=== PATIENT | female | born 1940 | race Caucasian/White ===

== ENCOUNTER 2016-10-24 15:14 | Inpatient (IN) ==
[2016-10-24] MEDS ORDERED: SODIUM CHLORIDE 0.9% 500 ML IV STA (15:30)
--- NOTE | 2016-10-24 16:02 | CT Report ---
History is head injury and pain There is mild diffuse atrophy with moderate patchy white matter low densities present No acute intracranial hemorrhage, mass effect, or evidence of acute cortical stroke is seen Extensive soft tissue swelling gas and facial bone fractures described on a facial CT of the same day. Impression: 1. Moderate patchy nonspecific white matter low densities most frequently associated with sequelae of microvascular disease 2. Facial bone fractures described on a facial bone CT of the same day The CT exam was performed using one or more of the following dose reduction techniques: Automated exposure control, adjustment of the mA and/or kV according to patient size, or use of iterative reconstruction technique. PROCEDURE INTERPRETED AT [facility] DEPARTMENT OF RADIOLOGY Final Report Signed by: Dr. Rosi Bowling
[2016-10-24 16:10] LABS: Hematocrit 30.4 VOL% (35.7-47.0); Hemoglobin 9.5 GM/DL (12.0-16.0); Mean Corpuscular HGB Conc 31.3 GM/DL (32-36); Mean Corpuscular Hemoglobin 32 PG (27-34); Mean Corpuscular Volume 101.7 FL (87-102); Mean Platelet Volume 9.9 FL (9.6-12.0); Platelet Count 121 T/CUMM (130-400); Red Blood Count 2.99 MC/CUMM (3.8-5.5); Red Cell Distribution Width 14.1 % (9.3-17.3); White Blood Count 5.3 T/CUMM (4-12)
[2016-10-24 16:11] LABS: Basophils % 0.2 % (0.0-0.8); Eosinophils # 0.2 10*3/uL (0.0-0.87); Eosinophils % 3.2 % (0.00-10.9); Immature Granulocytes % 0.4 %; Immature Granulocytes Absolute 0.02 #; Lymphocytes # 1.7 10*3/uL (1.4-4.0); Lymphocytes % 32.7 % (21.3-54.2); Monocytes # 0.5 10*3/uL (0.11-0.8); Monocytes % 9.5 % (1.7-12.7); Neutrophils # 2.8 10*3/uL (1.4-7.4)
--- NOTE | 2016-10-24 16:13 | CT Report ---
History is facial injury and pain with swelling Axial images obtained with 2-D multiplanar reconstruction images also stored and interpreted Findings: There is diffuse soft tissue swelling and soft tissue gas throughout the right face There is a near-complete hyperdense opacification of the right maxillary sinus There is a mildly comminuted nasal bone fracture with mild fractures the nasal septum as well which is minimally to the right of midline anteriorly. There are minimally displaced fracture lines through the anterior and posterior sams right maxillary sinus. There is a suspected nondisplaced fracture along the floor of the right orbit with tiny amounts of the intraorbital gas present. There is question of some very minimal buckling at the lateral wall of the right orbit more pronounced than on the left raising question of fracture on the right. The zygomatic arch is intact. The pterygoid wings are intact. Impression: Multiple facial bone fractures detailed above The CT exam was performed using one or more of the following dose reduction techniques: Automated exposure control, adjustment of the mA and/or kV according to patient size, or use of iterative reconstruction technique. PROCEDURE INTERPRETED AT [facility] DEPARTMENT OF RADIOLOGY Final Report Signed by: Dr. Rosi Bowling
[2016-10-24 16:27] LABS: Calcium 8.6 MG/DL (8.5-10.1); Potassium 3.9 MMOL/L (3.5-5.1)
--- NOTE | 2016-10-24 16:28 | CT Report ---
History is neck injury and pain Axial images obtained with two-dimensional plantar reconstruction images also stored and interpreted Findings: There is 5 mm subluxation at C4-5 with chronic facet changes at this level. There are degenerative changes throughout the cervical spine There is a tiny nondisplaced fracture of the left skull base at the articulation with the left lateral mass of C1 No additional cervical spine fractures are seen. There is a disc bulging and osteophytes with facet arthropathy present throughout cervical spine Impression: 1. Tiny nondisplaced fracture of the skull base at the articulation with the left lateral mass of C1 2. Degenerative changes without acute cervical spine fracture seen 3. 5 mm subluxation at C4-5 likely related to chronic facet disease The CT exam was performed using one or more of the following dose reduction techniques: Automated exposure control, adjustment of the mA and/or kV according to patient size, or use of iterative reconstruction technique. PROCEDURE INTERPRETED AT [facility] DEPARTMENT OF RADIOLOGY Final Report Signed by: Dr. Rosi Bowling
--- NOTE | 2016-10-24 16:30 | XRay Report ---
History is short of breath Comparison 02/18/2015 The sternal and hilar contours unchanged No congestive failure or confluent infiltrates seen. When the vessel shadows and rib calcifications overlie the right lung base Impression: No acute pathology seen PROCEDURE INTERPRETED AT [facility] DEPARTMENT OF RADIOLOGY Final Report Signed by: Dr. Rosi Bowling
[2016-10-24] MEDS ORDERED: ONDANSETRON 4 MG/2 ML VIAL ONE ×3 (16:39→19:55)
[2016-10-24] MEDS ORDERED: MORPHINE 2 MG/1 ML SYRINGE ONE (16:40)
[2016-10-24] MEDS ORDERED: MORPHINE 2 MG/1 ML SYRINGE IV STA (16:46)
[2016-10-24] MEDS ORDERED: ONDANSETRON 4 MG/2 ML VIAL IV STA (16:46)
--- NOTE | 2016-10-24 16:58 | EKG Report ---
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
--- NOTE | 2016-10-24 17:24 | Emergency Department Note ---
Cristian Marti Gwan, am scribing for, and in the presence of, Tao Duncan MD 15:35. Dakota Marti Phillip K, MD, personally performed the services described in this documentation, ascribed by Kirk Foster in my presence, and it is both accurate and complete [id number] . Arrival - Arrival Chief Complaint: Fall ED Nursing Triage Note: pt has about 6 inch laceration to forehead. pt fell from standing s/p hand slipping out door facing. pt has swelling to face and rt eye Mode of Arrival: Stretcher Limitations: No Limitations Source: Patient, Old Records Reviewed, RN Notes Reviewed - History of Present Illness HPI Narrative: Pt is a 76 y/o female, brought into ED by EMS with spinal package in place, who presents to the ED s/p fall today. Patient said that she fell down in a "dip" in the floor from her living room into her bedroom. Patient continued to stated that as she was falling she reached to grab hold of a 2x4 adjacent to the door facing and missed it causing injury to her head. Patient confirmed that she has pain in her right eye and jaw. She denies any pain in her hip, neck or head. During exam, backboard was removed but C-Collar remained in place. No other problems/complaints reported in ED. Onset (ago): minute(s) Consistency: constant Severity: severe Allergies/Adverse Reactions: Allergies Allergy/AdvReac Type Severity Reaction Status Date / Time No Known Allergies Allergy Verified 04/08/16 16:23 Home Medications: Home Medications Medication Instructions Recorded Confirmed Type Aspirin Chew Tab 81 mg PO DAILY 02/18/15 03/19/15 History Cetirizine HCl [ZyrTEC Cap] 10 mg PO DAILY 02/18/15 03/19/15 History Denosumab [Prolia] 1 ml IM DIRECTED 02/18/15 03/19/15 History Gabapentin Cap/Tab [Neurontin 300 mg PO TID 02/18/15 03/19/15 History Cap/Tab] Lovastatin 10 mg PO DAILY 02/18/15 03/19/15 History Methocarbamol Tab [Robaxin Tab] 500 mg PO QID 02/18/15 03/19/15 History Omeprazole [Prilosec] 20 mg PO DAILY 02/18/15 03/19/15 History Quinapril [Accupril] 20 mg PO DAILY 02/18/15 03/19/15 History Solifenacin [Vesicare] 5 mg PO DAILY 02/18/15 03/19/15 History clonazePAM TAB [KlonoPIN] 0.5 mg PO BEDTIME 02/18/15 03/19/15 History Albuterol Inhaler [Proventil 2 puff INH BID 02/19/15 03/19/15 History Inhaler] HYDROcodone/ACETAMIN 10-325 [[place] 1 tablet PO TID PRN 02/19/15 03/19/15 History 10-325] Acetaminophen Tab [Tylenol Tab] 650 mg PO Q6H PRN #0 tablet 02/25/15 03/19/15 Rx Docusate Sodium Cap [Colace Cap] 100 mg PO BID capsule 02/25/15 03/19/15 Rx Ferrous Sulfate Tab [Feosol 325 mg PO DAILY tablet 02/25/15 03/19/15 Rx Original Tab] Magnesium Oxide 800 mg PO BID #60 tablet 02/25/15 03/19/15 Rx NIFEdipine XL TAB [Procardia Xl] 30 mg PO BEDTIME #30 tablet 02/25/15 03/19/15 Rx Potassium Chloride Cap/Tab [K Dur] 20 meq PO BID #60 tablet 02/25/15 03/19/15 Rx Clindamycin Cap [Cleocin Cap] 300 mg PO Q6HR #40 capsule 03/24/16 Rx Valacyclovir HCl [Valacyclovir] 1,000 mg PO TID #21 tablet 03/24/16 Rx Menthol/Zinc Oxide Oint 1 applic TOP BID #71 gm 04/08/16 Rx [Calmoseptine Oint] Review of System - Review of System 12 point system: reviewed and no additional remarkable complaints except as stated - Review of System Eyes: Present: as per HPI, pain (right eye) Head/Ears/Nose/Throat: Present: see HPI, other (cut to head) Medical,Surgical,& Family Hx - Medical History Cardio: History of: Hypertension No history of: [place], Pacemaker, Cardiovascular Problems Neurology: No history of: Cerebrovascular Accident, Seizures HEENT: History of: Eye Problem (hx of macular degeneration of right eye, cataracts) Endocrine: No history of: Diabetes Mellitus (IDDM), Diabetes Mellitus (NIDDM) Respiratory: History of: Asthma, COPD, Respiratory Problems (emphysema) Renal: No history of: Renal Failure, Renal Problems Genitourinary: History of: Bladder Problem (hx of bladder surgery) No history of: Kidney Stones Gastrointestinal: History of: GERD No history of: Gastrointestinal Bleed, Liver Problems, GI Problems Musculoskeletal: History of: Back/Neck Problems, Degenerative Disk Disease ( lumbar) Hematology: History of: Anemia - Surgical History Cardiac Surgeries: Patient Denies: Femoral-Popliteal Bypass Graft, Cardiac Catheterization, Cardiac Surgery, Carotid Endarterectomy, Internal Defibrillator, Vascular Access Devices Thoracic Surgeries: Patient denies;: Lobectomy Neurologic Surgeries: Patient denies: Neurologic Surgery HEENT Surgeries: Surgical HX of: Eye Surgery (bilateral cataract surgery) Patient denies: Carotid Endarterectomy Abdominal Surgeries: Surgical HX of: Colonoscopy, EGD Patient denies: Splenectomy Reproductive Surgeries: Surgical HX of;: Genitourinary Surgery (pt states previous bladder surgery), Hysterectomy (1984) Orthopedic Surgeries: Surgical HX of;: Orthopedic Surgery, Total Hip Replacement (right) - Family History Family History: Reports;: Family Hypertension (mother, sister) - Social History Smoking Status: Never smoker Frequency of Alcohol Use: None Type of Drug Use: None Exam Vital Signs: Vital Signs Temperature 97 F L 10/24/16 15:15 Pulse Rate 88 10/24/16 15:15 Respiratory Rate 18 10/24/16 15:15 Blood Pressure 153/97 10/24/16 15:15 O2 Sat by Pulse Oximetry 98 10/24/16 15:15 - General General appearance: alert, in no apparent distress - Head Head exam: Present: other (14 similar laceration to the frontal scalp. Is also a large amount of swelling and ecchymosis noted of the right maxilla and right periorbital area.) - Eye Eye exam: Present: other (left pupil reacts normally. Unable to evaluate the right eye secondary to swelling.) - ENT ENT exam: Present: normal oropharynx, mucous membranes moist, normal external ear exam, other (un able to visualize the right TM.) - Neck Neck exam: Present: normal inspection, other (C-Collar in place). Absent: tenderness - Chest Chest inspection: Present: symmetric chest wall rise. Absent: tenderness - Respiratory Respiratory exam: Present: normal lung sounds bilaterally. Absent: respiratory distress - Cardiovascular Cardiovascular exam: Present: regular rate, normal rhythm, normal heart sounds. Absent: murmur, rubs - Abdominal Exam Abdominal exam: Present: soft, normal bowel sounds. Absent: distention, tenderness - Extremities Exam Extremities exam: Present: full ROM. Absent: tenderness - Back Exam Back exam: Present: normal inspection - Neurological Exam Neurological exam: Present: alert, oriented X3, CN II-XII intact. Absent: motor sensory deficit - Psychiatric Psychiatric exam: Present: normal affect, normal mood - Skin Skin exam: Present: other (14cm frontal laceration to scalp down to the bone) Course Course Narrative: Patient discussed with Dr. Quezada at 430. He will take to surgery to repair her scalp laceration. Results - Labs CBC & BMP: 10/24/16 15:58 10/24/16 15:58 Lab Results: I have reviewed the patients labs Labs: Laboratory Tests 10/24/16 15:58 WBC 5.3 RBC 2.99 L Hgb 9.5 L Hct 30.4 L MCHC 31.3 L Plt Count 121 L Laboratory Tests 10/24/16 10/24/16 15:58 15:58 Sodium 150 H Potassium 3.9 Chloride 108 H Carbon Dioxide 31 BUN 19 H Creatinine 0.90 BUN/Creatinine Ratio 21.00 H Glucose 122 H Blood Type AB POSITIVE Antibody Screen Negative - Diagnostic Findings Procedure: Chest x-ray: report reviewed by me (No acute pathololgy seen.), CT: report reviewed by me (Face CT: Mulitple facial bone fractures detailed above. Head CT: 1. Moderate patchy nonspecific white matter low dnsities most frequently associated with sequelae of microvascular disease. 2. Facial bone fracture described on a facial bone CT of the same day. Cervical Spine CT: 1. Tiny nondisplaced fracture of the skull base at the articulation with the left lateral mass of C1. 2. Degenerative changes without acute cervical spine fracture seen. 3. 5mm subluxation at C4-5 likely related to chronic facet disease. ) Disposition Clinical Impression: large frontal scalp laceration, fracture of the right maxillary sinus, prior to the right orbital floor, nondisplaced fracture base of the skull, Nasal bone fracture Case discussed with: patient, patient's family Disposition: Still a Patient Condition: Guarded
[2016-10-24] MEDS ORDERED: DEXAMETHASONE 4 MG/1 ML VIAL ONE (17:42)
[2016-10-24] MEDS ORDERED: PROPOFOL 200 MG/20 ML VIAL IV ONE (17:42)
[2016-10-24] MEDS ORDERED: LIDOCAINE 2% 5 ML VIAL ONE (17:42)
[2016-10-24] MEDS ORDERED: SUCCINYLCHOLINE 200 MG/10 ML VIAL ONE (17:42)
[2016-10-24] MEDS ORDERED: cefTRIAXone 1,000 MG VIAL ONE (18:07)
[2016-10-24] MEDS ORDERED: MUPIROCIN 2% OINT 22 GM TUBE TOP ONE (18:49)
[2016-10-24] MEDS ORDERED: BUPIVACAINE MPF 0.25% /EPI 30 ML VIAL ONE (19:04)
[2016-10-24] MEDS ORDERED: IBUPROFEN 600 MG TABLET PO PRN (19:37)
[2016-10-24] MEDS ORDERED: KETOROLAC 15 MG/1 ML VIAL IV PRN (19:37)
[2016-10-24] MEDS ORDERED: ONDANSETRON 4 MG/2 ML VIAL IV PRN ×2 (19:37→19:50)
[2016-10-24] MEDS ORDERED: ACETAMINOPHEN 500 MG TABLET PO PRN (19:37)
--- NOTE | 2016-10-24 19:45 | Anesthesia ---
Anesthesia Post OP - Post Ansesthetic Evaluation Patient seen in post op: Yes Resp: within normal limits CV: within normal limits Mental: within normal limits Temp: within normal limits [id number]: within normal limits Nausea and Vomiting: within normal limits Pain: within normal limits
--- NOTE | 2016-10-24 19:46 | History & Physical Report ---
Assessment and Plan - Time spent with patient Time spent with patient: Greater than 30 minutes (1) Laceration of forehead, complicated Status: Acute Assessment and plan: Repaired in the OR please see surgical note for more information we will observe at least overnight or a day I will consult medicine for medical management Current Visit: Yes Qualifiers: Encounter type: initial encounter Qualified Code(s): S01.81XA - Laceration without foreign body of other part of head, initial encounter (2) Fall (on) (from) other stairs and steps, initial encounter Status: Acute Current Visit: Yes (3) Nasal bone fracture Status: Acute Current Visit: Yes History of Present Illness Chief complaint: Fall with complex head laceration History of present illness: Ms. Neri is a 76 year old female with a fall and complex head laceration brought to the emergency room ENT consulted patient taken back to the OR for repair of complex head laceration. Will be observed overnight with medical management CT of neck reveals stable chronic degenerative changes and she is cleared to have c-collar taken off after surgery and awake and following commands Home Medications Medication Instructions Recorded Confirmed Type Aspirin Chew Tab 81 mg PO DAILY 02/18/15 03/19/15 History Cetirizine HCl [ZyrTEC Cap] 10 mg PO DAILY 02/18/15 03/19/15 History Denosumab [Prolia] 1 ml IM DIRECTED 02/18/15 03/19/15 History Gabapentin Cap/Tab [Neurontin 300 mg PO TID 02/18/15 03/19/15 History Cap/Tab] Lovastatin 10 mg PO DAILY 02/18/15 03/19/15 History Methocarbamol Tab [Robaxin Tab] 500 mg PO QID 02/18/15 03/19/15 History Omeprazole [Prilosec] 20 mg PO DAILY 02/18/15 03/19/15 History Quinapril [Accupril] 20 mg PO DAILY 02/18/15 03/19/15 History Solifenacin [Vesicare] 5 mg PO DAILY 02/18/15 03/19/15 History clonazePAM TAB [KlonoPIN] 0.5 mg PO BEDTIME 02/18/15 03/19/15 History Albuterol Inhaler [Proventil 2 puff INH BID 02/19/15 03/19/15 History Inhaler] HYDROcodone/ACETAMIN 10-325 [[place] 1 tablet PO TID PRN 02/19/15 03/19/15 History 10-325] Acetaminophen Tab [Tylenol Tab] 650 mg PO Q6H PRN #0 tablet 02/25/15 03/19/15 Rx Docusate Sodium Cap [Colace Cap] 100 mg PO BID capsule 02/25/15 03/19/15 Rx Ferrous Sulfate Tab [Feosol 325 mg PO DAILY tablet 02/25/15 03/19/15 Rx Original Tab] Magnesium Oxide 800 mg PO BID #60 tablet 02/25/15 03/19/15 Rx NIFEdipine XL TAB [Procardia Xl] 30 mg PO BEDTIME #30 tablet 02/25/15 03/19/15 Rx Potassium Chloride Cap/Tab [K Dur] 20 meq PO BID #60 tablet 02/25/15 03/19/15 Rx Clindamycin Cap [Cleocin Cap] 300 mg PO Q6HR #40 capsule 03/24/16 Rx Valacyclovir HCl [Valacyclovir] 1,000 mg PO TID #21 tablet 03/24/16 Rx Menthol/Zinc Oxide Oint 1 applic TOP BID #71 gm 04/08/16 Rx [Calmoseptine Oint] Allergies Allergy/AdvReac Type Severity Reaction Status Date / Time No Known Allergies Allergy Verified 04/08/16 16:23 12 point system: reviewed and no additional remarkable complaints except as stated Medical,Surgical,& Family Hx - Medical History Cardio: History of: Hypertension No history of: [place], Pacemaker, Cardiovascular Problems Neurology: No history of: Cerebrovascular Accident, Seizures HEENT: History of: Eye Problem (hx of macular degeneration of right eye, cataracts) Endocrine: No history of: Diabetes Mellitus (IDDM), Diabetes Mellitus (NIDDM) Respiratory: History of: Asthma, COPD, Respiratory Problems (emphysema) Renal: No history of: Renal Failure, Renal Problems Genitourinary: History of: Bladder Problem (hx of bladder surgery) No history of: Kidney Stones Gastrointestinal: History of: GERD No history of: Gastrointestinal Bleed, Liver Problems, GI Problems Musculoskeletal: History of: Back/Neck Problems, Degenerative Disk Disease ( lumbar) Hematology: History of: Anemia - Surgical History Cardiac Surgeries: Patient Denies: Femoral-Popliteal Bypass Graft, Cardiac Catheterization, Cardiac Surgery, Carotid Endarterectomy, Internal Defibrillator, Vascular Access Devices Thoracic Surgeries: Patient denies;: Lobectomy Neurologic Surgeries: Patient denies: Neurologic Surgery HEENT Surgeries: Surgical HX of: Eye Surgery (bilateral cataract surgery) Patient denies: Carotid Endarterectomy Abdominal Surgeries: Surgical HX of: Colonoscopy, EGD Patient denies: Splenectomy Reproductive Surgeries: Surgical HX of;: Genitourinary Surgery (pt states previous bladder surgery), Hysterectomy (1984) Orthopedic Surgeries: Surgical HX of;: Orthopedic Surgery, Total Hip Replacement (right) - Family History Family History: Reports;: Family Hypertension (mother, sister) - Social History Smoking Status: Never smoker Frequency of Alcohol Use: None Type of Drug Use: None Exam - Constitutional Vitals: Period Temp Pulse Resp BP Sys/Arzola Pulse Ox Last 24 Hr 97 F-99.9 F 88-99 18-20 153-172/96-97 97-98 General appearance: normal weight, mild distress - Head Head exam: Present: abrasion, contusion, hematoma, laceration (14 cm complex laceration involving the forehead extending through the frontalis muscle with complex repair in the OR) - Eye Eye exam: Present: EOMI, periorbital swelling - ENT ENT exam: Present: normal exam, normal external ear exam, normal oropharynx, other (CT reveals nondisplaced nasal bone fracture and possible orbital fracture with no gross herniation at this point. No obvious extraocular muscles entrapped) - Neck Neck exam: Present: other (Chronic 5 mm subluxation from degenerative changes nondisplaced base of skull possible fracture overall C-spine is cleared for removal of c-collar) - Respiratory Respiratory exam: Present: clear to auscultation bilaterally - Cardiovascular Cardiovascular exam: Present: regular rate and rhythm - GI/Abdominal GI/Abdominal exam: Present: normal bowel sounds - Extremities Exam Extremities exam: Present: normal inspection, normal capillary refill - Neurological Exam Neurological exam: Present: alert (Somewhat distressed over the situation but is aware and alert and oriented), oriented X3, CN II-XII intact - Psychiatric Psychiatric exam: Present: normal affect, normal mood - Skin Skin exam: Present: normal color, warm Results - Labs CBC & BMP: 10/24/16 15:58 10/24/16 15:58 Quality Measures - VTE Contraindication to Pharmacological VTE Prophylaxis: High Risk of Bleeding
[2016-10-24] MEDS ORDERED: HYDROmorphone 2 MG/1 ML VIAL IV PRN (19:50)
[2016-10-24] MEDS ORDERED: SEVOFLURANE 1 UNIT/15 MINUTE INH ONE (19:52)
[2016-10-24] MEDS ORDERED: MIDAZOLAM 2 MG/2 ML VIAL ONE (19:53)
[2016-10-24] MEDS ORDERED: fentaNYL 100 MCG/2 ML VIAL ONE (19:53)
[2016-10-24] MEDS ORDERED: HYDROmorphone 2 MG/1 ML VIAL ONE ×2 (19:53→19:55)
[2016-10-24] MEDS ORDERED: LACTATED RINGERS 1,000 ML IV SCH ×2 (20:00)
[2016-10-24] MEDS: cefTRIAXone 1,000 MG in SODIUM CHLORIDE 0.9% 100 ML IV SCH (20:36)
[2016-10-24] MEDS: DEXAMETHASONE 4 MG/1 ML VIAL IV SCH (20:37)
[2016-10-24] MEDS: MUPIROCIN 2% OINT 22 GM TUBE TOP SCH (21:10)
--- NOTE | 2016-10-24 21:30 | Hospitalist Consult Note ---
Assessment and Plan (1) Hypernatremia Status: Acute Current Visit: Yes (2) History of COPD Status: Acute Current Visit: Yes (3) Hypertension Status: Acute Current Visit: Yes (4) History of rheumatoid arthritis Status: Acute Current Visit: Yes (5) Laceration of forehead, complicated Status: Acute Current Visit: Yes Qualifiers: Encounter type: initial encounter Qualified Code(s): S01.81XA - Laceration without foreign body of other part of head, initial encounter (6) Fall (on) (from) other stairs and steps, initial encounter Status: Acute Assessment and plan: Our plan for this patient will be to provide gentle hydration with half-normal saline through the night recheck a BMP in 7 AM. Continue home meds as appropriate we will continue to follow along with you Current Visit: Yes History of Present Illness - Consult Narrative Reason for consult: Medical problems History of present illness: Ms. Neri is a 76 year old female with past medical history significant for rheumatoid arthritis hypertension asthma COPD degenerative disc disease who is in her normal state of health until today. Patient suffered a fall at her house and received a 14 cm complex laceration. This required closure in the operating room by Dr. Quezada. Patient's workup included a CT scan of her cervical spine and face and head. Patient c-collar was cleared and removed after surgery. Patient received multiple fractures in the face. Patient was taken to the OR and had a repair done of the complex laceration. I was consulted for her medical problems. CC: Kuldip Quezada, DO - Home Medications and Allergies Home Medications: Home Medications Medication Instructions Recorded Confirmed Type Aspirin Chew Tab 81 mg PO DAILY 02/18/15 10/24/16 History Cetirizine HCl [ZyrTEC Cap] 10 mg PO DAILY 02/18/15 10/24/16 History Denosumab [Prolia] 1 ml IM DIRECTED 02/18/15 10/24/16 History Gabapentin Cap/Tab [Neurontin 300 mg PO TID 02/18/15 10/24/16 History Cap/Tab] Lovastatin 10 mg PO DAILY 02/18/15 10/24/16 History Methocarbamol Tab [Robaxin Tab] 500 mg PO QID 02/18/15 10/24/16 History Omeprazole [Prilosec] 20 mg PO DAILY 02/18/15 10/24/16 History Quinapril [Accupril] 20 mg PO DAILY 02/18/15 10/24/16 History Solifenacin [Vesicare] 5 mg PO DAILY 02/18/15 10/24/16 History clonazePAM TAB [KlonoPIN] 0.5 mg PO BEDTIME 02/18/15 10/24/16 History Albuterol Inhaler [Proventil 2 puff INH BID 02/19/15 10/24/16 History Inhaler] HYDROcodone/ACETAMIN 10-325 [[place] 1 tablet PO TID PRN 02/19/15 10/24/16 History 10-325] Acetaminophen Tab [Tylenol Tab] 650 mg PO Q6H PRN #0 tablet 02/25/15 10/24/16 Rx Docusate Sodium Cap [Colace Cap] 100 mg PO BID capsule 02/25/15 10/24/16 Rx Ferrous Sulfate Tab [Feosol 325 mg PO DAILY tablet 02/25/15 10/24/16 Rx Original Tab] Magnesium Oxide 800 mg PO BID #60 tablet 02/25/15 10/24/16 Rx NIFEdipine XL TAB [Procardia Xl] 30 mg PO BEDTIME #30 tablet 02/25/15 10/24/16 Rx Potassium Chloride Cap/Tab [K Dur] 20 meq PO BID #60 tablet 02/25/15 10/24/16 Rx Clindamycin Cap [Cleocin Cap] 300 mg PO Q6HR #40 capsule 03/24/16 10/24/16 Rx Valacyclovir HCl [Valacyclovir] 1,000 mg PO TID #21 tablet 03/24/16 10/24/16 Rx Menthol/Zinc Oxide Oint 1 applic TOP BID #71 gm 04/08/16 10/24/16 Rx [Calmoseptine Oint] Allergies/Adverse Reactions: Allergies Allergy/AdvReac Type Severity Reaction Status Date / Time No Known Allergies Allergy Verified 10/24/16 21:09 Medical,Surgical,& Family Hx - Medical History Cardio: History of: Hypertension No history of: CT, Pacemaker, Cardiovascular Problems Neurology: No history of: Cerebrovascular Accident, Seizures HEENT: History of: Eye Problem (hx of macular degeneration of right eye, cataracts) Endocrine: No history of: Diabetes Mellitus (IDDM), Diabetes Mellitus (NIDDM) Respiratory: History of: Asthma, COPD, Respiratory Problems (emphysema) Renal: No history of: Renal Failure, Renal Problems Genitourinary: History of: Bladder Problem (hx of bladder surgery) No history of: Kidney Stones Gastrointestinal: History of: GERD No history of: Gastrointestinal Bleed, Liver Problems, GI Problems Musculoskeletal: History of: Back/Neck Problems, Degenerative Disk Disease ( lumbar) Hematology: History of: Anemia - Surgical History Cardiac Surgeries: Patient Denies: Femoral-Popliteal Bypass Graft, Cardiac Catheterization, Cardiac Surgery, Carotid Endarterectomy, Internal Defibrillator, Vascular Access Devices Thoracic Surgeries: Patient denies;: Lobectomy Neurologic Surgeries: Patient denies: Neurologic Surgery HEENT Surgeries: Surgical HX of: Eye Surgery (bilateral cataract surgery) Patient denies: Carotid Endarterectomy Abdominal Surgeries: Surgical HX of: Colonoscopy, EGD Patient denies: Splenectomy Reproductive Surgeries: Surgical HX of;: Genitourinary Surgery (pt states previous bladder surgery), Hysterectomy (1984) Orthopedic Surgeries: Surgical HX of;: Orthopedic Surgery, Total Hip Replacement (right) - Family History Family History: Reports;: Family Hypertension (mother, sister) - Social History Smoking Status: Never smoker Frequency of Alcohol Use: None Type of Drug Use: None 12 point system: reviewed and no additional remarkable complaints except as stated Exam - Constitutional Vitals: Period Temp Pulse Resp BP Sys/Arzola Pulse Ox Last 24 Hr 98.1 F-99.6 F 93-97 16-18 124-161/73-93 96-100 General appearance: normal weight - Head Head exam: Present: other (Patient has a bandage on her forehead and ice packs on her eyes) - Eye Eye exam: Present: other (Unable to examine secondary to icepack) - ENT ENT exam: Present: normal exam - Neck Neck exam: Present: normal inspection - Respiratory Respiratory exam: Present: clear to auscultation bilaterally - Cardiovascular Cardiovascular exam: Present: regular rate and rhythm - GI/Abdominal GI/Abdominal exam: Present: normal bowel sounds - Extremities Exam Extremities exam: Present: normal inspection - Back Exam Back exam: Present: normal inspection - Neurological Exam Neurological exam: Present: alert - Psychiatric Psychiatric exam: Present: normal affect - Skin Skin exam: Present: normal color Results - Labs CBC & BMP: 10/24/16 15:58 10/24/16 15:58 Quality Measures - VTE Contraindication to Pharmacological VTE Prophylaxis: High Risk of Bleeding
[2016-10-24] MEDS ORDERED: ACETAMINOPHEN 325 MG TABLET PO PRN (21:37)
[2016-10-24] MEDS: SODIUM CHLORIDE 0.45% 1,000 ML IV SCH (22:52)
[2016-10-25] MEDS: DEXAMETHASONE 4 MG/1 ML VIAL IV SCH ×3 (03:42→21:25)
[2016-10-25] MEDS: ALBUTEROL 2.5 MG/3 ML NEB RESP TX SCH ×2 (07:04→18:30)
[2016-10-25 07:18] LABS: Basophils % 0.1 % (0.0-0.8); Hematocrit 24.3 VOL% (35.7-47.0); Hemoglobin 7.8 GM/DL (12.0-16.0); Immature Granulocytes % 0.8 %; Immature Granulocytes Absolute 0.06 #; Lymphocytes # 0.7 10*3/uL (1.4-4.0); Lymphocytes % 9.6 % (21.3-54.2); Mean Corpuscular HGB Conc 32.1 GM/DL (32-36); Mean Corpuscular Hemoglobin 32 PG (27-34); Mean Platelet Volume 10.1 FL (9.6-12.0); Monocytes # 0.1 10*3/uL (0.11-0.8); Monocytes % 1.5 % (1.7-12.7); Neutrophils # 6.4 10*3/uL (1.4-7.4); Platelet Count 106 T/CUMM (130-400); Red Blood Count 2.43 MC/CUMM (3.8-5.5); Red Cell Distribution Width 14.1 % (9.3-17.3); White Blood Count 7.3 T/CUMM (4-12)
[2016-10-25 07:27] LABS: Hypochromasia Slight; Polychromasia Slight
[2016-10-25 07:40] LABS: Calcium 8.3 MG/DL (8.5-10.1); Magnesium 2.1 MG/DL (1.8-2.4); Osmolality,Calculated 296.4 MOS/KG (273-304); Potassium 4.5 MMOL/L (3.5-5.1)
[2016-10-25] MEDS ORDERED: SODIUM CHLORIDE 0.9% 250 ML IV PRN (07:47)
--- NOTE | 2016-10-25 07:50 | Hospitalist Progress Note ---
Assessment and Plan (1) Acute blood loss anemia Status: Acute Assessment and plan: we will transfuse with one unit of packed cells, cbc in am Current Visit: Yes (2) Hypernatremia Status: Acute Assessment and plan: Continue 1/2Na, follow bmp in am Current Visit: Yes (3) History of rheumatoid arthritis Status: Acute Assessment and plan: stable Current Visit: Yes (4) Hypertension Status: Acute Assessment and plan: stable on current regime. Current Visit: Yes (5) Dyslipidemia Status: Acute Assessment and plan: able on statins Current Visit: Yes (6) Laceration of forehead, complicated Status: Acute Assessment and plan: surgery is following Current Visit: Yes Qualifiers: Encounter type: initial encounter Qualified Code(s): S01.81XA - Laceration without foreign body of other part of head, initial encounter Hospitalist: Subjective Interval history: Patient seen, she was reluctant to be transfused with blood. She wanted her family to give the consent. .H/H dropped to 7.8/24.3 Exam - Constitutional Vitals: Period Temp Pulse Resp BP Sys/Arzola Pulse Ox Last 24 Hr 97.6 F-99.8 F 81-97 16-20 106-167/65-93 92-100 General appearance: no acute distress, other (forehead bandaged with multiple bruises on the face) - Head Head exam: Present: normal inspection - Neck Neck exam: Present: normal inspection - Respiratory Respiratory exam: Present: clear to auscultation bilaterally - Cardiovascular Cardiovascular exam: Present: regular rate and rhythm - GI/Abdominal GI/Abdominal exam: Present: normal bowel sounds - Extremities Exam Extremities exam: Present: normal inspection Results - Labs CBC & BMP: 10/25/16 06:55 10/25/16 06:55 Lab Results: I have reviewed the past 24 hour labs Quality Measures - VTE Contraindication to Pharmacological VTE Prophylaxis: High Risk of Bleeding Specialty Discharge - Follow Up or Referrals Follow up with: Kuldip Quezada DO [Physician] -
--- NOTE | 2016-10-25 08:04 | Progress Note ---
Assessment and Plan - Time spent with patient Time spent with patient: Less than 30 minutes (1) Laceration of forehead, complicated Status: Acute Assessment and plan: Repaired in the OR please see surgical note for more information we will observe at least overnight or a day I will consult medicine for medical management 10/25/2016 postop day #1 Plan for discharge as soon as possibly tomorrow if medically cleared, rn case management consult, physical therapy consult to help ambulate, addition of Ambien as needed nightly, message to caregiver patient may blow her nose as needed, I have reviewed and agree with the hospitalists transfusion plans and treatment and I thank them for their help with this case. Current Visit: Yes Qualifiers: Encounter type: initial encounter Qualified Code(s): S01.81XA - Laceration without foreign body of other part of head, initial encounter (2) Fall (on) (from) other stairs and steps, initial encounter Status: Acute Current Visit: Yes (3) Nasal bone fracture Status: Acute Current Visit: Yes Family Medicine PN Sub Interval history: Postop day #1. Patient had some difficulty sleeping last night I will add Ambien as needed to her chart. Additionally we will get rn case management to evaluate the patient and work on hopefully discharging her tomorrow if she is medically cleared and well if not we can continue to watch her. She states that she has some nasal drainage and epistaxis that is most likely from her previous fall and does not appear to be acute at this time I mentioned to the nurses it is okay for her to blow her nose. We will continue to watch for any changing signs or mentation make sure we do not have any late onset cerebral hemorrhage. Exam (Progress Note) - Constitutional Vitals: Period Temp Pulse Resp BP Sys/Arzola Pulse Ox Last 24 Hr 97.6 F-99.8 F 81-97 16-20 106-167/65-93 92-100 General appearance: normal weight, no acute distress - Head Head exam: Present: abrasion, contusion, hematoma, laceration (Healing well the nurses have done well keeping it moist with mupirocin as instructed) - Eye Eye exam: Present: EOMI, periorbital swelling - ENT ENT exam: Present: normal exam, normal external ear exam, normal oropharynx, other (Mild old epistaxis no acute hemorrhage) - Neck Neck exam: Present: normal inspection, lymphadenopathy - Respiratory Respiratory exam: Present: other (No shortness of breath or difficulty breathing ) - GI/Abdominal GI/Abdominal exam: Present: soft (No gross organomegaly) - Extremities Exam Extremities exam: Present: normal inspection, normal capillary refill - Neurological Exam Neurological exam: Present: alert, oriented X3, CN II-XII intact - Psychiatric Psychiatric exam: Present: normal affect, normal mood - Skin Skin exam: Present: normal color, warm, other (Ecchymosis of the left shoulder and face from the fall) Results - Labs CBC & BMP: 10/25/16 06:55 10/25/16 06:55 Lab Results: I have reviewed the past 24 hour labs (I agree with hospitalist transfusing order that will be performed this morning) - Diagnostic Findings Procedure: CT: pending, image reviewed by me, report reviewed by me Quality Measures - VTE Contraindication to Pharmacological VTE Prophylaxis: High Risk of Bleeding
[2016-10-25 08:14] LABS: Free T4 (Free Thyroxine) 1.45 NG/DL (0.76-1.46); Risk Ratio 4.56; Thyroid Stimulating Hormone 1.7 uIU/ml (0.358-3.74); VLDL CHOLESTEROL 24.2 MG/DL
[2016-10-25] MEDS: cefTRIAXone 1,000 MG in SODIUM CHLORIDE 0.9% 100 ML IV SCH ×2 (08:57→21:26)
[2016-10-25] MEDS: METHOCARBAMOL 500 MG TABLET PO SCH ×4 (08:58→21:31)
[2016-10-25] MEDS: FERROUS SULFATE 325 MG TABLET PO SCH (08:58)
[2016-10-25] MEDS: DOCUSATE SODIUM 100 MG CAPSULE PO SCH ×3 (08:59→21:31)
[2016-10-25] MEDS: CETIRIZINE 10 MG TABLET PO SCH (08:59)
[2016-10-25] MEDS: QUINAPRIL 20 MG TABLET PO SCH (08:59)
[2016-10-25] MEDS: GABAPENTIN 300 MG CAPSULE PO SCH ×3 (08:59→21:31)
[2016-10-25] MEDS: PANTOPRAZOLE 40 MG TABLET PO SCH (08:59)
[2016-10-25] MEDS: ASPIRIN CHEW 81 MG TABLET PO SCH (08:59)
[2016-10-25] MEDS: valACYclovir 500 MG TABLET PO SCH ×4 (08:59→21:31)
[2016-10-25] MEDS: MAGNESIUM OXIDE 400 MG TABLET PO SCH ×2 (08:59→21:31)
[2016-10-25] MEDS: LOVASTATIN 20 MG TABLET PO SCH (08:59)
[2016-10-25] MEDS: SOLIFENACIN 5 MG TABLET PO SCH (08:59)
[2016-10-25] MEDS: POTASSIUM CHLORIDE 20 MEQ TABLET PO SCH ×2 (08:59→21:31)
[2016-10-25] MEDS: MUPIROCIN 2% OINT 22 GM TUBE TOP SCH ×3 (09:04→21:32)
[2016-10-25] MEDS: MENTHOL/ZINC OXIDE OINT 71 GM JAR TOP SCH ×3 (09:05→21:32)
[2016-10-25 14:48] LABS: Apearance,Urine CLEAR (Clear); Bacteria,Urine Occasional /HPF (Few); Bilirubin,Urine Negative (Negative); Blood, Urine Negative (Negative); Glucose,Urine (UA) 50 mg/dL (Negative); Ketones,Urine Negative (Negative); Mucus,Urine Occasional /LPF (Occasional); Nitrite,Urine Negative (Negative); Protein,Urine Negative; RBC,Urine 2 /HPF (0-4); Urine Color Yellow (Yellow); Urine Specific Gravity 1.014 (1.001-1.035); Urine Urobilinogen < 2.0 EU/DL (0.2-1.0); WBC,Urine 4 /HPF (0-6)
[2016-10-25] MEDS: clonazePAM 0.5 MG TABLET PO SCH (21:31)
[2016-10-25] MEDS: SODIUM CHLORIDE 0.45% 1,000 ML IV SCH (21:31)
[2016-10-25] MEDS: ZALEPLON 5 MG CAPSULE PO PRN (21:40)
[2016-10-26] MEDS: DEXAMETHASONE 4 MG/1 ML VIAL IV SCH ×3 (04:36→21:14)
[2016-10-26 06:05] LABS: Basophils % 0.1 % (0.0-0.8); Hematocrit 20.9 VOL% (35.7-47.0); Hemoglobin 6.8 GM/DL (12.0-16.0); Immature Granulocytes % 0.7 %; Immature Granulocytes Absolute 0.05 #; Lymphocytes # 0.6 10*3/uL (1.4-4.0); Lymphocytes % 7.6 % (21.3-54.2); Mean Corpuscular HGB Conc 32.5 GM/DL (32-36); Mean Corpuscular Hemoglobin 32 PG (27-34); Mean Corpuscular Volume 98.6 FL (87-102); Mean Platelet Volume 10.9 FL (9.6-12.0); Monocytes # 0.3 10*3/uL (0.11-0.8); Monocytes % 4.1 % (1.7-12.7); Neutrophils # 6.3 10*3/uL (1.4-7.4); Neutrophils % 87.5 % (38.7-73.9); Platelet Count 101 T/CUMM (130-400); Red Blood Count 2.12 MC/CUMM (3.8-5.5); Red Cell Distribution Width 14.8 % (9.3-17.3); White Blood Count 7.2 T/CUMM (4-12)
[2016-10-26] MEDS: SODIUM CHLORIDE 0.45% 1,000 ML IV SCH ×3 (06:05→19:43)
[2016-10-26 06:28] LABS: Calcium 8.3 MG/DL (8.5-10.1); Osmolality,Calculated 301.1 MOS/KG (273-304); Potassium 4.4 MMOL/L (3.5-5.1)
[2016-10-26 06:46] LABS: Hypochromasia 1+; Lymphocytes 8 % (20-55); Ovalocytes Slight; Platelet Estimate Normal; Segmented Neutrophils 87 % (50-85); Total Cells Counted 100
[2016-10-26] MEDS: ALBUTEROL 2.5 MG/3 ML NEB RESP TX SCH ×2 (07:24→19:23)
--- NOTE | 2016-10-26 08:44 | Progress Note ---
Assessment and Plan - Time spent with patient Time spent with patient: Greater than 30 minutes (1) Laceration of forehead, complicated Status: Acute Assessment and plan: Repaired in the OR please see surgical note for more information we will observe at least overnight or a day I will consult medicine for medical management 10/25/2016 postop day #1 Plan for discharge as soon as possibly tomorrow if medically cleared, mental health case manager consult, physical therapy consult to help ambulate, addition of Ambien as needed nightly, message to caregiver patient may blow her nose as needed, I have reviewed and agree with the hospitalists transfusion plans and treatment and I thank them for their help with this case. 10/26/2016 Unfortunately unless patient changes her mind we may need to watch the patient for another day additionally her symptoms may linger because of her refusal of blood products. Additionally with her history of a fall and bruising of the lower extremities and her same she is having difficulty ambulating I think it would be prudent while were waiting to obtain x-rays of her hips make sure that her left hip is not broken and there is no displacement of her right hip or the hardware. If the patient changes her mind and desires to go home today I would not be against this. Current Visit: Yes Qualifiers: Encounter type: initial encounter Qualified Code(s): S01.81XA - Laceration without foreign body of other part of head, initial encounter (2) Fall (on) (from) other stairs and steps, initial encounter Status: Acute Current Visit: Yes (3) Nasal bone fracture Status: Acute Current Visit: Yes Family Medicine PN Sub Interval history: From a surgical and postop perspective the patient would be cleared to go home as I had planned unfortunately the patient's refusal/reluctance to receive any medical therapy may cause an extra day or 2 in the hospital. The patient did sleep better last night though she states she was little confused when she woke up which is not uncommon. Per notes it appears that home health has been set up which is and will be needed. Exam (Progress Note) - Constitutional Vitals: Period Temp Pulse Resp BP Sys/Arzola Pulse Ox Last 24 Hr 97.2 F-99.3 F 73-110 17-22 109-155/57-73 90-98 General appearance: normal weight, mild distress, other (She does report some weakness which is consistent with a hemoglobin of 6 even though she is reluctant for blood transfusion) - Head Head exam: Present: abrasion, contusion, hematoma, laceration (Laceration repaired and dressed well healing well. Continued ecchymosis improving) - Eye Eye exam: Present: EOMI, periorbital swelling (Markedly decreased from yesterday still very severe but the patient is able to open her eyes and has no difficulty with her vision.) Pupils: Present: KAREEM - ENT ENT exam: Present: normal exam, normal external ear exam, normal oropharynx, other (The patient is complaining of coughing and spitting up some dried blood which is understandable secondary to the trauma and there will be breakdown of the blood clots in her sinuses from the fall she showed me what she was spitting up and this is very much normal and not of clinical concern) - Neck Neck exam: Present: normal inspection (Some dependent ecchymosis from her face within normal limits) - Respiratory Respiratory exam: Present: other (No shortness of breath or difficulty breathing ) - GI/Abdominal GI/Abdominal exam: Present: soft - Extremities Exam Extremities exam: Present: other (She does have lower extremity ecchymosis with physical therapy working with her making sure that she is improving.) - Back Exam Back exam: Present: normal inspection - Neurological Exam Neurological exam: Present: alert, oriented X3, CN II-XII intact - Psychiatric Psychiatric exam: Present: normal affect, normal mood, agitated (She is somewhat agitated but per discussion with family and nursing this is considered baseline patient also admits that she does struggle with anxiety and is easily agitated) - Skin Skin exam: Present: normal color (Ecchymosis throughout consistent with her injuries), warm Results - Labs CBC & BMP: 10/26/16 04:34 10/26/16 04:34 Lab Results: I have reviewed the past 24 hour labs (Continued drop in hemoglobin this could be delusional as we have rehydrated the patient she does note being somewhat weak which is possibly secondary to this acute decrease in her chronic anemia.) - Diagnostic Findings Procedure: CT: pending, image reviewed by me, report reviewed by me Quality Measures - VTE Contraindication to Pharmacological VTE Prophylaxis: High Risk of Bleeding Specialty Discharge - Follow Up or Referrals Follow up with: Kuldip Quezada DO [Physician] -
[2016-10-26] MEDS: METHOCARBAMOL 500 MG TABLET PO SCH ×4 (09:37→21:14)
[2016-10-26] MEDS: GABAPENTIN 300 MG CAPSULE PO SCH ×3 (09:37→21:13)
[2016-10-26] MEDS: SOLIFENACIN 5 MG TABLET PO SCH (09:38)
[2016-10-26] MEDS: ASPIRIN CHEW 81 MG TABLET PO SCH (09:38)
[2016-10-26] MEDS: DOCUSATE SODIUM 100 MG CAPSULE PO SCH ×2 (09:39→21:13)
[2016-10-26] MEDS: FERROUS SULFATE 325 MG TABLET PO SCH (09:39)
[2016-10-26] MEDS: PANTOPRAZOLE 40 MG TABLET PO SCH (09:39)
[2016-10-26] MEDS: MAGNESIUM OXIDE 400 MG TABLET PO SCH ×2 (09:41→21:13)
[2016-10-26] MEDS: valACYclovir 500 MG TABLET PO SCH ×3 (09:42→21:13)
[2016-10-26] MEDS: LOVASTATIN 20 MG TABLET PO SCH (09:43)
[2016-10-26] MEDS: CETIRIZINE 10 MG TABLET PO SCH (09:45)
[2016-10-26] MEDS: QUINAPRIL 20 MG TABLET PO SCH (09:45)
[2016-10-26] MEDS: POTASSIUM CHLORIDE 20 MEQ TABLET PO SCH ×2 (09:45→21:14)
[2016-10-26] MEDS: cefTRIAXone 1,000 MG in SODIUM CHLORIDE 0.9% 100 ML IV SCH ×2 (09:46→21:14)
[2016-10-26] MEDS: MUPIROCIN 2% OINT 22 GM TUBE TOP SCH ×3 (09:50→21:14)
[2016-10-26] MEDS: MENTHOL/ZINC OXIDE OINT 71 GM JAR TOP SCH ×2 (09:51→21:14)
--- NOTE | 2016-10-26 13:47 | XRay Report ---
XR hip 5V BI w pelvis Indication: Fall. Pain. Pelvis one view, and bilateral hips 2 views each, 5 views total: Patient is osteopenic and at least mildly obese. Image quality degraded as a result. No sacral fracture identified. Pelvic ring is intact with no fracture or diastases seen. Right BALDEMAR noted. Alignment is anatomic. No periprosthetic fracture on the right. Severe advanced degenerative changes of the left hip are present with collapse of the joint space and remodeling of the articular surfaces. I see no acute fracture in the left. No dislocation. Impression: No acute bony injury identified. Right BALDEMAR. Severe end-stage arthritis left hip. PROCEDURE INTERPRETED AT [facility] DEPARTMENT OF RADIOLOGY Final Report Signed by: Aamir Thrasher M.D.
--- NOTE | 2016-10-26 16:38 | Hospitalist Progress Note ---
Assessment and Plan (1) Acute blood loss anemia Status: Acute Assessment and plan: Patient doesnt want transfusion right now. She said she will wait till tomorrow and see what are levels will be before deciding. Repeat CBC in am.Continue iron tablets.Hold ASA Current Visit: Yes (2) Hypernatremia Status: Acute Assessment and plan: Continue 1/2Na, follow bmp in am Current Visit: Yes (3) History of rheumatoid arthritis Status: Acute Assessment and plan: stable Current Visit: Yes (4) Hypertension Status: Acute Assessment and plan: Borderline.Hold accupril for now Current Visit: Yes (5) Dyslipidemia Status: Acute Assessment and plan: stable on statins Current Visit: Yes (6) Laceration of forehead, complicated Status: Acute Assessment and plan: surgery is following Current Visit: Yes Qualifiers: Encounter type: initial encounter Qualified Code(s): S01.81XA - Laceration without foreign body of other part of head, initial encounter (7) Hyperglycemia Status: Acute Assessment and plan: ? steroid induced. Sliding scale insulin, accuchecks, HbA1C level, Current Visit: Yes Hospitalist: Subjective Interval history: Patient seen. She was requesting for a russ, stating she could easily fall whenever she is trying to get to the bathroom. Exam - Constitutional Vitals: Period Temp Pulse Resp BP Sys/Arzola Pulse Ox Last 24 Hr 97.6 F-99.3 F 88-110 17-22 109-123/57-64 90-98 General appearance: other (forehead bandaged, multiple bruises on the face) - Respiratory Respiratory exam: Present: clear to auscultation bilaterally - Cardiovascular Cardiovascular exam: Present: regular rate and rhythm - GI/Abdominal GI/Abdominal exam: Present: normal bowel sounds - Extremities Exam Extremities exam: Present: normal inspection - Neurological Exam Neurological exam: Present: alert, oriented X3 Results - Labs CBC & BMP: 10/26/16 04:34 10/26/16 04:34 Lab Results: I have reviewed the past 24 hour labs Quality Measures - VTE Contraindication to Pharmacological VTE Prophylaxis: High Risk of Bleeding Specialty Discharge - Follow Up or Referrals Follow up with: Kuldip Quezada DO [Physician] -
[2016-10-26] MEDS ORDERED: DEXTROSE 50% 25 GM/50 ML VIAL IV PRN (16:44)
[2016-10-26] MEDS ORDERED: GLUCAGON 1 MG VIAL IM PRN (16:44)
[2016-10-26] MEDS: INSULIN REGULAR 100 UNIT/ML SUBCUT SCH (21:12)
[2016-10-26] MEDS: clonazePAM 0.5 MG TABLET PO SCH (21:13)
[2016-10-27] MEDS: DEXAMETHASONE 4 MG/1 ML VIAL IV SCH (03:00)
[2016-10-27 05:30] LABS: Hematocrit 22.1 VOL% (35.7-47.0); Immature Granulocytes % 1.4 %; Immature Granulocytes Absolute 0.09 #; Lymphocytes # 0.6 10*3/uL (1.4-4.0); Lymphocytes % 8.6 % (21.3-54.2); Mean Corpuscular HGB Conc 31.7 GM/DL (32-36); Mean Corpuscular Hemoglobin 32 PG (27-34); Mean Corpuscular Volume 101.8 FL (87-102); Mean Platelet Volume 10.5 FL (9.6-12.0); Monocytes # 0.2 10*3/uL (0.11-0.8); Monocytes % 3.7 % (1.7-12.7); Neutrophils # 5.6 10*3/uL (1.4-7.4); Neutrophils % 86.3 % (38.7-73.9); Platelet Count 114 T/CUMM (130-400); Red Blood Count 2.17 MC/CUMM (3.8-5.5); Red Cell Distribution Width 14.8 % (9.3-17.3); White Blood Count 6.5 T/CUMM (4-12)
[2016-10-27 06:07] LABS: Calcium 8.6 MG/DL (8.5-10.1); Osmolality,Calculated 303.1 MOS/KG (273-304); Potassium 4.5 MMOL/L (3.5-5.1)
[2016-10-27] MEDS: ALBUTEROL 2.5 MG/3 ML NEB RESP TX SCH ×2 (07:20→20:06)
[2016-10-27] MEDS: INSULIN REGULAR 100 UNIT/ML SUBCUT SCH ×4 (09:43→21:39)
[2016-10-27] MEDS: cefTRIAXone 1,000 MG in SODIUM CHLORIDE 0.9% 100 ML IV SCH ×2 (09:46→21:35)
[2016-10-27] MEDS: SOLIFENACIN 5 MG TABLET PO SCH (09:50)
[2016-10-27] MEDS: POTASSIUM CHLORIDE 20 MEQ TABLET PO SCH ×2 (09:51→21:39)
[2016-10-27] MEDS: GABAPENTIN 300 MG CAPSULE PO SCH ×3 (09:51→21:38)
[2016-10-27] MEDS: CETIRIZINE 10 MG TABLET PO SCH (09:51)
[2016-10-27] MEDS: PANTOPRAZOLE 40 MG TABLET PO SCH (09:51)
[2016-10-27] MEDS: valACYclovir 500 MG TABLET PO SCH ×3 (09:52→21:38)
[2016-10-27] MEDS: MAGNESIUM OXIDE 400 MG TABLET PO SCH ×2 (09:52→21:38)
[2016-10-27] MEDS: DOCUSATE SODIUM 100 MG CAPSULE PO SCH ×2 (09:52→21:39)
[2016-10-27] MEDS: METHOCARBAMOL 500 MG TABLET PO SCH ×4 (09:52→21:47)
[2016-10-27] MEDS: FERROUS SULFATE 325 MG TABLET PO SCH (09:53)
[2016-10-27] MEDS: LOVASTATIN 20 MG TABLET PO SCH (09:53)
--- NOTE | 2016-10-27 14:06 | Hospitalist Progress Note ---
Assessment and Plan (1) Acute blood loss anemia Status: Acute Assessment and plan: 10/26/2016 Patient doesnt want transfusion right now. She said she will wait till tomorrow and see what are levels will be before deciding. Repeat CBC in am.Continue iron tablets.Hold ASA 10/27/2016-H/H are 7.0/22.1. Continue with iron tablets Current Visit: Yes (2) Hypernatremia Status: Acute Assessment and plan: Encourage patient to drink water. follow bmp in am Current Visit: Yes (3) History of rheumatoid arthritis Status: Acute Assessment and plan: stable Current Visit: Yes (4) Hypertension Status: Acute Assessment and plan: 10/26/2016 Borderline.Hold accupril for now 10/27/2016 Bp is creeping back up -restart accupril at a lower dose of 2.5mg daily, follow response. -DC IVF Current Visit: Yes (5) Dyslipidemia Status: Acute Assessment and plan: stable on statins Current Visit: Yes (6) Laceration of forehead, complicated Status: Acute Assessment and plan: surgery is following Current Visit: Yes Qualifiers: Encounter type: initial encounter Qualified Code(s): S01.81XA - Laceration without foreign body of other part of head, initial encounter (7) Hyperglycemia Status: Acute Assessment and plan: ? steroid induced. start Lantus 10units qhs, continue Sliding scale insulin, accuchecks, HbA1C level-5.5, Current Visit: Yes Hospitalist: Subjective Interval history: Patient seen today. She is too weak to be dcd home, she will require a swing bed. Case manger notified, she is working on it.Her H/H were 7.0/22.1 respectively. She doesnt want to be transfused. Exam - Constitutional Vitals: Period Temp Pulse Resp BP Sys/Arzola Pulse Ox Last 24 Hr 97.4 F-98.9 F 89-97 12-22 115-153/64-78 90-99 General appearance: other (forehead bandaged and multiple facial bruises) - Respiratory Respiratory exam: Present: clear to auscultation bilaterally - Cardiovascular Cardiovascular exam: Present: regular rate and rhythm - GI/Abdominal GI/Abdominal exam: Present: normal bowel sounds - Extremities Exam Extremities exam: Present: normal inspection Results - Labs CBC & BMP: 10/27/16 04:08 10/27/16 04:08 Lab Results: I have reviewed the past 24 hour labs Quality Measures - VTE Contraindication to Pharmacological VTE Prophylaxis: High Risk of Bleeding Specialty Discharge - Follow Up or Referrals Follow up with: Kuldip Quezada DO [Physician] -
[2016-10-27] MEDS: MUPIROCIN 2% OINT 22 GM TUBE TOP SCH ×3 (14:37→21:47)
[2016-10-27] MEDS: MENTHOL/ZINC OXIDE OINT 71 GM JAR TOP SCH ×2 (14:37→21:47)
[2016-10-27] MEDS: QUINAPRIL 5 MG TABLET PO SCH (19:29)
[2016-10-27] MEDS ORDERED: INSULIN GLARGINE 100 UNIT/ML SUBCUT SCH (21:00)
[2016-10-27] MEDS: clonazePAM 0.5 MG TABLET PO SCH (21:39)
[2016-10-27] MEDS: ZALEPLON 5 MG CAPSULE PO PRN (21:43)
[2016-10-28] MEDS: SODIUM CHLORIDE 0.45% 1,000 ML IV SCH (00:07)
[2016-10-28 05:18] LABS: Basophils % 0.1 % (0.0-0.8); Eosinophils % 0.1 % (0.00-10.9); Hematocrit 24.4 VOL% (35.7-47.0); Hemoglobin 7.6 GM/DL (12.0-16.0); Immature Granulocytes % 1.9 %; Immature Granulocytes Absolute 0.13 #; Lymphocytes # 1.4 10*3/uL (1.4-4.0); Lymphocytes % 20.3 % (21.3-54.2); Mean Corpuscular HGB Conc 31.1 GM/DL (32-36); Mean Corpuscular Hemoglobin 31 PG (27-34); Mean Corpuscular Volume 100.8 FL (87-102); Mean Platelet Volume 10.4 FL (9.6-12.0); Monocytes # 0.7 10*3/uL (0.11-0.8); Monocytes % 10.5 % (1.7-12.7); Neutrophils # 4.7 10*3/uL (1.4-7.4); Neutrophils % 67.1 % (38.7-73.9); Platelet Count 126 T/CUMM (130-400); Red Blood Count 2.42 MC/CUMM (3.8-5.5); Red Cell Distribution Width 14.8 % (9.3-17.3)
[2016-10-28 05:57] LABS: Calcium 8.6 MG/DL (8.5-10.1); Osmolality,Calculated 293.8 MOS/KG (273-304); Potassium 4.1 MMOL/L (3.5-5.1)
[2016-10-28] MEDS: ALBUTEROL 2.5 MG/3 ML NEB RESP TX SCH (07:04)
--- NOTE | 2016-10-28 08:38 | Progress Note ---
Assessment and Plan (1) Laceration of forehead, complicated Status: Acute Assessment and plan: Repaired in the OR please see surgical note for more information we will observe at least overnight or a day I will consult medicine for medical management 10/25/2016 postop day #1 Plan for discharge as soon as possibly tomorrow if medically cleared, behavioral health case manager consult, physical therapy consult to help ambulate, addition of Ambien as needed nightly, message to caregiver patient may blow her nose as needed, I have reviewed and agree with the hospitalists transfusion plans and treatment and I thank them for their help with this case. 10/26/2016 Unfortunately unless patient changes her mind we may need to watch the patient for another day additionally her symptoms may linger because of her refusal of blood products. Additionally with her history of a fall and bruising of the lower extremities and her same she is having difficulty ambulating I think it would be prudent while were waiting to obtain x-rays of her hips make sure that her left hip is not broken and there is no displacement of her right hip or the hardware. If the patient changes her mind and desires to go home today I would not be against this. 10/27/2016 I spoke with the behavioral health case manager and they will get her set up for swing bed and we will plan on her being discharged to swing bed tomorrow. Current Visit: Yes Qualifiers: Encounter type: initial encounter Qualified Code(s): S01.81XA - Laceration without foreign body of other part of head, initial encounter (2) Fall (on) (from) other stairs and steps, initial encounter Status: Acute Current Visit: Yes (3) Nasal bone fracture Status: Acute Current Visit: Yes Family Medicine PN Sub Interval history: The patient continues to not want to go home even with home health and she desires continued care we will look into trying to get her swing bed unit I called and spoke in depth with her daughter in regards to her case and her daughter is in understanding and desires swing bed care as well. Exam (Progress Note) - Constitutional Vitals: Period Temp Pulse Resp BP Sys/Arzola Pulse Ox Last 24 Hr 95.2 F-98.0 F 92-120 12-24 136-160/71-88 93-100 General appearance: normal weight, no acute distress - Head Head exam: Present: abrasion, contusion, hematoma, laceration (Healing well with decreasing ecchymosis) - Eye Eye exam: Present: EOMI Pupils: Present: KAREEM - ENT ENT exam: Present: normal exam, normal external ear exam, normal oropharynx - Neck Neck exam: Present: normal inspection - Respiratory Respiratory exam: Present: other (Occasional shortness of breath improved with breathing treatment) - Extremities Exam Extremities exam: Present: normal inspection (Ecchymosis throughout) - Neurological Exam Neurological exam: Present: alert, oriented X3, CN II-XII intact - Psychiatric Psychiatric exam: Present: normal affect (Her normal mood and affect for her daughter and her is anxiety), normal mood, agitated - Skin Skin exam: Present: normal color (Areas of ecchymosis secondary to the fall) Results - Labs CBC & BMP: 10/28/16 04:43 10/28/16 04:43 Lab Results: I have reviewed the past 24 hour labs (Slowly improving hemoglobin) - Diagnostic Findings Procedure: X-ray: pending, image reviewed by me, report reviewed by me (No hip pathology that is acute) Quality Measures - VTE Contraindication to Pharmacological VTE Prophylaxis: High Risk of Bleeding Specialty Discharge - Follow Up or Referrals Follow up with: Kuldip Quezada DO [Physician] -
--- NOTE | 2016-10-28 08:42 | Discharge Summary ---
Hospital Course - Hospital Course Hospital Course: Status post fall with complex forehead laceration and subsequent ecchymosis and bruising. The patient has been resistant to discharge because of her underlying fear of falling and her not feeling as though she is ready to go home yet. Her prolonged post operative. Has also been lengthened as some of her symptoms are probably due to her marked anemia but she refuses transfusion. She will be transferred to swing bed for continued care so that she may be able to return to home in the near future. - Time spent with patient Time with patient DS: Greater than 30 minutes Diagnosis - Discharge Diagnosis (1) Laceration of forehead, complicated Status: Acute (2) Fall (on) (from) other stairs and steps, initial encounter Status: Acute (3) Nasal bone fracture Status: Acute Specialty Discharge - Follow Up or Referrals Follow up with: Kuldip Quezada DO [Physician] - 2 Weeks Discharge Plan - Discharge Data Disposition: Swing Bed, [facility] Based, [facility] Condition at Discharge: Stable Discharge Diet: advance to your usual diet Activity: resume usual activities as tolerated Hygiene: may shower (place antiobiotic ointment on incision before and after shower) - Discharge Medications New Ibuprofen Tab [Motrin Tab] 600 mg PO Q4H PRN #0 tablet PRN Reason: Pain Ketorolac Inj [Toradol Inj] 15 mg IV Q6H PRN #0 vial PRN Reason: Pain Moderate (4-7) Mupirocin 2% Oint [Bactroban 2% Oint] 1 applic TOP TID applic Zaleplon [Sonata] 5 mg PO BEDTIME PRN #0 capsule PRN Reason: Sleep Continue Cetirizine HCl [ZyrTEC Cap] 10 mg PO DAILY Aspirin Chew Tab 81 mg PO DAILY Omeprazole [Prilosec] 20 mg PO DAILY Gabapentin Cap/Tab [Neurontin Cap/Tab] 300 mg PO TID clonazePAM TAB [KlonoPIN] 0.5 mg PO BEDTIME Lovastatin 10 mg PO DAILY Methocarbamol Tab [Robaxin Tab] 500 mg PO QID Solifenacin [Vesicare] 5 mg PO DAILY Quinapril [Accupril] 20 mg PO DAILY Denosumab [Prolia] 1 ml IM DIRECTED HYDROcodone/ACETAMIN 10-325 [[place] 10-325] 1 tablet PO TID PRN PRN Reason: Pain Albuterol Inhaler [Proventil Inhaler] 2 puff INH BID Docusate Sodium Cap [Colace Cap] 100 mg PO BID capsule Ferrous Sulfate Tab [Feosol Original Tab] 325 mg PO DAILY tablet Potassium Chloride Cap/Tab [K Dur] 20 meq PO BID #60 tablet Magnesium Oxide 800 mg PO BID #60 tablet NIFEdipine XL TAB [Procardia Xl] 30 mg PO BEDTIME #30 tablet Acetaminophen Tab [Tylenol Tab] 650 mg PO Q6H PRN #0 tablet PRN Reason: Fever > 100.4 Or Headache Valacyclovir HCl [Valacyclovir] 1,000 mg PO TID #21 tablet Menthol/Zinc Oxide Oint [Calmoseptine Oint] 1 applic TOP BID #71 gm Discontinued Clindamycin Cap [Cleocin Cap] 300 mg PO Q6HR #40 capsule - Follow Up or Referral Follow Up: Kuldip Quezada DO [Physician] - - Forms/Instructions Instructions: Nasal Fracture (DC), Laceration (DC) Exam - Constitutional Vitals: Period Temp Pulse Resp BP Sys/Arzola Pulse Ox Last 24 Hr 95.2 F-98.0 F 92-120 12-24 136-160/71-88 93-100 General appearance: normal weight, no acute distress - Head Head exam: Present: abrasion, contusion, hematoma, laceration (Healing well continue to keep moist with mupirocin for the next 2 weeks she has absorbable sutures in place and patent) - Eye Eye exam: Present: EOMI, periorbital swelling Pupils: Present: KAREEM - ENT ENT exam: Present: normal exam, normal external ear exam, normal oropharynx - Neck Neck exam: Present: normal inspection - Respiratory Respiratory exam: Present: other (Intermittent shortness of breath improved with breathing treatments) - Cardiovascular Cardiovascular exam: Present: regular rate and rhythm - GI/Abdominal GI/Abdominal exam: Present: soft (No gross organomegaly) - Extremities Exam Extremities exam: Present: normal inspection, other (Bilateral bruising secondary to fall pelvic x-ray reveals no hip fractures or acute pathology) - Back Exam Back exam: Present: normal inspection - Neurological Exam Neurological exam: Present: alert, oriented X3, CN II-XII intact - Psychiatric Psychiatric exam: Present: normal affect (Her daughter and her baseline mood has a high level of anxiety), normal mood, agitated - Skin Skin exam: Present: normal color, warm, other (Intermittent ecchymosis throughout consistent with history and fall.) Discharge Results Procedures and tests throughout hospitalization: Pending Orders 10/25/16 06:55 Red Blood Cells Leuko Red Routine Labs on day of discharge: Labs from last 24 hours 10/28/16 10/28/16 10/28/16 06:52 04:43 04:43 WBC 7.0 RBC 2.42 L Hgb 7.6 L Hct 24.4 L MCV 100.8 MCH 31 MCHC 31.1 L RDW 14.8 Plt Count 126 L MPV 10.4 Neut % (Auto) 67.1 Lymph % (Auto) 20.3 L Haines % (Auto) 10.5 Eos % (Auto) 0.1 Baso % (Auto) 0.1 Neut # (Auto) 4.7 Lymph # (Auto) 1.4 Haines # (Auto) 0.7 Eos # (Auto) 0.0 Baso # (Auto) 0.0 Immature Gran % 1.9 Nucleated RBC % 1.4 Immature Gran # 0.13 Nucleated RBCs # 0.10 Sodium 144 Potassium 4.1 Chloride 106 Carbon Dioxide 29 Anion Gap 13.1 BUN 23 H Creatinine 1.00 GFR Calculation 54 BUN/Creatinine Ratio 23.00 H Glucose 167 H POC Glucose 169 H Calculated Osmolality 293.8 Calcium 8.6 10/27/16 10/27/16 10/27/16 20:11 16:03 11:17 WBC RBC Hgb Hct MCV MCH MCHC RDW Plt Count MPV Neut % (Auto) Lymph % (Auto) Haines % (Auto) Eos % (Auto) Baso % (Auto) Neut # (Auto) Lymph # (Auto) Haines # (Auto) Eos # (Auto) Baso # (Auto) Immature Gran % Nucleated RBC % Immature Gran # Nucleated RBCs # Sodium Potassium Chloride Carbon Dioxide Anion Gap BUN Creatinine GFR Calculation BUN/Creatinine Ratio Glucose POC Glucose 168 H 150 H 235 H Calculated Osmolality Calcium - Imaging and Cardiology Procedure: CT: image reviewed by me, report reviewed by me, X-ray: report reviewed by me, image reviewed by me DS: Provider Date of admission: 10/24/16 19:37 Primary care physician: Padmini Bond M.D. Attending physician on admission: Kuldip Quezada DO Consults: 10/25/16 08:08 Consult to Case Mgmt/Social Srvs [CONS] Routine Reason for Case Mgmt/Social Srvs: Discharge Planning Home Health 10/25/16 08:09 Consult to Physical Therapy [CONS] Routine Reason for Physical Therapy: Ambulation Evaluate and Treat Discharging clinician: Kuldip Quezada DO Expected date of discharge: 10/28/16
[2016-10-28] MEDS: cefTRIAXone 1,000 MG in SODIUM CHLORIDE 0.9% 100 ML IV SCH (09:50)
[2016-10-28] MEDS: METHOCARBAMOL 500 MG TABLET PO SCH (10:37)
[2016-10-28] MEDS: LOVASTATIN 20 MG TABLET PO SCH (10:37)
[2016-10-28] MEDS: MAGNESIUM OXIDE 400 MG TABLET PO SCH (10:38)
[2016-10-28] MEDS: CETIRIZINE 10 MG TABLET PO SCH (10:38)
[2016-10-28] MEDS: POTASSIUM CHLORIDE 20 MEQ TABLET PO SCH (10:38)
[2016-10-28] MEDS: DOCUSATE SODIUM 100 MG CAPSULE PO SCH (10:38)
[2016-10-28] MEDS: GABAPENTIN 300 MG CAPSULE PO SCH (10:38)
[2016-10-28] MEDS: PANTOPRAZOLE 40 MG TABLET PO SCH (10:39)
[2016-10-28] MEDS: FERROUS SULFATE 325 MG TABLET PO SCH (10:39)
[2016-10-28] MEDS: SOLIFENACIN 5 MG TABLET PO SCH (10:39)
[2016-10-28] MEDS: valACYclovir 500 MG TABLET PO SCH (10:39)
[2016-10-28] MEDS: INSULIN REGULAR 100 UNIT/ML SUBCUT SCH ×2 (10:47→13:05)
[2016-10-28] MEDS: MUPIROCIN 2% OINT 22 GM TUBE TOP SCH (10:48)
[2016-10-28] MEDS: MENTHOL/ZINC OXIDE OINT 71 GM JAR TOP SCH (10:49)
[2016-10-28] MEDS: QUINAPRIL 5 MG TABLET PO SCH (10:49)
[2016-10-28 13:04] VITALS: BP 127/91
== END 2016-10-28 13:50 | disposition swing bed (61) | DRG 580 ==
LOC: EDUNIT# → EDBD → N.ED 15:14 → N.3E 17:38 → N.EDINP 19:37 → N.3E 20:12
PROVIDERS: ADMIT Otolaryngology; ATTEND Otolaryngology

== ENCOUNTER 2017-02-06 08:39 | Inpatient (IN) ==
[~2017-02-06 08:39] MED LIST: ALBUTEROL 2.5 MG/3 ML NEB RESP TX ONE; FAMOTIDINE 20 MG TABLET PO ONE; LACTATED RINGERS 1,000 ML IV SCH; LORazepam 1 MG TABLET PO ONE; SODIUM CHLORIDE 0.9% 100 ML IV ONE; VANCOMYCIN 1,000 MG VIAL ONE; VANCOMYCIN INJ 1,000 MG in SODIUM CHLORIDE 0.9% 250 ML IV ONE; ceFAZolin 1,000 MG VIAL ONE
[2017-02-06] MEDS ORDERED: FAMOTIDINE 20 MG TABLET ONE (08:56)
[2017-02-06] MEDS ORDERED: LORazepam 1 MG TABLET ONE (08:57)
[2017-02-06] MEDS ORDERED: TRANEXAMIC ACID 1,000 MG/10 ML VIAL IV ONE (09:03)
[2017-02-06] MEDS ORDERED: DIAZEPAM 5 MG TABLET PO ONE (09:17)
[2017-02-06] MEDS ORDERED: FAMOTIDINE 20 MG TABLET PO ONE (09:17)
[2017-02-06] MEDS ORDERED: BACITRACIN OINT 0.9 GM PACK TOP ONE (09:17)
[2017-02-06] MEDS ORDERED: LACTATED RINGERS 1,000 ML IV SCH (09:30)
[2017-02-06] MEDS ORDERED: LIDOCAINE 2% 5 ML VIAL ONE (10:04)
[2017-02-06] MEDS ORDERED: PHENYLEPHRINE 1 MG/10 ML SYRINGE IV ONE (10:04)
[2017-02-06] MEDS ORDERED: PROPOFOL 200 MG/20 ML VIAL IV ONE (10:04)
--- NOTE | 2017-02-06 10:07 | History and Physical Update ---
History and Physical Update - History and Physical H&P was reviewed, the patient examined and there: are no changes in the patients condition since last H&P was completed.
[2017-02-06] MEDS ORDERED: ALBUTEROL/IPRATROPIUM 3 ML NEB RESP TX PRN (10:13)
[2017-02-06] MEDS ORDERED: MORPHINE 2 MG/1 ML SYRINGE IV PRN (10:16)
[2017-02-06] MEDS ORDERED: MAGNESIUM HYDROXIDE SUSP 30 ML UDCUP PO PRN (10:16)
[2017-02-06] MEDS ORDERED: diphenhydrAMINE CAP 25 MG CAPSULE PO PRN (10:16)
[2017-02-06] MEDS ORDERED: ONDANSETRON 4 MG/2 ML VIAL IV PRN (10:16)
--- NOTE | 2017-02-06 10:24 | Operative Note ---
Procedure: DIAGNOSIS: Left hip primary osteoarthritis PROCEDURE: Left total hip arthroplasty (CPT#43963) SURGEON: Yovany ANESTHESIA: Spinal PROCEDURE and FINDINGS: After adequate anesthesia was induced, the patient was placed in lateral decubitus position. Left lower extremities prepped and draped in usual sterile fashion. Posteriolateral approach to the hip was made. Skin, subcutaneous tissue and deep fascia was incised longitudinally. Gluteus leroy muscle belly was split in line with its fibers. Piriformis, external rotators and capsule were taken down as a single layer as an inverted L shaped capsulotomy. Hip was dislocated. Templated femoral neck cut was made. Acetabulum was prepared by sequentially reaming to 51 mm. A 52 mm Continuum acetabular shell was press-fit with excellent stability. 2 6.5 millimeter screw was placed with an excellent bite. 32 mm neutral longevity liner was placed with a dome hole plug. Femur was prepared sequentially with the box osteotome, canal finder and sequential broaches to 17. Components were trialed. A size 17 Versys Advocate stem was cemented in place using Palacos cement and modern cementing techniques. A distal centralizer and cement restrictor were used. A 32-3.5 mm head was placed. The component was stable posteriorly and anteriorly. Capsule was repaired with #5 Tycron suture. During preparation of the proximal femur, the greater trochanter fracture. A # 5 Tycron [id number] suture through the tendon of the gluteus medius and origin of the vastus lateralis was used to support the fracture. Deep fascia was closed with 0 Vicryl vifthz-ur-wjdaw suture. Subcutaneous tissue was closed deep with a 2-0 Vicryl runner and superficially with 3-0 interrupted buried sutures. Skin was closed with leoncio. Bacitracin and a sterile occlusive dressing was applied. Surgeon / Physician: Eugenio Pedroza Jr. Discharge Plan - Discharge Medications No Action Cetirizine HCl [ZyrTEC Cap] 10 mg PO DAILY Aspirin Chew Tab 81 mg PO DAILY Omeprazole [Prilosec] 40 mg PO DAILY Gabapentin Cap/Tab [Neurontin Cap/Tab] 300 mg PO TID clonazePAM TAB [KlonoPIN] 0.5 mg PO BEDTIME Lovastatin 10 mg PO BEDTIME Denosumab [Prolia] 1 ml IM DIRECTED HYDROcodone/ACETAMIN 10-325 [[place] 10-325] 1 tablet PO QID Tolterodine LA [Detrol LA] 4 mg PO DAILY Garlic 1,000 mg PO DAILY Cyanocobalamin (Vitamin B-12) [Vitamin B-12] 1,000 mcg PO DAILY Cholecalciferol (Vitamin D3) [Vitamin D3] 1,000 unit PO BEDTIME Budesonide/Formoterol 160-4.5 [Symbicort 160-4.5] 2 puff INH BID Albuterol/Ipratropium Neb [Duoneb] 3 ml RESP TX RT BID PRN PRN Reason: Shortness Of Breath Magnesium Oxide 500 mg PO BID Albuterol Inhaler [Proventil Inhaler] 2 puff INH Q6H PRN PRN Reason: Shortness Of Breath/Wheezing amLODIPine [Norvasc] 5 mg PO DAILY - Follow Up or Referral - Forms/Instructions
[2017-02-06] MEDS ORDERED: ROPIVACAINE 0.5% 30 ML VIAL ONE (11:32)
[2017-02-06 12:02] LABS: Apearance,Urine CLEAR (Clear); Bilirubin,Urine Negative (Negative); Blood, Urine Negative (Negative); Glucose,Urine (UA) Negative (Negative); Ketones,Urine 5 mg/dL (Negative); Nitrite,Urine Negative (Negative); Protein,Urine Negative; Squamous Epithelial Cell,Urine Occasional /HPF (0-10); Urine Color Colorless (Yellow); Urine Specific Gravity 1.005 (1.001-1.035); Urine Urobilinogen < 2.0 EU/DL (0.2-1.0); WBC,Urine <1 /HPF (0-6)
[2017-02-06] MEDS ORDERED: SODIUM CHLORIDE 0.9% 250 ML IV ONE (12:56)
[2017-02-06] MEDS ORDERED: SODIUM CHLORIDE 0.9% 100 ML IV ONE (12:56)
[2017-02-06] MEDS ORDERED: LACTATED RINGERS 1,000 ML IV ONE (12:56)
[2017-02-06] MEDS ORDERED: ACETAMINOPHEN 1,000 MG/100 ML VIAL IV ONE (12:56)
[2017-02-06] MEDS ORDERED: MIDAZOLAM 2 MG/2 ML VIAL ONE (12:56)
--- NOTE | 2017-02-06 12:56 | Anesthesia Post-Op ---
Anesthesia Post OP - Post Ansesthetic Evaluation Patient seen in post op: Yes Resp: within normal limits CV: within normal limits Mental: within normal limits Temp: within normal limits Xuwz-[id number]-Gwinhyrxj: within normal limits Nausea and Vomiting: within normal limits Pain: within normal limits
[2017-02-06] MEDS: ALBUTEROL 2.5 MG/3 ML NEB RESP TX SCH ×2 (13:00→20:43)
--- NOTE | 2017-02-06 14:11 | Orthopedic Progress Note ---
Orthopedics - Subjective Interval history: comfortable. feels cold post op. nv ok. warm blankets, o/w continue per orders. Exam - Constitutional Vitals: Period Temp Pulse Resp BP Sys/Arzola Pulse Ox Last 24 Hr 97.2 F-98.3 F 66-82 16-20 106-163/56-88 94-100
--- NOTE | 2017-02-06 14:25 | XRay Report ---
XR hip OR RT Indication: Intraoperative BALDEMAR. Right hip one view: Comparison 01/07/2008 shows revision of the BALDEMAR with new acetabular and femoral components. Normal anatomic alignment. No periprosthetic fracture. Sponges, hemostat and a towel clamp are in the field of view. Impression: Uncomplicated revision of right BALDEMAR. Surgical instruments as described. PROCEDURE INTERPRETED AT [facility] DEPARTMENT OF RADIOLOGY Final Report Signed by: Aamir Thrasher M.D.
[2017-02-06] MEDS: KETOROLAC 15 MG/1 ML VIAL IV SCH ×3 (14:41→22:38)
--- NOTE | 2017-02-06 14:45 | EKG Report ---
Stationary ECG Study [facility] Test Date: 02/06/2017 2:45:12 PM Pat Name: RADHA BLEDSOE Department: Room: 321 Gender: F Steerer: : 1940 Requested by: Lalo Schmidt Order Number: [id number] Reading MD: THAD SAINI Intervals [place] Rate: 77 P: 81 PA: 156 QRS: 64 QRSD: 82 T: 78 QT: 368 QTc: 400 Interpretive Statements SINUS RHYTHM at 77 bpm PA WP Electronically Signed On 02-06-17 16:29:12 CDT by THAD SAINI [email or web address]
[2017-02-06] MEDS: oxyCODONE IR 5 MG TABLET PO PRN (14:54)
[2017-02-06] MEDS: GABAPENTIN 300 MG CAPSULE PO SCH ×2 (14:54→21:57)
[2017-02-06] MEDS: ACETAMINOPHEN 500 MG TABLET PO SCH ×2 (14:54→21:18)
--- NOTE | 2017-02-06 14:59 | XRay Report ---
XR hip 1V LT Clinical Information: Joint replacement (left hip) Comparison: Prior radiograph 10/26/2016 Findings: Postsurgical changes of left total hip arthroplasty are noted. Hardware appears intact. Overlying soft tissue gas and leoncio are noted. Impression: Postsurgical changes with no evidence of acute complication. PROCEDURE INTERPRETED AT [facility] DEPARTMENT OF RADIOLOGY Final Report Signed by: [place]
[2017-02-06 15:06] LABS: Basophils % 0.2 % (0.0-0.8); Eosinophils # 0.1 10*3/uL (0.0-0.87); Eosinophils % 1.6 % (0.00-10.9); Hemoglobin 9.7 GM/DL (12.0-16.0); Immature Granulocytes % 0.7 %; Immature Granulocytes Absolute 0.04 #; Lymphocytes # 1.3 10*3/uL (1.4-4.0); Lymphocytes % 20.9 % (21.3-54.2); Mean Corpuscular HGB Conc 33.4 GM/DL (32-36); Mean Corpuscular Hemoglobin 33 PG (27-34); Mean Platelet Volume 9.8 FL (9.6-12.0); Monocytes # 0.4 10*3/uL (0.11-0.8); Monocytes % 6.7 % (1.7-12.7); Neutrophils # 4.3 10*3/uL (1.4-7.4); Neutrophils % 69.9 % (38.7-73.9); Platelet Count 107 T/CUMM (130-400); Red Blood Count 2.96 MC/CUMM (3.8-5.5); Red Cell Distribution Width 15.6 % (9.3-17.3); White Blood Count 6.1 T/CUMM (4-12)
[2017-02-06 15:38] LABS: Calcium 7.8 MG/DL (8.5-10.1); Osmolality,Calculated 287.8 MOS/KG (273-304); Potassium 3.8 MMOL/L (3.5-5.1)
[2017-02-06] MEDS: MORPHINE 2 MG/1 ML SYRINGE IV PRN ×2 (16:07→17:22)
[2017-02-06] MEDS ORDERED: VANCOMYCIN INJ 1,000 MG in SODIUM CHLORIDE 0.9% 250 ML IV ONE (18:16)
--- NOTE | 2017-02-06 20:59 | Pulmonology Progress Note ---
Pulmonary - PN: Subj Interval history: This is a 76-year-old white female who had a left total hip surgery earlier today. Her main problems have been high blood pressure, hyper lipidemia, chronic pain, gastroesophageal reflux, asthma, Tonight the patient was talking on the phone when I went into her room. She appeared comfortable in no distress but was complaining about her pain. When I talked to her she complained about pain. I looked back at her recent pain medicine record and she has a lot of medicines. She seems to be in a little bit of autonomic pill taken mode. I am going to give her her Klonopin which she usually takes later on and I will repeated 1 if needed. I think if she can go to sleep she will probably do okay. Physical exam. Vital signs. See below Psychiatric. Alert and oriented. See above. Face. Symmetrical. No swelling of lips and tongue. Neck. No meningismus. Neuro. Cranial nerves are intact patient moves all 4 extremities. Chest. Clear Heart. No gallop Abdomen nondistended. Nontender. Hypoactive bowel sounds. Extremities. No edema and no evidence of deep venous thrombophlebitis. The remainder the physical exam is negative. Plan. 1. Watch for tendency to take too much pain medicine. 2. Begin Klonopin as above Exam (Progress Note) - Constitutional Vitals: Period Temp Pulse Resp BP Sys/Arzola Pulse Ox Last 24 Hr 97.2 F-98.9 F 66-83 16-20 106-163/56-88 94-100 Results - Labs CBC & BMP: 02/06/17 14:56 02/06/17 14:55
[2017-02-06] MEDS: LACTATED RINGERS 1,000 ML IV SCH (21:16)
[2017-02-06] MEDS: DOCUSATE SODIUM 100 MG CAPSULE PO SCH (21:17)
[2017-02-06] MEDS: MAGNESIUM OXIDE 400 MG TABLET PO SCH (21:17)
[2017-02-06] MEDS: LOVASTATIN 20 MG TABLET PO SCH (21:18)
[2017-02-06] MEDS: clonazePAM 0.5 MG TABLET PO SCH (21:18)
[2017-02-06] MEDS: CHOLECALCIFEROL 1,000 UNIT TABLET PO SCH (21:18)
[2017-02-06] MEDS: BUDESONIDE/FORMOTEROL 160-4.5 INHALER 6 GM INH SCH (21:57)
[2017-02-07] MEDS ORDERED: clonazePAM 0.5 MG TABLET PO PRN
[2017-02-07] MEDS: ACETAMINOPHEN 500 MG TABLET PO SCH ×2 (02:48→09:32)
[2017-02-07] MEDS: LACTATED RINGERS 1,000 ML IV SCH ×2 (02:48→14:57)
[2017-02-07] MEDS: ALBUTEROL 2.5 MG/3 ML NEB RESP TX SCH ×4 (02:59→20:00)
[2017-02-07] MEDS: KETOROLAC 15 MG/1 ML VIAL IV SCH (04:42)
[2017-02-07] MEDS: FONDAPARINUX 2.5 MG/0.5 ML SYRINGE SUBCUT SCH (04:42)
[2017-02-07 06:07] LABS: Basophils % 0.3 % (0.0-0.8); Eosinophils # 0.1 10*3/uL (0.0-0.87); Eosinophils % 3.1 % (0.00-10.9); Hematocrit 26.2 VOL% (35.7-47.0); Hemoglobin 8.5 GM/DL (12.0-16.0); Immature Granulocytes % 0.3 %; Immature Granulocytes Absolute 0.01 #; Lymphocytes % 25.7 % (21.3-54.2); Mean Corpuscular HGB Conc 32.4 GM/DL (32-36); Mean Corpuscular Hemoglobin 32 PG (27-34); Mean Corpuscular Volume 97.8 FL (87-102); Mean Platelet Volume 10.5 FL (9.6-12.0); Monocytes # 0.4 10*3/uL (0.11-0.8); Monocytes % 10.7 % (1.7-12.7); Neutrophils # 2.4 10*3/uL (1.4-7.4); Neutrophils % 59.9 % (38.7-73.9); Platelet Count 95 T/CUMM (130-400); Red Blood Count 2.68 MC/CUMM (3.8-5.5); Red Cell Distribution Width 15.7 % (9.3-17.3); White Blood Count 3.9 T/CUMM (4-12)
[2017-02-07 06:28] LABS: Calcium 7.3 MG/DL (8.5-10.1); Osmolality,Calculated 289.6 MOS/KG (273-304); Potassium 3.6 MMOL/L (3.5-5.1)
--- NOTE | 2017-02-07 07:31 | Orthopedic Progress Note ---
Orthopedics - Subjective Interval history: comfortable. nv ok. dressing dry. mobilize with therapy. Not sure whether she wants to go home or go to swing bed. Exam - Constitutional Vitals: Period Temp Pulse Resp BP Sys/Arzola Pulse Ox Last 24 Hr 97.2 F-98.9 F 66-85 16-20 106-163/55-88 92-100 Results - Labs CBC & BMP: 02/07/17 05:32 02/07/17 05:32
[2017-02-07 07:47] LABS: Band Neutrophils 1 % (0-10); Eosinophils 2 % (0-10); Hypochromasia 2+; Lymphocytes 25 % (20-55); Microcytosis 2+; Platelet Estimate Decreased; Segmented Neutrophils 67 % (50-85); Total Cells Counted 100
[2017-02-07] MEDS: amLODIPine 5 MG TABLET PO SCH (09:31)
[2017-02-07] MEDS: GABAPENTIN 300 MG CAPSULE PO SCH ×3 (09:32→21:07)
[2017-02-07] MEDS: oxyCODONE IR 5 MG TABLET PO PRN (09:33)
[2017-02-07] MEDS: DOCUSATE SODIUM 100 MG CAPSULE PO SCH ×2 (09:33→21:08)
[2017-02-07] MEDS: CYANOCOBALAMIN 500 MCG TABLET PO SCH (09:33)
[2017-02-07] MEDS: PANTOPRAZOLE 40 MG TABLET PO SCH (09:34)
[2017-02-07] MEDS: TOLTERODINE LA 4 MG CAPSULE PO SCH (09:34)
[2017-02-07] MEDS: CETIRIZINE 10 MG TABLET PO SCH (09:34)
[2017-02-07] MEDS: MAGNESIUM OXIDE 400 MG TABLET PO SCH ×2 (09:34→21:07)
[2017-02-07] MEDS: BUDESONIDE/FORMOTEROL 160-4.5 INHALER 6 GM INH SCH ×2 (09:52→21:59)
--- NOTE | 2017-02-07 10:17 | Pulmonology Progress Note ---
Pulmonary - PN: Subj Interval history: This is a 76-year-old white female who had a left total hip surgery earlier today. Her main problems have been high blood pressure, hyper lipidemia, chronic pain, gastroesophageal reflux, asthma, Tonight the patient was talking on the phone when I went into her room. She appeared comfortable in no distress but was complaining about her pain. When I talked to her she complained about pain. I looked back at her recent pain medicine record and she has a lot of medicines. She seems to be in a little bit of autonomic pill taken mode. I am going to give her her Klonopin which she usually takes later on and I will repeated 1 if needed. I think if she can go to sleep she will probably do okay. 02/07/2017. Hematocrit has dropped to 26.2. Patient complaints of pain says she cannot move. She complains of being cold. There is no recorded fever. White count is 3900 with 59.9 segs 25.1 lymphs and 10.1 monocytes. Electrolytes are normal. Creatinine is 0.6. BUN is 9. Glucoses are normal. Urinalysis done 02/06/2017 showed no evidence of infection. Patient is back on her home medicines. Physical exam. Vital signs. See below Psychiatric. Alert and oriented. See above. Face. Symmetrical. No swelling of lips and tongue. Neck. No meningismus. Neuro. Cranial nerves are intact patient moves all 4 extremities. Chest. Clear Heart. No gallop Abdomen nondistended. Nontender. Hypoactive bowel sounds. Extremities. No edema and no evidence of deep venous thrombophlebitis. The remainder the physical exam is negative. Plan. 02/06/2017 1. Watch for tendency to take too much pain medicine. 2. Begin Klonopin as above 02/07/2017. 1. See my note from today above. 2. CBC in the morning Exam (Progress Note) - Constitutional Vitals: Period Temp Pulse Resp BP Sys/Arzola Pulse Ox Last 24 Hr 97.2 F-98.9 F 66-85 16-20 106-156/55-87 92-100 Results - Labs CBC & BMP: 02/07/17 05:32 02/07/17 05:32
[2017-02-07] MEDS: MORPHINE 2 MG/1 ML SYRINGE IV PRN ×3 (11:10→16:06)
[2017-02-07] MEDS: CELECOXIB 200 MG CAPSULE PO SCH (16:05)
[2017-02-07] MEDS: LOVASTATIN 20 MG TABLET PO SCH (21:07)
[2017-02-07] MEDS: CHOLECALCIFEROL 1,000 UNIT TABLET PO SCH (21:08)
[2017-02-07] MEDS: clonazePAM 0.5 MG TABLET PO SCH (21:08)
[2017-02-08] MEDS: ALBUTEROL 2.5 MG/3 ML NEB RESP TX SCH ×4 (00:17→19:01)
[2017-02-08] MEDS: FONDAPARINUX 2.5 MG/0.5 ML SYRINGE SUBCUT SCH (04:04)
[2017-02-08 06:11] LABS: Basophils % 0.2 % (0.0-0.8); Eosinophils # 0.1 10*3/uL (0.0-0.87); Eosinophils % 2.4 % (0.00-10.9); Hemoglobin 9.2 GM/DL (12.0-16.0); Immature Granulocytes % 0.6 %; Immature Granulocytes Absolute 0.03 #; Lymphocytes % 19.4 % (21.3-54.2); Mean Corpuscular HGB Conc 32.9 GM/DL (32-36); Mean Corpuscular Hemoglobin 32 PG (27-34); Mean Corpuscular Volume 96.2 FL (87-102); Mean Platelet Volume 10.5 FL (9.6-12.0); Monocytes # 0.6 10*3/uL (0.11-0.8); Monocytes % 11.9 % (1.7-12.7); Neutrophils # 3.3 10*3/uL (1.4-7.4); Neutrophils % 65.5 % (38.7-73.9); Platelet Count 99 T/CUMM (130-400); Red Blood Count 2.91 MC/CUMM (3.8-5.5); Red Cell Distribution Width 15.6 % (9.3-17.3); White Blood Count 5.1 T/CUMM (4-12)
[2017-02-08] MEDS: oxyCODONE IR 5 MG TABLET PO PRN ×2 (06:33→22:27)
[2017-02-08 06:41] LABS: Band Neutrophils 1 % (0-10); Eosinophils 1 % (0-10); Hypochromasia 1+; Lymphocytes 23 % (20-55); Segmented Neutrophils 68 % (50-85); Total Cells Counted 100
[2017-02-08 06:42] LABS: Microcytosis 1+; Platelet Estimate Decreased
--- NOTE | 2017-02-08 07:39 | Orthopedic Progress Note ---
Orthopedics - Subjective Interval history: Lynda Neri is progressing slowly with physical therapy. She did not get up to a chair yesterday. Her dressing shows slight serosanguineous drainage. Her left lower extremities neurovascularly intact. Plan: Anticipate swing bed placement. Encouraged mobilization. Exam - Constitutional Vitals: Period Temp Pulse Resp BP Sys/Arzola Pulse Ox Last 24 Hr 97.5 F-99.9 F 77-99 16-20 120-144/57-95 91-99 Results - Labs CBC & BMP: 02/08/17 05:45 02/07/17 05:32
[2017-02-08] MEDS: TOLTERODINE LA 4 MG CAPSULE PO SCH (08:56)
[2017-02-08] MEDS: CELECOXIB 200 MG CAPSULE PO SCH (08:56)
[2017-02-08] MEDS: DOCUSATE SODIUM 100 MG CAPSULE PO SCH ×2 (08:56→20:15)
[2017-02-08] MEDS: MAGNESIUM OXIDE 400 MG TABLET PO SCH ×2 (08:56→20:16)
[2017-02-08] MEDS: GABAPENTIN 300 MG CAPSULE PO SCH ×3 (08:57→20:16)
[2017-02-08] MEDS: CYANOCOBALAMIN 500 MCG TABLET PO SCH (08:57)
[2017-02-08] MEDS: PANTOPRAZOLE 40 MG TABLET PO SCH (08:57)
[2017-02-08] MEDS: CETIRIZINE 10 MG TABLET PO SCH (08:58)
[2017-02-08] MEDS: BUDESONIDE/FORMOTEROL 160-4.5 INHALER 6 GM INH SCH ×2 (08:58→20:21)
[2017-02-08] MEDS: amLODIPine 5 MG TABLET PO SCH (08:58)
--- NOTE | 2017-02-08 10:58 | Pulmonology Progress Note ---
Pulmonary - PN: Subj Interval history: This is a 76-year-old white female who had a left total hip surgery earlier today. Her main problems have been high blood pressure, hyper lipidemia, chronic pain, gastroesophageal reflux, asthma, Tonight the patient was talking on the phone when I went into her room. She appeared comfortable in no distress but was complaining about her pain. When I talked to her she complained about pain. I looked back at her recent pain medicine record and she has a lot of medicines. She seems to be in a little bit of autonomic pill taken mode. I am going to give her her Klonopin which she usually takes later on and I will repeated 1 if needed. I think if she can go to sleep she will probably do okay. 02/07/2017. Hematocrit has dropped to 26.2. Patient complaints of pain says she cannot move. She complains of being cold. There is no recorded fever. White count is 3900 with 59.9 segs 25.1 lymphs and 10.1 monocytes. Electrolytes are normal. Creatinine is 0.6. BUN is 9. Glucoses are normal. Urinalysis done 02/06/2017 showed no evidence of infection. Patient is back on her home medicines. 02/08/2017. H&H is stable at 9.2/28.0. This patient is remarkably better today. She is sitting up in a chair participating with therapy. She no longer complains that she is in severe pain and she no longer complains that her legs will not move. She has no positive cultures. White blood cell count is 5165.5 segs 19.4 lymphs and 12 monos. Platelets are 99,000. Previous electrolytes have been normal. Today it appeared to be no new problems and there are no complaints. Physical exam. Vital signs. See below Psychiatric. Alert and oriented. See above. Face. Symmetrical. No swelling of lips and tongue. Neck. No meningismus. Neuro. Cranial nerves are intact patient moves all 4 extremities. Chest. Clear Heart. No gallop Abdomen nondistended. Nontender. Hypoactive bowel sounds. Extremities. No edema and no evidence of deep venous thrombophlebitis. The remainder the physical exam is negative. Plan. 02/06/2017 1. Watch for tendency to take too much pain medicine. 2. Begin Klonopin as above 02/07/2017. 1. See my note from today above. 2. CBC in the morning 02/08/2017. 1. See today's note above 2. Blood count normal Exam (Progress Note) - Constitutional Vitals: Period Temp Pulse Resp BP Sys/Arzola Pulse Ox Last 24 Hr 97.5 F-99.9 F 48-99 16-20 120-144/57-95 91-99 Results - Labs CBC & BMP: 02/08/17 05:45 02/07/17 05:32
--- NOTE | 2017-02-08 13:16 | Pathology Report from [facility] ---
[facility] [place] ACCESSION # : [id number] PATIENT NAME : Lynda Neri ORDERING DR : JANET VIRAMONTES MD CLINICAL HX: Left hip osteoarthritis POST-OP DX: Same SPECIMEN INFO: Left femoral head GROSS DESCRIPTION: The specimen is received in formalin labeled with the patients name and consists of a markedly degenerative femoral head measuring 4.5 x 4.8 x 2.8 cm with large areas of subchondral eburnation seen. Cut surfaces are smooth with some softening appreciated. Received separately in the container is a portion of femoral neck measuring 3.2 x 2.0 cm. [place] sections submitted in one cassette following decalcification. DIAGNOSIS FOR LYNDA NERI: LEFT FEMORAL HEAD: Gross and microscopic findings consistent with osteoarthritis. COLLECTED DATE: 02/06/2017 [facility] [place] REPORT DATE: 02/07/2017 ELECTRONICALLY SIGNED BY: Caitlin Mayo III, M.D. 02/07/2017 - 9:32:44 MTDD
[2017-02-08] MEDS: CHOLECALCIFEROL 1,000 UNIT TABLET PO SCH (20:15)
[2017-02-08] MEDS: LOVASTATIN 20 MG TABLET PO SCH (20:17)
[2017-02-08] MEDS: clonazePAM 0.5 MG TABLET PO SCH (20:17)
[2017-02-09] MEDS: ALBUTEROL 2.5 MG/3 ML NEB RESP TX SCH ×2 (00:43→07:45)
[2017-02-09] MEDS: FONDAPARINUX 2.5 MG/0.5 ML SYRINGE SUBCUT SCH (03:54)
[2017-02-09 05:00] LABS: Basophils % 0.4 % (0.0-0.8); Eosinophils # 0.4 10*3/uL (0.0-0.87); Eosinophils % 7.2 % (0.00-10.9); Hematocrit 27.3 VOL% (35.7-47.0); Hemoglobin 8.8 GM/DL (12.0-16.0); Immature Granulocytes % 0.7 %; Immature Granulocytes Absolute 0.04 #; Lymphocytes # 1.2 10*3/uL (1.4-4.0); Lymphocytes % 21.9 % (21.3-54.2); Mean Corpuscular HGB Conc 32.2 GM/DL (32-36); Mean Corpuscular Hemoglobin 32 PG (27-34); Mean Corpuscular Volume 100.4 FL (87-102); Mean Platelet Volume 10.6 FL (9.6-12.0); Monocytes # 0.5 10*3/uL (0.11-0.8); Monocytes % 8.8 % (1.7-12.7); Neutrophils # 3.5 10*3/uL (1.4-7.4); Platelet Count 112 T/CUMM (130-400); Red Blood Count 2.72 MC/CUMM (3.8-5.5); Red Cell Distribution Width 15.9 % (9.3-17.3); White Blood Count 5.7 T/CUMM (4-12)
--- NOTE | 2017-02-09 06:34 | Discharge Summary ---
Hospital Course - Hospital Course Hospital Course: Lynda Neri was admitted after undergoing a left total hip arthroplasty. She received perioperative DVT and antimicrobial prophylaxis. She received physical therapy. She was very slow to progress and was deemed that she would benefit from swing bed placement. Discharge Plan - Discharge Data Disposition: Disch/Xfer to Snf Condition at Discharge: Stable Discharge Diet: advance to your usual diet Hygiene: may shower Weight Bearing at Discharge: weight bear as tolerated - Discharge Medications New Fondaparinux [Arixtra] 2.5 mg SUBCUT Q24H syringe Docusate Sodium Cap [Colace Cap] 100 mg PO BID capsule Continue Cetirizine HCl [ZyrTEC Cap] 10 mg PO DAILY Omeprazole [Prilosec] 40 mg PO DAILY Gabapentin Cap/Tab [Neurontin Cap/Tab] 300 mg PO TID clonazePAM TAB [KlonoPIN] 0.5 mg PO BEDTIME Lovastatin 10 mg PO BEDTIME Denosumab [Prolia] 1 ml IM Q6M HYDROcodone/ACETAMIN 10-325 [[place] 10-325] 1 tablet PO QID Tolterodine LA [Detrol LA] 4 mg PO DAILY Garlic 1,000 mg PO DAILY Cyanocobalamin (Vitamin B-12) [Vitamin B-12] 1,000 mcg PO DAILY Cholecalciferol (Vitamin D3) [Vitamin D3] 1,000 unit PO BEDTIME Budesonide/Formoterol 160-4.5 [Symbicort 160-4.5] 2 puff INH BID Albuterol/Ipratropium Neb [Duoneb] 3 ml RESP TX RT BID PRN PRN Reason: Shortness Of Breath Magnesium Oxide 500 mg PO BID Albuterol Inhaler [Proventil Inhaler] 2 puff INH Q6H PRN PRN Reason: Shortness Of Breath/Wheezing amLODIPine [Norvasc] 5 mg PO DAILY Discontinued Aspirin Chew Tab 81 mg PO DAILY - Follow Up or Referral - Forms/Instructions Additional Discharge Instructions: Posterior hip precautions for 3 months. Daily dry dressing changes. Arrange for walker and bedside commode for home use. Wear JESSICA hose for 1 month. Follow-up appointment in 4 weeks. Discontinue leoncio and Steri-Strip wound on February 18, 2017. Prescription for [place] 10 with 30 tablets was written. Stop Arixtra and Celebrex when discharged from swing bed. Restart baby aspirin then. Exam - Constitutional Vitals: Period Temp Pulse Resp BP Sys/Arzola Pulse Ox Last 24 Hr 97.5 F-99.2 F 48-98 16-20 95-138/50-95 20-98 Discharge Results Labs on day of discharge: Labs from last 24 hours 02/09/17 02/08/17 04:13 05:45 WBC 5.7 RBC 2.72 L Hgb 8.8 L Hct 27.3 L MCV 100.4 MCH 32 MCHC 32.2 RDW 15.9 Plt Count 112 L MPV 10.6 Neut % (Auto) 61.0 Lymph % (Auto) 21.9 [place] % (Auto) 8.8 Eos % (Auto) 7.2 Baso % (Auto) 0.4 Neut # (Auto) 3.5 Lymph # (Auto) 1.2 L [place] # (Auto) 0.5 Eos # (Auto) 0.4 Baso # (Auto) 0.0 Total Counted 100 Immature Gran % 0.7 Nucleated RBC % 0.0 Immature Gran # 0.04 Segmented Neutrophils 68 Band Neutrophils 1 Lymphocytes 23 Monocytes 7 Eosinophils 1 Nucleated RBCs # 0.00 Platelet Estimate Decreased Hypochromasia 1+ Microcytosis 1+ DS: Provider Date of admission: 02/06/17 08:39 Primary care physician: Padmini Bond M.D. Attending physician on admission: Eugenio Pedroza Jr., Consults: 02/06/17 10:16 Consult to Case Mgmt/Social Srvs [CONS] Routine Reason for Case Mgmt/Social Srvs: Rehab Home Health Equipment Consult Comment: Bedside Commode, CPM, Walker Consult to Occupational Therapy [CONS] Routine Reason for Occupational Therapy: Evaluate and Treat Consult Comment: ADL's Consult to Physical Therapy [CONS] Routine Reason for Physical Therapy: Evaluate and Treat Gait Training Start Therapy: Today Consult Comment: wbat, hip precautions 02/06/17 14:08 Consult to Pastoral Services [CONS] Routine Comment: Pastoral Screen: Request Nut Sheller Visit Pastoral Screen Source of Request: Family Consult to Physician [CONS] Routine Comment: Consulting Provider: Brice Mckeon Consulting Provider Notified: Yes When should Consulting Provider be notified: Now Person Notified: kenroy hurley Date Notified: 02/06/17 Time Notified: 14:09 Discharging clinician: Eugenio Pedroza Jr., Expected date of discharge: 02/09/17
[2017-02-09 07:41] VITALS: BP 129/78
[2017-02-09] MEDS: CYANOCOBALAMIN 500 MCG TABLET PO SCH (09:51)
[2017-02-09] MEDS: MAGNESIUM OXIDE 400 MG TABLET PO SCH (09:51)
[2017-02-09] MEDS: GABAPENTIN 300 MG CAPSULE PO SCH (09:51)
[2017-02-09] MEDS: CETIRIZINE 10 MG TABLET PO SCH (09:51)
[2017-02-09] MEDS: DOCUSATE SODIUM 100 MG CAPSULE PO SCH (09:51)
[2017-02-09] MEDS: CELECOXIB 200 MG CAPSULE PO SCH (09:52)
[2017-02-09] MEDS: amLODIPine 5 MG TABLET PO SCH (09:52)
[2017-02-09] MEDS: BUDESONIDE/FORMOTEROL 160-4.5 INHALER 6 GM INH SCH (09:52)
[2017-02-09] MEDS: TOLTERODINE LA 4 MG CAPSULE PO SCH (09:52)
[2017-02-09] MEDS: PANTOPRAZOLE 40 MG TABLET PO SCH (09:52)
--- NOTE | 2017-02-09 11:18 | Pulmonology Progress Note ---
Pulmonary - PN: Subj Interval history: Clementelucie Santiago, AGPCNP-, acting as scribe for Dr. Brice Mckeon This is a 76-year-old white female who had a left total hip surgery on 02/06/17. Her main problems have been high blood pressure, hyper lipidemia, chronic pain, gastroesophageal reflux, asthma, The evening of 02/06/17 the patient was talking on the phone when we went into her room. She appeared comfortable in no distress but was complaining about her pain. When we talked to her she complained about pain. We looked back at her recent pain medicine record and she has a lot of medicines. She seemed to be in a little bit of autonomic pill taken mode. I am going to give her her Klonopin which she usually takes later on and I will repeated 1 if needed. I think if she can go to sleep she will probably do okay. 02/07/2017. Hematocrit has dropped to 26.2. Patient complaints of pain says she cannot move. She complains of being cold. There is no recorded fever. White count is 3900 with 59.9 segs 25.1 lymphs and 10.1 monocytes. Electrolytes are normal. Creatinine is 0.6. BUN is 9. Glucoses are normal. Urinalysis done 02/06/2017 showed no evidence of infection. Patient is back on her home medicines. 02/08/2017. H&H is stable at 9.2/28.0. This patient is remarkably better today. She is sitting up in a chair participating with therapy. She no longer complains that she is in severe pain and she no longer complains that her legs will not move. She has no positive cultures. White blood cell count is 5165.5 segs 19.4 lymphs and 12 monos. Platelets are 99,000. Previous electrolytes have been normal. Today it appeared to be no new problems and there are no complaints. 02/09/2017. The patient's labs have remained stable. She is for transfer to swing bed later on today. She will continue with physical therapy and other therapies as indicated. There are no new problems and no complaints. Medications have been reviewed. We made no changes. Labs been reviewed. White count is 5700 with a normal differential; H&H 8.8/ 27.3; platelet count 112,000 Exam (Progress Note) - Constitutional Vitals: Period Temp Pulse Resp BP Sys/Arzola Pulse Ox Last 24 Hr 97.4 F-99.2 F 68-97 16-20 95-138/50-78 20-98 Exam: Chest is clear Heart no gallop Abdomen is nontender nondistended; bowel sounds positive [address] Pedroza; nothing to suggest acute deep venous thrombophlebitis Psychiatric oriented 3 Neurologic long-term motor function is intact Plan: Your plans for discharge are noted. We will sign off. Please reconsult as needed. Results - Labs CBC & BMP: 02/09/17 04:13 02/07/17 05:32 Specialty Discharge - Follow Up or Referrals Follow up with: Eugenio Pedroza Jr., MD [Physician] - 03/09/17 9:00 am
== END 2017-02-09 11:21 | disposition swing bed (61) | DRG 470 ==
LOC: N.SDSINP 08:39 → N.3E 13:42
PROVIDERS: ADMIT Orthopaedic Surgery; ATTEND Orthopaedic Surgery

== ENCOUNTER 2018-03-29 15:32 | Inpatient (IN) ==
[2018-03-29 16:22] LABS: Basophils % 0.3 % (0.0-0.8); Eosinophils # 0.3 10*3/uL (0.0-0.87); Eosinophils % 3.4 % (0.00-10.9); Hematocrit 35.8 VOL% (35.7-47.0); Hemoglobin 11.8 GM/DL (12.0-16.0); Immature Granulocytes % 0.4 %; Immature Granulocytes Absolute 0.03 #; Lymphocytes # 1.8 10*3/uL (1.4-4.0); Lymphocytes % 24.7 % (21.3-54.2); Mean Corpuscular Hemoglobin 33 PG (27-34); Mean Corpuscular Volume 100.6 FL (87-102); Mean Platelet Volume 10.2 FL (9.6-12.0); Monocytes # 0.8 10*3/uL (0.11-0.8); Monocytes % 10.7 % (1.7-12.7); Neutrophils # 4.5 10*3/uL (1.4-7.4); Neutrophils % 60.5 % (38.7-73.9); Platelet Count 154 T/CUMM (130-400); Red Blood Count 3.56 MC/CUMM (3.8-5.5); Red Cell Distribution Width 14.4 % (9.3-17.3); White Blood Count 7.5 T/CUMM (4-12)
[2018-03-29 16:26] LABS: Apearance,Urine CLEAR (Clear); Bacteria,Urine Occasional /HPF (Few); Bilirubin,Urine Negative (Negative); Blood, Urine Negative (Negative); Glucose,Urine (UA) Negative (Negative); Hyaline Casts,Urine 1 /LPF (0-3); Ketones,Urine Negative (Negative); Nitrite,Urine Negative (Negative); Protein,Urine Negative; RBC,Urine <1 /HPF (0-4); Squamous Epithelial Cell,Urine Occasional /HPF (0-10); Urine Color Yellow (Yellow); Urine Specific Gravity 1.008 (1.001-1.035); Urine Urobilinogen < 2.0 EU/DL (0.2-1.0); WBC,Urine 1 /HPF (0-6)
[2018-03-29 17:00] LABS: Albumin 3.8 G/DL (3.4-5.0); Bilirubin,Total 0.8 MG/DL (0.2-1.0); Calcium 9.7 MG/DL (8.5-10.1); Osmolality,Calculated 293.1 MOS/KG (273-304); Potassium 2.7 MMOL/L (3.5-5.1); Total Protein 7.6 G/DL (6.4-8.3)
[2018-03-29] MEDS ORDERED: ASPIRIN 325 MG TABLET PO STA (18:29)
[2018-03-29] MEDS ORDERED: NITROGLYCERIN 2% OINT 1 INCH/GM PACK TOP STA (18:29)
[2018-03-29] MEDS ORDERED: ONDANSETRON 4 MG/2 ML VIAL IV STA (18:34)
[2018-03-29] MEDS ORDERED: NITROGLYCERIN 2% OINT 1 INCH/GM PACK TOP ONE (18:42)
[2018-03-29] MEDS ORDERED: ASPIRIN 325 MG TABLET ONE (18:42)
[2018-03-29] MEDS ORDERED: ONDANSETRON 4 MG/2 ML VIAL ONE (18:42)
[2018-03-29] MEDS ORDERED: hydrOXYzine HCL 25 MG TABLET PO PRN (19:07)
[2018-03-29] MEDS ORDERED: ALBUTEROL/IPRATROPIUM 3 ML NEB RESP TX PRN (19:08)
[2018-03-29] MEDS ORDERED: ENOXAPARIN 80 MG/0.8 ML SYRINGE SUBCUT ONE ×2 (19:57)
[2018-03-29] MEDS: ENOXAPARIN 80 MG/0.8 ML SYRINGE SUBCUT SCH (20:19)
[2018-03-29] MEDS: POTASSIUM CHLORIDE 20 MEQ TABLET PO SCH ×2 (20:20→22:45)
[2018-03-29] MEDS: busPIRone 5 MG TABLET PO SCH (22:24)
[2018-03-29] MEDS: MAGNESIUM OXIDE 400 MG TABLET PO SCH (22:25)
[2018-03-29] MEDS: ROSUVASTATIN 20 MG TABLET PO SCH (22:25)
[2018-03-29] MEDS: PANTOPRAZOLE 40 MG TABLET PO SCH (22:25)
[2018-03-29] MEDS: rOPINIRole 1 MG TABLET PO SCH (22:25)
[2018-03-29] MEDS: GABAPENTIN 300 MG CAPSULE PO SCH (22:26)
[2018-03-29] MEDS: CARVEDILOL 3.125 MG TABLET PO SCH (22:26)
[2018-03-29] MEDS: SODIUM CHLORIDE 0.45% 1,000 ML IV SCH (22:30)
[2018-03-30] MEDS: ALBUTEROL/IPRATROPIUM 3 ML NEB RESP TX SCH ×4 (00:01→19:55)
[2018-03-30] MEDS: NITROGLYCERIN 2% OINT 1 INCH/GM PACK TOP SCH ×4 (01:41→17:29)
[2018-03-30] MEDS: SODIUM CHLORIDE 0.45% 1,000 ML IV SCH ×2 (05:04→11:40)
[2018-03-30] MEDS: POTASSIUM CHLORIDE 20 MEQ TABLET PO SCH ×2 (05:04→09:47)
[2018-03-30 06:18] LABS: Basophils % 0.3 % (0.0-0.8); Eosinophils # 0.3 10*3/uL (0.0-0.87); Eosinophils % 5.4 % (0.00-10.9); Hematocrit 32.7 VOL% (35.7-47.0); Hemoglobin 10.9 GM/DL (12.0-16.0); Immature Granulocytes % 0.3 %; Immature Granulocytes Absolute 0.02 #; Lymphocytes % 32.3 % (21.3-54.2); Mean Corpuscular HGB Conc 33.3 GM/DL (32-36); Mean Corpuscular Hemoglobin 34 PG (27-34); Mean Corpuscular Volume 100.9 FL (87-102); Mean Platelet Volume 9.7 FL (9.6-12.0); Monocytes # 0.6 10*3/uL (0.11-0.8); Monocytes % 10.2 % (1.7-12.7); Neutrophils # 3.1 10*3/uL (1.4-7.4); Neutrophils % 51.5 % (38.7-73.9); Platelet Count 133 T/CUMM (130-400); Red Blood Count 3.24 MC/CUMM (3.8-5.5); Red Cell Distribution Width 14.5 % (9.3-17.3); White Blood Count 6.1 T/CUMM (4-12)
[2018-03-30 06:58] LABS: Blood Urea Nitrogen 65 MG/DL (7-18); Calcium 9.6 MG/DL (8.5-10.1); Cholesterol 196 MG/DL (50-200); Glucose 124 MG/DL (74-106); HDL Cholesterol 57 MG/DL (40-60); Osmolality,Calculated 289.1 MOS/KG (273-304); Potassium 3.6 MMOL/L (3.5-5.1); Risk Ratio 3.44; Sodium 135 MMOL/L (136-145); Triglycerides 164 MG/DL (2-150); VLDL CHOLESTEROL 32.8 MG/DL
[2018-03-30] MEDS: BUDESONIDE 0.5 MG/2 ML NEB RESP TX SCH (07:32)
[2018-03-30] MEDS ORDERED: GARLIC PO SCH (09:00)
[2018-03-30] MEDS ORDERED: Umeclidinium Brm/Vilanterol Tr [Anoro Ellipta] INH SCH (09:00)
[2018-03-30] MEDS: TOLTERODINE LA 4 MG CAPSULE PO SCH (09:46)
[2018-03-30] MEDS: busPIRone 5 MG TABLET PO SCH ×2 (09:46→20:31)
[2018-03-30] MEDS: PANTOPRAZOLE 40 MG TABLET PO SCH ×2 (09:46→20:31)
[2018-03-30] MEDS: ENOXAPARIN 80 MG/0.8 ML SYRINGE SUBCUT SCH ×2 (09:47→20:31)
[2018-03-30] MEDS: GABAPENTIN 300 MG CAPSULE PO SCH ×3 (09:47→20:31)
[2018-03-30] MEDS: ASPIRIN EC 81 MG TABLET PO SCH (09:47)
[2018-03-30] MEDS: CARVEDILOL 3.125 MG TABLET PO SCH ×2 (09:47→17:29)
[2018-03-30] MEDS: ONDANSETRON 4 MG/2 ML VIAL IV PRN (17:33)
[2018-03-30 18:36] LABS: Folate > 24.0 NG/ML (5.4-24.0); Vitamin B12 > 2000 PG/ML (211-911)
[2018-03-30] MEDS: MAGNESIUM OXIDE 400 MG TABLET PO SCH (20:31)
[2018-03-30] MEDS: ROSUVASTATIN 20 MG TABLET PO SCH (20:31)
[2018-03-30] MEDS: rOPINIRole 1 MG TABLET PO SCH (20:31)
[2018-03-31] MEDS: NITROGLYCERIN 2% OINT 1 INCH/GM PACK TOP SCH ×3 (00:29→11:11)
[2018-03-31] MEDS: ALBUTEROL/IPRATROPIUM 3 ML NEB RESP TX SCH ×4 (00:36→19:31)
[2018-03-31] MEDS: SODIUM CHLORIDE 0.45% 1,000 ML IV SCH ×3 (04:20→13:53)
[2018-03-31 05:31] LABS: Basophils % 0.4 % (0.0-0.8); Eosinophils # 0.3 10*3/uL (0.0-0.87); Eosinophils % 5.4 % (0.00-10.9); Hematocrit 30.8 VOL% (35.7-47.0); Immature Granulocytes % 0.7 %; Immature Granulocytes Absolute 0.04 #; Lymphocytes # 1.4 10*3/uL (1.4-4.0); Lymphocytes % 25.4 % (21.3-54.2); Mean Corpuscular HGB Conc 32.5 GM/DL (32-36); Mean Corpuscular Hemoglobin 33 PG (27-34); Mean Platelet Volume 10.2 FL (9.6-12.0); Monocytes # 0.6 10*3/uL (0.11-0.8); Monocytes % 10.6 % (1.7-12.7); Neutrophils # 3.2 10*3/uL (1.4-7.4); Neutrophils % 57.5 % (38.7-73.9); Platelet Count 123 T/CUMM (130-400); Red Blood Count 2.99 MC/CUMM (3.8-5.5); Red Cell Distribution Width 14.5 % (9.3-17.3); White Blood Count 5.6 T/CUMM (4-12)
[2018-03-31 05:35] LABS: Calcium 8.8 MG/DL (8.5-10.1); Osmolality,Calculated 291.4 MOS/KG (273-304); Potassium 2.7 MMOL/L (3.5-5.1)
[2018-03-31] MEDS ORDERED: BISACODYL 10 MG SUPP RECTAL PRN (07:50)
[2018-03-31] MEDS: BUDESONIDE 0.5 MG/2 ML NEB RESP TX SCH (07:52)
[2018-03-31] MEDS ORDERED: POTASSIUM CHLORIDE 20 MEQ TABLET PO ONE (08:33)
[2018-03-31] MEDS: ENOXAPARIN 80 MG/0.8 ML SYRINGE SUBCUT SCH ×2 (08:53→21:44)
[2018-03-31] MEDS: ASPIRIN EC 81 MG TABLET PO SCH (08:54)
[2018-03-31] MEDS: TOLTERODINE LA 4 MG CAPSULE PO SCH (08:54)
[2018-03-31] MEDS: GABAPENTIN 300 MG CAPSULE PO SCH ×3 (08:54→21:45)
[2018-03-31] MEDS: CARVEDILOL 3.125 MG TABLET PO SCH ×2 (08:54→16:21)
[2018-03-31] MEDS: busPIRone 5 MG TABLET PO SCH ×2 (08:54→21:44)
[2018-03-31] MEDS: PANTOPRAZOLE 40 MG TABLET PO SCH ×2 (08:56→21:45)
[2018-03-31] MEDS ORDERED: SODIUM PHOSPHATE ENEMA 133 ML BOTTLE RECTAL ONE (10:18)
[2018-03-31] MEDS: LACTATED RINGERS 1,000 ML IV SCH ×2 (13:32→23:39)
[2018-03-31] MEDS: SENNA 8.6 MG TABLET PO SCH ×2 (13:36→21:45)
[2018-03-31] MEDS: DOCUSATE SODIUM 100 MG CAPSULE PO SCH ×2 (13:36→21:44)
[2018-03-31] MEDS ORDERED: traMADol 50 MG TABLET PO SCH (18:38)
[2018-03-31] MEDS: ACETAMINOPHEN 325 MG TABLET PO SCH (21:44)
[2018-03-31] MEDS: traMADol 50 MG TABLET PO SCH (21:44)
[2018-03-31] MEDS: ROSUVASTATIN 20 MG TABLET PO SCH (21:45)
[2018-03-31] MEDS: MAGNESIUM OXIDE 400 MG TABLET PO SCH (21:45)
[2018-03-31] MEDS: rOPINIRole 1 MG TABLET PO SCH (21:45)
[2018-04-01] MEDS: ALBUTEROL/IPRATROPIUM 3 ML NEB RESP TX SCH ×4 (00:29→19:23)
[2018-04-01] MEDS: BUDESONIDE 0.5 MG/2 ML NEB RESP TX SCH (07:27)
[2018-04-01 08:09] LABS: Calcium 8.2 MG/DL (8.5-10.1); Osmolality,Calculated 288.8 MOS/KG (273-304); Potassium 3.1 MMOL/L (3.5-5.1)
[2018-04-01 08:53] LABS: Hematocrit 28.4 VOL% (35.7-47.0); Hemoglobin 9.3 GM/DL (12.0-16.0)
[2018-04-01] MEDS: ENOXAPARIN 80 MG/0.8 ML SYRINGE SUBCUT SCH (10:25)
[2018-04-01] MEDS: traMADol 50 MG TABLET PO SCH ×2 (10:25→21:41)
[2018-04-01] MEDS: LACTATED RINGERS 1,000 ML IV SCH (10:25)
[2018-04-01] MEDS: SENNA 8.6 MG TABLET PO SCH ×2 (10:26→21:41)
[2018-04-01] MEDS: TOLTERODINE LA 4 MG CAPSULE PO SCH (10:26)
[2018-04-01] MEDS: busPIRone 5 MG TABLET PO SCH ×2 (10:27→21:41)
[2018-04-01] MEDS: ACETAMINOPHEN 325 MG TABLET PO SCH ×2 (10:27→21:43)
[2018-04-01] MEDS: ASPIRIN EC 81 MG TABLET PO SCH (10:27)
[2018-04-01] MEDS: DOCUSATE SODIUM 100 MG CAPSULE PO SCH ×2 (10:27→21:40)
[2018-04-01] MEDS: GABAPENTIN 300 MG CAPSULE PO SCH ×3 (10:27→21:41)
[2018-04-01] MEDS: PANTOPRAZOLE 40 MG TABLET PO SCH ×2 (10:27→21:41)
[2018-04-01] MEDS: CARVEDILOL 3.125 MG TABLET PO SCH ×2 (10:28→17:19)
[2018-04-01] MEDS ORDERED: POTASSIUM CHLORIDE 20 MEQ/15 ML UDCUP PO ONE (14:32)
[2018-04-01 16:35] LABS: Hematocrit 31.6 VOL% (35.7-47.0)
[2018-04-01] MEDS: POTASSIUM CHLORIDE 20 MEQ TABLET PO PRN ×2 (17:37→21:41)
[2018-04-01] MEDS: ROSUVASTATIN 20 MG TABLET PO SCH (21:41)
[2018-04-01] MEDS: rOPINIRole 1 MG TABLET PO SCH (21:41)
[2018-04-01] MEDS: MAGNESIUM OXIDE 400 MG TABLET PO SCH (21:41)
[2018-04-02] MEDS: ALBUTEROL/IPRATROPIUM 3 ML NEB RESP TX SCH ×5 (00:06→19:09)
[2018-04-02 05:24] LABS: Basophils % 0.4 % (0.0-0.8); Eosinophils # 0.2 10*3/uL (0.0-0.87); Eosinophils % 4.5 % (0.00-10.9); Hematocrit 30.1 VOL% (35.7-47.0); Hemoglobin 9.7 GM/DL (12.0-16.0); Immature Granulocytes % 0.6 %; Immature Granulocytes Absolute 0.03 #; Lymphocytes # 1.6 10*3/uL (1.4-4.0); Lymphocytes % 30.6 % (21.3-54.2); Mean Corpuscular HGB Conc 32.2 GM/DL (32-36); Mean Corpuscular Hemoglobin 33 PG (27-34); Mean Corpuscular Volume 103.4 FL (87-102); Mean Platelet Volume 10.6 FL (9.6-12.0); Monocytes # 0.6 10*3/uL (0.11-0.8); Monocytes % 11.6 % (1.7-12.7); Neutrophils # 2.8 10*3/uL (1.4-7.4); Neutrophils % 52.3 % (38.7-73.9); Platelet Count 123 T/CUMM (130-400); Red Blood Count 2.91 MC/CUMM (3.8-5.5); Red Cell Distribution Width 15.1 % (9.3-17.3); White Blood Count 5.4 T/CUMM (4-12)
[2018-04-02 05:35] LABS: Osmolality,Calculated 284.1 MOS/KG (273-304); Potassium 4.3 MMOL/L (3.5-5.1)
[2018-04-02] MEDS: BUDESONIDE 0.5 MG/2 ML NEB RESP TX SCH (07:10)
[2018-04-02] MEDS: ENOXAPARIN 40 MG/0.4 ML SYRINGE SUBCUT SCH (08:59)
[2018-04-02] MEDS: DOCUSATE SODIUM 100 MG CAPSULE PO SCH ×2 (09:00→20:44)
[2018-04-02] MEDS: GABAPENTIN 300 MG CAPSULE PO SCH ×3 (09:00→20:44)
[2018-04-02] MEDS: ACETAMINOPHEN 325 MG TABLET PO SCH ×2 (09:00→20:52)
[2018-04-02] MEDS: TOLTERODINE LA 4 MG CAPSULE PO SCH (09:00)
[2018-04-02] MEDS: busPIRone 5 MG TABLET PO SCH ×2 (09:00→20:44)
[2018-04-02] MEDS: PANTOPRAZOLE 40 MG TABLET PO SCH ×2 (09:00→20:44)
[2018-04-02] MEDS: SENNA 8.6 MG TABLET PO SCH ×2 (09:01→20:45)
[2018-04-02] MEDS: traMADol 50 MG TABLET PO SCH ×2 (09:01→20:44)
[2018-04-02] MEDS: CARVEDILOL 3.125 MG TABLET PO SCH ×2 (09:01→16:58)
[2018-04-02] MEDS: ASPIRIN EC 81 MG TABLET PO SCH (09:02)
[2018-04-02] MEDS ORDERED: SIMETHICONE CHEW 125 MG TABLET PO SCH (16:30)
[2018-04-02] MEDS: ROSUVASTATIN 20 MG TABLET PO SCH (20:44)
[2018-04-02] MEDS: rOPINIRole 1 MG TABLET PO SCH (20:44)
[2018-04-02] MEDS: MAGNESIUM OXIDE 400 MG TABLET PO SCH (20:45)
[2018-04-02] MEDS: ALUMINUM/MAGNES/SIMETH MAX STR 30 ML UDCUP PO PRN (22:32)
[2018-04-03] MEDS: ALBUTEROL/IPRATROPIUM 3 ML NEB RESP TX SCH ×4 (01:04→19:34)
[2018-04-03 06:11] LABS: Basophils % 0.4 % (0.0-0.8); Eosinophils # 0.2 10*3/uL (0.0-0.87); Eosinophils % 4.9 % (0.00-10.9); Hematocrit 30.6 VOL% (35.7-47.0); Immature Granulocytes % 0.4 %; Immature Granulocytes Absolute 0.02 #; Lymphocytes # 1.4 10*3/uL (1.4-4.0); Mean Corpuscular HGB Conc 32.7 GM/DL (32-36); Mean Corpuscular Hemoglobin 34 PG (27-34); Mean Corpuscular Volume 103.4 FL (87-102); Mean Platelet Volume 10.9 FL (9.6-12.0); Monocytes # 0.5 10*3/uL (0.11-0.8); Monocytes % 9.6 % (1.7-12.7); Neutrophils # 2.8 10*3/uL (1.4-7.4); Neutrophils % 56.7 % (38.7-73.9); Platelet Count 117 T/CUMM (130-400); Red Blood Count 2.96 MC/CUMM (3.8-5.5); Red Cell Distribution Width 15.4 % (9.3-17.3); White Blood Count 4.9 T/CUMM (4-12)
[2018-04-03 06:27] LABS: Calcium 8.8 MG/DL (8.5-10.1); Osmolality,Calculated 284.8 MOS/KG (273-304)
[2018-04-03] MEDS: BUDESONIDE 0.5 MG/2 ML NEB RESP TX SCH (07:00)
[2018-04-03] MEDS: PANTOPRAZOLE 40 MG TABLET PO SCH ×2 (09:54→20:43)
[2018-04-03] MEDS: busPIRone 5 MG TABLET PO SCH ×2 (09:54→20:44)
[2018-04-03] MEDS: GABAPENTIN 300 MG CAPSULE PO SCH ×3 (09:54→20:44)
[2018-04-03] MEDS: TOLTERODINE LA 4 MG CAPSULE PO SCH (09:54)
[2018-04-03] MEDS: traMADol 50 MG TABLET PO SCH ×2 (09:55→20:44)
[2018-04-03] MEDS: CARVEDILOL 3.125 MG TABLET PO SCH ×2 (09:55→17:58)
[2018-04-03] MEDS: DOCUSATE SODIUM 100 MG CAPSULE PO SCH (09:55)
[2018-04-03] MEDS: SENNA 8.6 MG TABLET PO SCH (09:55)
[2018-04-03] MEDS: ACETAMINOPHEN 325 MG TABLET PO SCH ×2 (09:55→20:43)
[2018-04-03] MEDS: ASPIRIN EC 81 MG TABLET PO SCH (09:55)
[2018-04-03] MEDS: ENOXAPARIN 40 MG/0.4 ML SYRINGE SUBCUT SCH ×2 (09:56→12:48)
[2018-04-03] MEDS: ALUMINUM/MAGNES/SIMETH MAX STR 30 ML UDCUP PO PRN (12:25)
[2018-04-03 17:17] LABS: PT Patient Result 10.3 SECS
[2018-04-03] MEDS: BISACODYL 5 MG TABLET PO SCH (17:58)
[2018-04-03] MEDS: ROSUVASTATIN 20 MG TABLET PO SCH (20:43)
[2018-04-03] MEDS: MAGNESIUM OXIDE 400 MG TABLET PO SCH (20:44)
[2018-04-03] MEDS: rOPINIRole 1 MG TABLET PO SCH (20:44)
[2018-04-03] MEDS ORDERED: MAGNESIUM CITRATE 300 ML BOTTLE PO ONE (21:00)
[2018-04-04] MEDS: BISACODYL 5 MG TABLET PO SCH ×3 (00:02→19:34)
[2018-04-04] MEDS: ALBUTEROL/IPRATROPIUM 3 ML NEB RESP TX SCH ×4 (05:20→19:53)
[2018-04-04 06:49] LABS: Basophils % 0.2 % (0.0-0.8); Eosinophils # 0.3 10*3/uL (0.0-0.87); Eosinophils % 5.6 % (0.00-10.9); Hemoglobin 11.7 GM/DL (12.0-16.0); Immature Granulocytes % 0.9 %; Immature Granulocytes Absolute 0.05 #; Lymphocytes # 1.4 10*3/uL (1.4-4.0); Lymphocytes % 26.7 % (21.3-54.2); Mean Corpuscular HGB Conc 32.5 GM/DL (32-36); Mean Corpuscular Hemoglobin 33 PG (27-34); Mean Corpuscular Volume 102.3 FL (87-102); Mean Platelet Volume 10.3 FL (9.6-12.0); Monocytes # 0.5 10*3/uL (0.11-0.8); Monocytes % 8.6 % (1.7-12.7); Neutrophils # 3.1 10*3/uL (1.4-7.4); Platelet Count 133 T/CUMM (130-400); Red Blood Count 3.52 MC/CUMM (3.8-5.5); Red Cell Distribution Width 15.2 % (9.3-17.3); White Blood Count 5.4 T/CUMM (4-12)
[2018-04-04 07:20] LABS: Calcium 9.8 MG/DL (8.5-10.1); Osmolality,Calculated 282.1 MOS/KG (273-304); Potassium 4.1 MMOL/L (3.5-5.1)
[2018-04-04] MEDS: BUDESONIDE 0.5 MG/2 ML NEB RESP TX SCH (07:49)
[2018-04-04] MEDS ORDERED: ONDANSETRON 4 MG/2 ML VIAL ONE (09:00)
[2018-04-04] MEDS ORDERED: LIDOCAINE 100 MG/5 ML SYRINGE ONE (09:00)
[2018-04-04] MEDS ORDERED: ETOMIDATE 20 MG/10 ML VIAL IV ONE (09:00)
[2018-04-04] MEDS ORDERED: BISACODYL 5 MG TABLET PO SCH (09:30)
[2018-04-04] MEDS: busPIRone 5 MG TABLET PO SCH ×2 (10:35→21:07)
[2018-04-04] MEDS: GABAPENTIN 300 MG CAPSULE PO SCH ×3 (10:35→23:59)
[2018-04-04] MEDS: TOLTERODINE LA 4 MG CAPSULE PO SCH (10:35)
[2018-04-04] MEDS: traMADol 50 MG TABLET PO SCH ×2 (10:36→21:08)
[2018-04-04] MEDS: ACETAMINOPHEN 325 MG TABLET PO SCH ×2 (10:36→21:08)
[2018-04-04] MEDS: CARVEDILOL 3.125 MG TABLET PO SCH ×2 (10:36→18:29)
[2018-04-04] MEDS: PANTOPRAZOLE 40 MG TABLET PO SCH ×2 (10:39→21:08)
[2018-04-04] MEDS ORDERED: POLYETHYLENE GLYCOL POWDER 255 GM BOTTLE PO ONE (18:00)
[2018-04-04] MEDS ORDERED: BISACODYL 5 MG TABLET ONE (19:26)
[2018-04-04] MEDS: ONDANSETRON 4 MG/2 ML VIAL IV PRN (21:05)
[2018-04-04] MEDS: MAGNESIUM OXIDE 400 MG TABLET PO SCH (21:07)
[2018-04-04] MEDS: rOPINIRole 1 MG TABLET PO SCH (21:07)
[2018-04-04] MEDS: ROSUVASTATIN 20 MG TABLET PO SCH (21:08)
[2018-04-05] MEDS: ALBUTEROL/IPRATROPIUM 3 ML NEB RESP TX SCH ×3 (01:39→13:01)
[2018-04-05 05:43] LABS: Basophils % 0.2 % (0.0-0.8); Eosinophils # 0.3 10*3/uL (0.0-0.87); Eosinophils % 5.4 % (0.00-10.9); Hematocrit 35.3 VOL% (35.7-47.0); Hemoglobin 11.1 GM/DL (12.0-16.0); Immature Granulocytes % 0.8 %; Immature Granulocytes Absolute 0.04 #; Lymphocytes # 1.6 10*3/uL (1.4-4.0); Lymphocytes % 34.3 % (21.3-54.2); Mean Corpuscular HGB Conc 31.4 GM/DL (32-36); Mean Corpuscular Hemoglobin 34 PG (27-34); Mean Platelet Volume 9.7 FL (9.6-12.0); Monocytes # 0.4 10*3/uL (0.11-0.8); Monocytes % 9.2 % (1.7-12.7); Neutrophils # 2.4 10*3/uL (1.4-7.4); Neutrophils % 50.1 % (38.7-73.9); Platelet Count 121 T/CUMM (130-400); Red Blood Count 3.27 MC/CUMM (3.8-5.5); Red Cell Distribution Width 15.2 % (9.3-17.3); White Blood Count 4.8 T/CUMM (4-12)
[2018-04-05 06:05] LABS: Calcium 9.4 MG/DL (8.5-10.1); Osmolality,Calculated 279.3 MOS/KG (273-304)
[2018-04-05] MEDS: BUDESONIDE 0.5 MG/2 ML NEB RESP TX SCH (07:25)
[2018-04-05] MEDS: GABAPENTIN 300 MG CAPSULE PO SCH ×2 (09:57→16:30)
[2018-04-05] MEDS: PANTOPRAZOLE 40 MG TABLET PO SCH (09:57)
[2018-04-05] MEDS: TOLTERODINE LA 4 MG CAPSULE PO SCH (09:58)
[2018-04-05] MEDS: traMADol 50 MG TABLET PO SCH (09:58)
[2018-04-05] MEDS: busPIRone 5 MG TABLET PO SCH (09:58)
[2018-04-05] MEDS: CARVEDILOL 3.125 MG TABLET PO SCH ×2 (09:59→16:30)
[2018-04-05] MEDS: ACETAMINOPHEN 325 MG TABLET PO SCH (09:59)
[2018-04-05] MEDS ORDERED: PHENYLEPHRINE 1 MG/10 ML SYRINGE IV ONE (10:00)
[2018-04-05] MEDS ORDERED: LIDOCAINE 2% 5 ML VIAL ONE (10:00)
[2018-04-05] MEDS ORDERED: PROPOFOL 200 MG/20 ML VIAL IV ONE (10:00)
[2018-04-05 13:18] VITALS: BP 117/71
== END 2018-04-05 17:30 | disposition home or self-care (01) | DRG 194 ==
LOC: N.ED 15:32 → N.EDINP 15:32 → N.5E 21:03 → SUATTDRO 03-30 09:50
PROVIDERS: ADMIT Internal Medicine; ATTEND Internal Medicine
PROC: COLONBX (2018-04-05 07:35)

== ENCOUNTER 2018-06-29 09:43 | Inpatient (IN) ==
[2018-06-29 12:57] LABS: Basophils % 0.2 % (0.0-0.8); Eosinophils # 0.2 10*3/uL (0.0-0.87); Eosinophils % 2.2 % (0.00-10.9); Hematocrit 39.7 VOL% (35.7-47.0); Hemoglobin 12.5 GM/DL (12.0-16.0); Immature Granulocytes % 0.7 %; Immature Granulocytes Absolute 0.08 #; Lymphocytes # 2.2 10*3/uL (1.4-4.0); Lymphocytes % 19.8 % (21.3-54.2); Mean Corpuscular HGB Conc 31.5 GM/DL (32-36); Mean Corpuscular Hemoglobin 32 PG (27-34); Mean Corpuscular Volume 102.6 FL (87-102); Mean Platelet Volume 10.4 FL (9.6-12.0); Monocytes # 1.1 10*3/uL (0.11-0.8); Neutrophils # 7.4 10*3/uL (1.4-7.4); Neutrophils % 67.1 % (38.7-73.9); Platelet Count 183 T/CUMM (130-400); Red Blood Count 3.87 MC/CUMM (3.8-5.5); Red Cell Distribution Width 14.1 % (9.3-17.3); White Blood Count 11.1 T/CUMM (4-12)
[2018-06-29 13:00] LABS: Alanine Aminotransferase 28 U/L (13-56); Albumin 3.1 G/DL (3.4-5.0); Alkaline Phosphatase 90 U/L (45-117); Aspartate Amino Transferase 21 U/L (0-37); Blood Urea Nitrogen 38 MG/DL (7-18); Calcium 9.1 MG/DL (8.5-10.1); Glucose 110 MG/DL (74-106); Lactic Acid 1.6 MMOL/L (0.4-2.0); Osmolality,Calculated 288.4 MOS/KG (273-304); Potassium 3.5 MMOL/L (3.5-5.1); Sodium 140 MMOL/L (136-145); Total Protein 7.5 G/DL (6.4-8.3); Troponin I < 0.015 NG/ML (0.00-0.045)
[2018-06-29] MEDS ORDERED: DILTIAZEM 50 MG/10 ML VIAL IV STA (13:20)
[2018-06-29] MEDS ORDERED: SODIUM CHLORIDE 0.9% 0 ML IV ONE (13:28)
[2018-06-29] MEDS ORDERED: dilTIAZem Drip 125 MG/125 ML PREMIX IV ONE (13:29)
[2018-06-29] MEDS: dilTIAZem Drip 125 MG/125 ML PREMIX IV SCH (14:00)
[2018-06-29] MEDS ORDERED: guaiFENesin/DM ER 600-30 MG TABLET PO PRN (14:06)
[2018-06-29] MEDS ORDERED: DOCUSATE SODIUM 100 MG CAPSULE PO PRN (14:06)
[2018-06-29] MEDS ORDERED: ONDANSETRON 4 MG/2 ML VIAL IV PRN (14:06)
[2018-06-29] MEDS ORDERED: SODIUM CHLORIDE 0.9% 1,000 ML IV SCH (14:30)
[2018-06-29] MEDS: PANTOPRAZOLE 40 MG TABLET PO SCH (16:03)
[2018-06-29] MEDS ORDERED: ENOXAPARIN 40 MG/0.4 ML SYRINGE SUBCUT SCH (21:00)
[2018-06-29] MEDS: ACETAMINOPHEN 325 MG TABLET PO PRN (21:25)
[2018-06-29] MEDS: MORPHINE 4 MG/1 ML VIAL IV PRN (23:12)
[2018-06-30 04:21] LABS: Basophils % 0.3 % (0.0-0.8); Eosinophils # 0.3 10*3/uL (0.0-0.87); Eosinophils % 3.9 % (0.00-10.9); Hematocrit 35.2 VOL% (35.7-47.0); Hemoglobin 11.1 GM/DL (12.0-16.0); Immature Granulocytes % 0.5 %; Immature Granulocytes Absolute 0.04 #; Lymphocytes # 1.9 10*3/uL (1.4-4.0); Lymphocytes % 24.1 % (21.3-54.2); Mean Corpuscular HGB Conc 31.5 GM/DL (32-36); Mean Corpuscular Hemoglobin 32 PG (27-34); Mean Corpuscular Volume 102.3 FL (87-102); Mean Platelet Volume 9.9 FL (9.6-12.0); Monocytes # 0.8 10*3/uL (0.11-0.8); Monocytes % 9.8 % (1.7-12.7); Neutrophils # 4.8 10*3/uL (1.4-7.4); Neutrophils % 61.4 % (38.7-73.9); Platelet Count 155 T/CUMM (130-400); Red Blood Count 3.44 MC/CUMM (3.8-5.5); White Blood Count 7.8 T/CUMM (4-12)
[2018-06-30 04:51] LABS: Calcium 8.5 MG/DL (8.5-10.1); Osmolality,Calculated 288.1 MOS/KG (273-304); Potassium 3.1 MMOL/L (3.5-5.1); Risk Ratio 2.05; VLDL CHOLESTEROL 29.8 MG/DL
[2018-06-30] MEDS: MORPHINE 4 MG/1 ML VIAL IV PRN ×3 (06:00→13:53)
[2018-06-30] MEDS: POTASSIUM CHLORIDE 20 MEQ TABLET PO PRN ×4 (08:06→16:00)
[2018-06-30] MEDS: PANTOPRAZOLE 40 MG TABLET PO SCH ×3 (08:07→22:17)
[2018-06-30] MEDS: TOLTERODINE LA 4 MG CAPSULE PO SCH (08:29)
[2018-06-30] MEDS: POTASSIUM CHLORIDE 20 MEQ TABLET PO SCH ×2 (08:29→22:16)
[2018-06-30] MEDS: THEOPHYLLINE ER 300 MG TABLET PO SCH (08:29)
[2018-06-30] MEDS: MULTIVITAMIN (CENTRUM) TABLET PO SCH (08:30)
[2018-06-30] MEDS: GABAPENTIN 300 MG CAPSULE PO SCH ×3 (08:30→22:16)
[2018-06-30] MEDS: amLODIPine 2.5 MG TABLET PO SCH ×2 (08:30→22:16)
[2018-06-30] MEDS: CYANOCOBALAMIN 500 MCG TABLET PO SCH (08:30)
[2018-06-30] MEDS: CETIRIZINE 10 MG TABLET PO SCH (08:30)
[2018-06-30] MEDS: FUROSEMIDE 80 MG TABLET PO SCH ×2 (08:32→22:16)
[2018-06-30] MEDS ORDERED: CARVEDILOL 3.125 MG TABLET PO SCH (09:00)
[2018-06-30] MEDS ORDERED: ACETAMINOPHEN 325 MG TABLET PO ONE (10:11)
[2018-06-30] MEDS: dilTIAZem Drip 125 MG/125 ML PREMIX IV SCH (12:00)
[2018-06-30] MEDS: ALBUTEROL 1.25 MG/3 ML NEB RESP TX SCH ×3 (14:37→23:26)
[2018-06-30] MEDS: BUDESONIDE/FORMOTEROL 160-4.5 INHALER 6 GM INH SCH (18:54)
[2018-06-30] MEDS: busPIRone 5 MG TABLET PO SCH (19:02)
[2018-06-30] MEDS: CARVEDILOL 6.25 MG TABLET PO SCH (22:14)
[2018-06-30] MEDS: ASPIRIN EC 81 MG TABLET PO SCH (22:14)
[2018-06-30] MEDS: ROSUVASTATIN 20 MG TABLET PO SCH (22:14)
[2018-06-30] MEDS: rOPINIRole 1 MG TABLET PO SCH (22:17)
[2018-06-30] MEDS: CHOLECALCIFEROL 1,000 UNIT TABLET PO SCH (22:18)
[2018-06-30] MEDS: ENOXAPARIN 40 MG/0.4 ML SYRINGE SUBCUT SCH (22:18)
[2018-07-01] MEDS: MORPHINE 4 MG/1 ML VIAL IV PRN ×3 (01:07→21:04)
[2018-07-01] MEDS: ALBUTEROL 1.25 MG/3 ML NEB RESP TX SCH ×6 (02:58→23:57)
[2018-07-01 05:08] LABS: Basophils % 0.3 % (0.0-0.8); Eosinophils # 0.4 10*3/uL (0.0-0.87); Hematocrit 36.4 VOL% (35.7-47.0); Hemoglobin 11.3 GM/DL (12.0-16.0); Immature Granulocytes % 0.7 %; Immature Granulocytes Absolute 0.06 #; Lymphocytes # 1.2 10*3/uL (1.4-4.0); Lymphocytes % 14.2 % (21.3-54.2); Mean Corpuscular Hemoglobin 32 PG (27-34); Mean Corpuscular Volume 104.3 FL (87-102); Mean Platelet Volume 10.3 FL (9.6-12.0); Monocytes # 0.7 10*3/uL (0.11-0.8); Monocytes % 8.5 % (1.7-12.7); Neutrophils # 6.3 10*3/uL (1.4-7.4); Neutrophils % 72.3 % (38.7-73.9); Platelet Count 153 T/CUMM (130-400); Red Blood Count 3.49 MC/CUMM (3.8-5.5); Red Cell Distribution Width 14.1 % (9.3-17.3); White Blood Count 8.7 T/CUMM (4-12)
[2018-07-01 05:36] LABS: Osmolality,Calculated 287.1 MOS/KG (273-304); Potassium 3.6 MMOL/L (3.5-5.1)
[2018-07-01] MEDS: LEVOTHYROXINE 50 MCG TABLET PO SCH (06:18)
[2018-07-01 06:40] LABS: Apearance,Urine CLEAR (Clear); Bilirubin,Urine Negative (Negative); Blood, Urine Negative (Negative); Glucose,Urine (UA) Negative (Negative); Ketones,Urine Negative (Negative); Nitrite,Urine Negative (Negative); Protein,Urine Negative; RBC,Urine <1 /HPF (0-4); Squamous Epithelial Cell,Urine Occasional /HPF (0-10); Urine Specific Gravity 1.005 (1.001-1.035); Urine Urobilinogen < 2.0 EU/DL (0.2-1.0); WBC,Urine <1 /HPF (0-6)
[2018-07-01 06:44] LABS: Urine Color Light Yellow (Yellow)
[2018-07-01] MEDS: amLODIPine 2.5 MG TABLET PO SCH ×2 (08:35→21:02)
[2018-07-01] MEDS: FUROSEMIDE 80 MG TABLET PO SCH ×2 (08:35→21:03)
[2018-07-01] MEDS: CETIRIZINE 10 MG TABLET PO SCH (08:35)
[2018-07-01] MEDS: TOLTERODINE LA 4 MG CAPSULE PO SCH (08:35)
[2018-07-01] MEDS: POTASSIUM CHLORIDE 20 MEQ TABLET PO SCH ×2 (08:35→21:02)
[2018-07-01] MEDS: CARVEDILOL 6.25 MG TABLET PO SCH ×2 (08:35→21:02)
[2018-07-01] MEDS: PANTOPRAZOLE 40 MG TABLET PO SCH ×3 (08:36→21:02)
[2018-07-01] MEDS: MULTIVITAMIN (CENTRUM) TABLET PO SCH (08:36)
[2018-07-01] MEDS: GABAPENTIN 300 MG CAPSULE PO SCH ×3 (08:36→21:02)
[2018-07-01] MEDS: THEOPHYLLINE ER 300 MG TABLET PO SCH (08:36)
[2018-07-01] MEDS: busPIRone 5 MG TABLET PO SCH ×2 (08:38→18:02)
[2018-07-01] MEDS: CYANOCOBALAMIN 500 MCG TABLET PO SCH (08:39)
[2018-07-01] MEDS: BUDESONIDE/FORMOTEROL 160-4.5 INHALER 6 GM INH SCH (09:13)
[2018-07-01] MEDS: ASPIRIN EC 81 MG TABLET PO SCH (21:02)
[2018-07-01] MEDS: rOPINIRole 1 MG TABLET PO SCH (21:02)
[2018-07-01] MEDS: ROSUVASTATIN 20 MG TABLET PO SCH (21:02)
[2018-07-01] MEDS: CHOLECALCIFEROL 1,000 UNIT TABLET PO SCH (21:02)
[2018-07-01] MEDS: ENOXAPARIN 40 MG/0.4 ML SYRINGE SUBCUT SCH (21:03)
[2018-07-02] MEDS: traMADol 50 MG TABLET PO PRN (00:15)
[2018-07-02] MEDS: MORPHINE 4 MG/1 ML VIAL IV PRN (01:56)
[2018-07-02] MEDS: ALBUTEROL 1.25 MG/3 ML NEB RESP TX SCH ×5 (04:13→20:51)
[2018-07-02 05:23] LABS: Basophils % 0.3 % (0.0-0.8); Eosinophils # 0.4 10*3/uL (0.0-0.87); Eosinophils % 4.8 % (0.00-10.9); Hematocrit 34.2 VOL% (35.7-47.0); Hemoglobin 10.8 GM/DL (12.0-16.0); Immature Granulocytes % 0.5 %; Immature Granulocytes Absolute 0.04 #; Lymphocytes # 1.2 10*3/uL (1.4-4.0); Lymphocytes % 16.6 % (21.3-54.2); Mean Corpuscular HGB Conc 31.6 GM/DL (32-36); Mean Corpuscular Hemoglobin 32 PG (27-34); Mean Corpuscular Volume 102.1 FL (87-102); Mean Platelet Volume 9.9 FL (9.6-12.0); Monocytes # 0.8 10*3/uL (0.11-0.8); Monocytes % 10.1 % (1.7-12.7); Neutrophils % 67.7 % (38.7-73.9); Platelet Count 142 T/CUMM (130-400); Red Blood Count 3.35 MC/CUMM (3.8-5.5); Red Cell Distribution Width 13.7 % (9.3-17.3); White Blood Count 7.4 T/CUMM (4-12)
[2018-07-02 05:39] LABS: Calcium 8.8 MG/DL (8.5-10.1); Osmolality,Calculated 283.4 MOS/KG (273-304); Potassium 3.4 MMOL/L (3.5-5.1)
[2018-07-02] MEDS: LEVOTHYROXINE 50 MCG TABLET PO SCH (05:48)
[2018-07-02] MEDS: CYANOCOBALAMIN 500 MCG TABLET PO SCH (08:29)
[2018-07-02] MEDS: CARVEDILOL 6.25 MG TABLET PO SCH ×2 (08:31→21:38)
[2018-07-02] MEDS: CETIRIZINE 10 MG TABLET PO SCH (08:31)
[2018-07-02] MEDS: TOLTERODINE LA 4 MG CAPSULE PO SCH (08:31)
[2018-07-02] MEDS: FUROSEMIDE 80 MG TABLET PO SCH ×2 (08:31→21:38)
[2018-07-02] MEDS: THEOPHYLLINE ER 300 MG TABLET PO SCH (08:31)
[2018-07-02] MEDS: POTASSIUM CHLORIDE 20 MEQ TABLET PO SCH ×2 (08:31→21:40)
[2018-07-02] MEDS: GABAPENTIN 300 MG CAPSULE PO SCH ×3 (08:31→21:38)
[2018-07-02] MEDS: MULTIVITAMIN (CENTRUM) TABLET PO SCH (08:31)
[2018-07-02] MEDS: PANTOPRAZOLE 40 MG TABLET PO SCH ×4 (08:32→21:39)
[2018-07-02] MEDS: amLODIPine 2.5 MG TABLET PO SCH ×2 (08:32→21:37)
[2018-07-02] MEDS: busPIRone 5 MG TABLET PO SCH ×2 (08:32→21:37)
[2018-07-02] MEDS: BUDESONIDE/FORMOTEROL 160-4.5 INHALER 6 GM INH SCH (08:37)
[2018-07-02] MEDS: POTASSIUM CHLORIDE 20 MEQ TABLET PO PRN ×2 (13:58→17:51)
[2018-07-02] MEDS ORDERED: methylPREDNISolone 4 MG TABLET PO SCH (15:00)
[2018-07-02] MEDS: methylPREDNISolone 4 MG TABLET PO SCH (21:37)
[2018-07-02] MEDS: ROSUVASTATIN 20 MG TABLET PO SCH (21:37)
[2018-07-02] MEDS: rOPINIRole 1 MG TABLET PO SCH (21:37)
[2018-07-02] MEDS: CHOLECALCIFEROL 1,000 UNIT TABLET PO SCH (21:39)
[2018-07-02] MEDS: ASPIRIN EC 81 MG TABLET PO SCH (21:39)
[2018-07-02] MEDS: ENOXAPARIN 40 MG/0.4 ML SYRINGE SUBCUT SCH (21:45)
[2018-07-03] MEDS: MORPHINE 4 MG/1 ML VIAL IV PRN (00:39)
[2018-07-03] MEDS: ALBUTEROL 1.25 MG/3 ML NEB RESP TX SCH ×7 (01:04→23:24)
[2018-07-03] MEDS: LEVOTHYROXINE 50 MCG TABLET PO SCH (06:21)
[2018-07-03] MEDS: TOLTERODINE LA 4 MG CAPSULE PO SCH (08:38)
[2018-07-03] MEDS: POTASSIUM CHLORIDE 20 MEQ TABLET PO SCH ×2 (08:38→21:13)
[2018-07-03] MEDS: THEOPHYLLINE ER 300 MG TABLET PO SCH (08:38)
[2018-07-03] MEDS: busPIRone 5 MG TABLET PO SCH ×2 (08:38→21:14)
[2018-07-03] MEDS: CYANOCOBALAMIN 500 MCG TABLET PO SCH (08:39)
[2018-07-03] MEDS: GABAPENTIN 300 MG CAPSULE PO SCH ×3 (08:39→21:14)
[2018-07-03] MEDS: CARVEDILOL 6.25 MG TABLET PO SCH ×2 (08:40→21:14)
[2018-07-03] MEDS: BUDESONIDE/FORMOTEROL 160-4.5 INHALER 6 GM INH SCH (08:40)
[2018-07-03] MEDS: CETIRIZINE 10 MG TABLET PO SCH (08:40)
[2018-07-03] MEDS: FUROSEMIDE 80 MG TABLET PO SCH (08:40)
[2018-07-03] MEDS: amLODIPine 2.5 MG TABLET PO SCH ×2 (08:40→21:14)
[2018-07-03] MEDS: MULTIVITAMIN (CENTRUM) TABLET PO SCH (08:40)
[2018-07-03] MEDS: PANTOPRAZOLE 40 MG TABLET PO SCH ×3 (08:41→21:15)
[2018-07-03] MEDS: methylPREDNISolone 4 MG TABLET PO SCH ×3 (08:45→21:13)
[2018-07-03] MEDS: POTASSIUM CHLORIDE 20 MEQ TABLET PO PRN ×3 (13:38→18:31)
[2018-07-03] MEDS ORDERED: METOPROLOL TARTRATE 5 MG/5 ML VIAL IV ONE (16:13)
[2018-07-03] MEDS ORDERED: DILTIAZEM 50 MG/10 ML VIAL IV ONE (17:29)
[2018-07-03] MEDS ORDERED: DILTIAZEM 25 MG/5 ML VIAL IV ONE (18:00)
[2018-07-03] MEDS: dilTIAZem Drip 125 MG/125 ML PREMIX IV SCH (18:14)
[2018-07-03] MEDS: ROSUVASTATIN 20 MG TABLET PO SCH (21:13)
[2018-07-03] MEDS: CHOLECALCIFEROL 1,000 UNIT TABLET PO SCH (21:13)
[2018-07-03] MEDS: ASPIRIN EC 81 MG TABLET PO SCH (21:14)
[2018-07-03] MEDS: rOPINIRole 1 MG TABLET PO SCH (21:14)
[2018-07-04] MEDS: dilTIAZem Drip 125 MG/125 ML PREMIX IV SCH ×2 (00:45→08:35)
[2018-07-04] MEDS: ALBUTEROL 1.25 MG/3 ML NEB RESP TX SCH ×6 (03:17→23:55)
[2018-07-04] MEDS: ACETAMINOPHEN 325 MG TABLET PO PRN (04:39)
[2018-07-04] MEDS: LEVOTHYROXINE 50 MCG TABLET PO SCH (06:07)
[2018-07-04] MEDS ORDERED: TISSUE ADHESIVE 1 EACH APPLICATOR TOP ONE (06:28)
[2018-07-04] MEDS ORDERED: DEXAMETHASONE 10 MG/1 ML VIAL ONE (06:29)
[2018-07-04] MEDS ORDERED: LIDOCAINE 1% 20 ML VIAL ONE (06:29)
[2018-07-04] MEDS ORDERED: ceFAZolin 2,000 MG in PREMIX 1 EACH IV ONE (06:30)
[2018-07-04] MEDS ORDERED: ceFAZolin 1,000 MG VIAL ONE (07:20)
[2018-07-04] MEDS ORDERED: PROPOFOL 200 MG/20 ML VIAL IV ONE (07:58)
[2018-07-04] MEDS ORDERED: fentaNYL 100 MCG/2 ML VIAL ONE (07:59)
[2018-07-04] MEDS ORDERED: ONDANSETRON 4 MG/2 ML VIAL ONE (07:59)
[2018-07-04] MEDS: busPIRone 5 MG TABLET PO SCH ×2 (08:37→20:37)
[2018-07-04] MEDS: TOLTERODINE LA 4 MG CAPSULE PO SCH (08:38)
[2018-07-04] MEDS: methylPREDNISolone 4 MG TABLET PO SCH ×3 (08:38→20:37)
[2018-07-04] MEDS: MULTIVITAMIN (CENTRUM) TABLET PO SCH (08:39)
[2018-07-04] MEDS: POTASSIUM CHLORIDE 20 MEQ TABLET PO SCH (08:39)
[2018-07-04] MEDS: CETIRIZINE 10 MG TABLET PO SCH (08:39)
[2018-07-04] MEDS: THEOPHYLLINE ER 300 MG TABLET PO SCH (08:40)
[2018-07-04] MEDS: CARVEDILOL 6.25 MG TABLET PO SCH ×2 (08:40→20:38)
[2018-07-04] MEDS: GABAPENTIN 300 MG CAPSULE PO SCH ×3 (08:40→20:37)
[2018-07-04] MEDS: amLODIPine 2.5 MG TABLET PO SCH ×2 (08:40→20:37)
[2018-07-04] MEDS: PANTOPRAZOLE 40 MG TABLET PO SCH ×3 (08:41→20:38)
[2018-07-04] MEDS: FUROSEMIDE 80 MG TABLET PO SCH (08:41)
[2018-07-04] MEDS: CYANOCOBALAMIN 500 MCG TABLET PO SCH (08:41)
[2018-07-04] MEDS: ceFAZolin 2,000 MG in PREMIX 1 EACH IV SCH ×2 (08:42→17:09)
[2018-07-04 09:29] LABS: Basophils % 0.1 % (0.0-0.8); Hematocrit 35.7 VOL% (35.7-47.0); Hemoglobin 11.3 GM/DL (12.0-16.0); Immature Granulocytes % 0.8 %; Immature Granulocytes Absolute 0.07 #; Lymphocytes # 0.8 10*3/uL (1.4-4.0); Lymphocytes % 9.2 % (21.3-54.2); Mean Corpuscular HGB Conc 31.7 GM/DL (32-36); Mean Corpuscular Hemoglobin 33 PG (27-34); Mean Corpuscular Volume 103.5 FL (87-102); Mean Platelet Volume 10.6 FL (9.6-12.0); Monocytes # 0.4 10*3/uL (0.11-0.8); Monocytes % 4.3 % (1.7-12.7); Neutrophils # 7.8 10*3/uL (1.4-7.4); Neutrophils % 85.6 % (38.7-73.9); Platelet Count 161 T/CUMM (130-400); Red Blood Count 3.45 MC/CUMM (3.8-5.5); Red Cell Distribution Width 13.8 % (9.3-17.3); White Blood Count 9.1 T/CUMM (4-12)
[2018-07-04 09:54] LABS: Calcium 9.2 MG/DL (8.5-10.1); Osmolality,Calculated 292.3 MOS/KG (273-304); Potassium 5.4 MMOL/L (3.5-5.1)
[2018-07-04] MEDS: BUDESONIDE/FORMOTEROL 160-4.5 INHALER 6 GM INH SCH (10:47)
[2018-07-04] MEDS ORDERED: DILTIAZEM 60 MG TABLET PO SCH (16:27)
[2018-07-04] MEDS: DILTIAZEM 60 MG TABLET PO SCH ×2 (17:41→20:38)
[2018-07-04] MEDS: CHOLECALCIFEROL 1,000 UNIT TABLET PO SCH (20:37)
[2018-07-04] MEDS: ROSUVASTATIN 20 MG TABLET PO SCH (20:37)
[2018-07-04] MEDS: ASPIRIN EC 81 MG TABLET PO SCH (20:38)
[2018-07-04] MEDS: rOPINIRole 1 MG TABLET PO SCH (20:38)
[2018-07-05] MEDS: ceFAZolin 2,000 MG in PREMIX 1 EACH IV SCH ×4 (00:52→23:50)
[2018-07-05] MEDS: ALBUTEROL 1.25 MG/3 ML NEB RESP TX SCH ×6 (02:50→22:41)
[2018-07-05 05:07] LABS: Alanine Aminotransferase 19 U/L (13-56); Albumin 2.7 G/DL (3.4-5.0); Alkaline Phosphatase 131 U/L (45-117); Aspartate Amino Transferase 12 U/L (0-37); Bilirubin,Total < 0.39 MG/DL (0.2-1.0); Blood Urea Nitrogen 36 MG/DL (7-18); Calcium 9.2 MG/DL (8.5-10.1); Glucose 168 MG/DL (74-106); Osmolality,Calculated 286.7 MOS/KG (273-304); Potassium 4.3 MMOL/L (3.5-5.1); Sodium 138 MMOL/L (136-145); Total Protein 6.5 G/DL (6.4-8.3)
[2018-07-05] MEDS: LEVOTHYROXINE 50 MCG TABLET PO SCH (05:43)
[2018-07-05] MEDS: DILTIAZEM 60 MG TABLET PO SCH ×2 (09:16→12:08)
[2018-07-05] MEDS: THEOPHYLLINE ER 300 MG TABLET PO SCH (09:16)
[2018-07-05] MEDS: GABAPENTIN 300 MG CAPSULE PO SCH ×3 (09:17→22:00)
[2018-07-05] MEDS: MULTIVITAMIN (CENTRUM) TABLET PO SCH (09:17)
[2018-07-05] MEDS: methylPREDNISolone 4 MG TABLET PO SCH ×3 (09:17→22:00)
[2018-07-05] MEDS: TOLTERODINE LA 4 MG CAPSULE PO SCH (09:18)
[2018-07-05] MEDS: busPIRone 5 MG TABLET PO SCH ×2 (09:18→22:00)
[2018-07-05] MEDS: amLODIPine 2.5 MG TABLET PO SCH ×2 (09:19→22:00)
[2018-07-05] MEDS: CYANOCOBALAMIN 500 MCG TABLET PO SCH (09:19)
[2018-07-05] MEDS: CETIRIZINE 10 MG TABLET PO SCH (09:19)
[2018-07-05] MEDS: PANTOPRAZOLE 40 MG TABLET PO SCH ×3 (09:20→22:00)
[2018-07-05] MEDS: CARVEDILOL 6.25 MG TABLET PO SCH ×2 (09:24→22:00)
[2018-07-05] MEDS: FUROSEMIDE 80 MG TABLET PO SCH (09:25)
[2018-07-05] MEDS: BUDESONIDE/FORMOTEROL 160-4.5 INHALER 6 GM INH SCH (10:49)
[2018-07-05] MEDS: DILTIAZEM CD 240 MG CAPSULE PO SCH (16:42)
[2018-07-05] MEDS: rOPINIRole 1 MG TABLET PO SCH (22:00)
[2018-07-05] MEDS: CHOLECALCIFEROL 1,000 UNIT TABLET PO SCH (22:00)
[2018-07-05] MEDS: ROSUVASTATIN 20 MG TABLET PO SCH (22:00)
[2018-07-05] MEDS: ASPIRIN EC 81 MG TABLET PO SCH (22:00)
[2018-07-06] MEDS: ACETAMINOPHEN 325 MG TABLET PO PRN ×2 (01:31→12:10)
[2018-07-06] MEDS: ALBUTEROL 1.25 MG/3 ML NEB RESP TX SCH ×6 (02:16→23:21)
[2018-07-06] MEDS: LEVOTHYROXINE 50 MCG TABLET PO SCH (06:08)
[2018-07-06 09:16] LABS: Calcium 9.1 MG/DL (8.5-10.1); Osmolality,Calculated 286.8 MOS/KG (273-304); Potassium 4.6 MMOL/L (3.5-5.1)
[2018-07-06] MEDS: ceFAZolin 2,000 MG in PREMIX 1 EACH IV SCH ×2 (09:30→15:49)
[2018-07-06] MEDS: methylPREDNISolone 4 MG TABLET PO SCH ×2 (09:31→21:17)
[2018-07-06] MEDS: GABAPENTIN 300 MG CAPSULE PO SCH ×3 (09:31→21:17)
[2018-07-06] MEDS: CYANOCOBALAMIN 500 MCG TABLET PO SCH (09:31)
[2018-07-06] MEDS: CETIRIZINE 10 MG TABLET PO SCH (09:31)
[2018-07-06] MEDS: MULTIVITAMIN (CENTRUM) TABLET PO SCH (09:32)
[2018-07-06] MEDS: TOLTERODINE LA 4 MG CAPSULE PO SCH (09:32)
[2018-07-06] MEDS: busPIRone 5 MG TABLET PO SCH ×2 (09:32→21:17)
[2018-07-06] MEDS: THEOPHYLLINE ER 300 MG TABLET PO SCH (09:32)
[2018-07-06] MEDS: CARVEDILOL 6.25 MG TABLET PO SCH ×2 (09:32→21:17)
[2018-07-06] MEDS: amLODIPine 2.5 MG TABLET PO SCH ×2 (09:32→21:17)
[2018-07-06] MEDS: FUROSEMIDE 80 MG TABLET PO SCH (09:32)
[2018-07-06] MEDS: PANTOPRAZOLE 40 MG TABLET PO SCH ×3 (09:32→21:17)
[2018-07-06] MEDS: DILTIAZEM CD 240 MG CAPSULE PO SCH (09:33)
[2018-07-06] MEDS: BUDESONIDE/FORMOTEROL 160-4.5 INHALER 6 GM INH SCH (09:36)
[2018-07-06] MEDS: traMADol 50 MG TABLET PO PRN (16:32)
[2018-07-06] MEDS ORDERED: METOPROLOL TARTRATE 25 MG TABLET PO ONE (20:23)
[2018-07-06] MEDS: CHOLECALCIFEROL 1,000 UNIT TABLET PO SCH (21:16)
[2018-07-06] MEDS: ROSUVASTATIN 20 MG TABLET PO SCH (21:16)
[2018-07-06] MEDS: ASPIRIN EC 81 MG TABLET PO SCH (21:16)
[2018-07-06] MEDS: rOPINIRole 1 MG TABLET PO SCH (21:17)
[2018-07-07] MEDS: ALBUTEROL 1.25 MG/3 ML NEB RESP TX SCH ×5 (02:53→19:55)
[2018-07-07] MEDS: LEVOTHYROXINE 50 MCG TABLET PO SCH (06:08)
[2018-07-07] MEDS: CYANOCOBALAMIN 500 MCG TABLET PO SCH (08:42)
[2018-07-07] MEDS: MULTIVITAMIN (CENTRUM) TABLET PO SCH (08:42)
[2018-07-07] MEDS: TOLTERODINE LA 4 MG CAPSULE PO SCH (08:42)
[2018-07-07] MEDS: CARVEDILOL 6.25 MG TABLET PO SCH ×2 (08:43→22:15)
[2018-07-07] MEDS: DILTIAZEM CD 240 MG CAPSULE PO SCH (08:43)
[2018-07-07] MEDS: GABAPENTIN 300 MG CAPSULE PO SCH ×3 (08:43→22:17)
[2018-07-07] MEDS: CETIRIZINE 10 MG TABLET PO SCH (08:43)
[2018-07-07] MEDS: FUROSEMIDE 80 MG TABLET PO SCH (08:43)
[2018-07-07] MEDS: PANTOPRAZOLE 40 MG TABLET PO SCH ×3 (08:43→22:18)
[2018-07-07] MEDS: busPIRone 5 MG TABLET PO SCH ×2 (08:43→22:13)
[2018-07-07] MEDS: THEOPHYLLINE ER 300 MG TABLET PO SCH (08:43)
[2018-07-07] MEDS: amLODIPine 2.5 MG TABLET PO SCH ×2 (08:43→22:17)
[2018-07-07] MEDS: BUDESONIDE/FORMOTEROL 160-4.5 INHALER 6 GM INH SCH (08:44)
[2018-07-07] MEDS: ceFAZolin 2,000 MG in PREMIX 1 EACH IV SCH ×3 (08:44→15:25)
[2018-07-07] MEDS: ASPIRIN EC 81 MG TABLET PO SCH (22:13)
[2018-07-07] MEDS: ROSUVASTATIN 20 MG TABLET PO SCH (22:16)
[2018-07-07] MEDS: rOPINIRole 1 MG TABLET PO SCH (22:18)
[2018-07-07] MEDS: CHOLECALCIFEROL 1,000 UNIT TABLET PO SCH (22:19)
[2018-07-08] MEDS: ALBUTEROL 1.25 MG/3 ML NEB RESP TX SCH ×7 (00:17→23:48)
[2018-07-08] MEDS: ceFAZolin 2,000 MG in PREMIX 1 EACH IV SCH ×3 (01:58→15:13)
[2018-07-08] MEDS: LEVOTHYROXINE 50 MCG TABLET PO SCH (06:05)
[2018-07-08] MEDS: busPIRone 5 MG TABLET PO SCH (09:24)
[2018-07-08] MEDS: TOLTERODINE LA 4 MG CAPSULE PO SCH (09:25)
[2018-07-08] MEDS: CYANOCOBALAMIN 500 MCG TABLET PO SCH (09:25)
[2018-07-08] MEDS: DILTIAZEM CD 240 MG CAPSULE PO SCH (09:26)
[2018-07-08] MEDS: FUROSEMIDE 80 MG TABLET PO SCH (09:26)
[2018-07-08] MEDS: THEOPHYLLINE ER 300 MG TABLET PO SCH (09:26)
[2018-07-08] MEDS: CETIRIZINE 10 MG TABLET PO SCH (09:27)
[2018-07-08] MEDS: GABAPENTIN 300 MG CAPSULE PO SCH ×3 (09:27→21:13)
[2018-07-08] MEDS: MULTIVITAMIN (CENTRUM) TABLET PO SCH (09:27)
[2018-07-08] MEDS: CARVEDILOL 6.25 MG TABLET PO SCH ×2 (09:27→21:11)
[2018-07-08] MEDS: BUDESONIDE/FORMOTEROL 160-4.5 INHALER 6 GM INH SCH (09:28)
[2018-07-08] MEDS: PANTOPRAZOLE 40 MG TABLET PO SCH ×3 (09:28→21:12)
[2018-07-08] MEDS: amLODIPine 2.5 MG TABLET PO SCH ×2 (09:28→21:12)
[2018-07-08] MEDS ORDERED: ENOXAPARIN 80 MG/0.8 ML SYRINGE SUBCUT ONE (21:00)
[2018-07-08] MEDS ORDERED: CARVEDILOL 6.25 MG TABLET PO ONE (21:00)
[2018-07-08] MEDS: ASPIRIN EC 81 MG TABLET PO SCH (21:12)
[2018-07-08] MEDS: CHOLECALCIFEROL 1,000 UNIT TABLET PO SCH (21:12)
[2018-07-08] MEDS: rOPINIRole 1 MG TABLET PO SCH (21:12)
[2018-07-08] MEDS: ROSUVASTATIN 20 MG TABLET PO SCH (21:12)
[2018-07-09] MEDS: busPIRone 5 MG TABLET PO SCH ×3 (00:35→22:00)
[2018-07-09] MEDS: diphenhydrAMINE CAP 25 MG CAPSULE PO PRN ×2 (00:37→21:53)
[2018-07-09] MEDS: ceFAZolin 2,000 MG in PREMIX 1 EACH IV SCH ×3 (01:30→15:13)
[2018-07-09] MEDS: ALBUTEROL 1.25 MG/3 ML NEB RESP TX SCH ×5 (03:20→19:31)
[2018-07-09 06:13] LABS: Calcium 9.4 MG/DL (8.5-10.1); Osmolality,Calculated 289.5 MOS/KG (273-304); Potassium 2.7 MMOL/L (3.5-5.1)
[2018-07-09] MEDS: LEVOTHYROXINE 50 MCG TABLET PO SCH (06:40)
[2018-07-09] MEDS ORDERED: POTASSIUM CHLORIDE RIDER 10 MEQ in PREMIX 1 EACH IV PRN (07:32)
[2018-07-09] MEDS ORDERED: POTASSIUM CHLORIDE 20 MEQ TABLET PO PRN (07:32)
[2018-07-09] MEDS: THEOPHYLLINE ER 300 MG TABLET PO SCH (07:59)
[2018-07-09] MEDS: PANTOPRAZOLE 40 MG TABLET PO SCH ×3 (08:00→21:54)
[2018-07-09] MEDS: TOLTERODINE LA 4 MG CAPSULE PO SCH (08:00)
[2018-07-09] MEDS: amLODIPine 2.5 MG TABLET PO SCH ×2 (08:00→21:54)
[2018-07-09] MEDS: MULTIVITAMIN (CENTRUM) TABLET PO SCH (08:00)
[2018-07-09] MEDS: DILTIAZEM CD 240 MG CAPSULE PO SCH (08:00)
[2018-07-09] MEDS: CARVEDILOL 6.25 MG TABLET PO SCH (08:01)
[2018-07-09] MEDS: CETIRIZINE 10 MG TABLET PO SCH (08:01)
[2018-07-09] MEDS: POTASSIUM CHLORIDE 20 MEQ TABLET PO PRN ×4 (08:01→15:13)
[2018-07-09] MEDS: FUROSEMIDE 80 MG TABLET PO SCH (08:03)
[2018-07-09] MEDS: CYANOCOBALAMIN 500 MCG TABLET PO SCH (08:03)
[2018-07-09] MEDS: GABAPENTIN 300 MG CAPSULE PO SCH ×3 (08:04→21:54)
[2018-07-09] MEDS: BUDESONIDE/FORMOTEROL 160-4.5 INHALER 6 GM INH SCH (09:27)
[2018-07-09] MEDS: POTASSIUM CHLORIDE 20 MEQ TABLET PO SCH ×2 (13:24→21:53)
[2018-07-09] MEDS: rOPINIRole 1 MG TABLET PO SCH (21:53)
[2018-07-09] MEDS: ROSUVASTATIN 20 MG TABLET PO SCH (21:53)
[2018-07-09] MEDS: ASPIRIN EC 81 MG TABLET PO SCH (21:53)
[2018-07-09] MEDS: CARVEDILOL 25 MG TABLET PO SCH (21:54)
[2018-07-09] MEDS: CHOLECALCIFEROL 1,000 UNIT TABLET PO SCH (21:54)
[2018-07-10] MEDS: ALBUTEROL 1.25 MG/3 ML NEB RESP TX SCH ×5 (00:23→13:47)
[2018-07-10] MEDS: ceFAZolin 2,000 MG in PREMIX 1 EACH IV SCH ×2 (02:25→08:03)
[2018-07-10 06:26] LABS: Albumin 2.7 G/DL (3.4-5.0); Bilirubin,Total 0.8 MG/DL (0.2-1.0); Calcium 8.8 MG/DL (8.5-10.1); Osmolality,Calculated 287.3 MOS/KG (273-304); Potassium 3.4 MMOL/L (3.5-5.1); Total Protein 6.1 G/DL (6.4-8.3)
[2018-07-10] MEDS: LEVOTHYROXINE 50 MCG TABLET PO SCH (06:50)
[2018-07-10] MEDS: busPIRone 5 MG TABLET PO SCH (08:00)
[2018-07-10] MEDS: POTASSIUM CHLORIDE 20 MEQ TABLET PO SCH (08:00)
[2018-07-10] MEDS: MULTIVITAMIN (CENTRUM) TABLET PO SCH (08:01)
[2018-07-10] MEDS: DILTIAZEM CD 240 MG CAPSULE PO SCH (08:01)
[2018-07-10] MEDS: CYANOCOBALAMIN 500 MCG TABLET PO SCH (08:01)
[2018-07-10] MEDS: amLODIPine 2.5 MG TABLET PO SCH (08:01)
[2018-07-10] MEDS: TOLTERODINE LA 4 MG CAPSULE PO SCH (08:02)
[2018-07-10] MEDS: PANTOPRAZOLE 40 MG TABLET PO SCH ×2 (08:02→08:04)
[2018-07-10] MEDS: GABAPENTIN 300 MG CAPSULE PO SCH (08:02)
[2018-07-10] MEDS: THEOPHYLLINE ER 300 MG TABLET PO SCH (08:02)
[2018-07-10] MEDS: FUROSEMIDE 80 MG TABLET PO SCH (08:03)
[2018-07-10] MEDS: CETIRIZINE 10 MG TABLET PO SCH (08:03)
[2018-07-10] MEDS: CARVEDILOL 25 MG TABLET PO SCH (08:03)
[2018-07-10] MEDS: BUDESONIDE/FORMOTEROL 160-4.5 INHALER 6 GM INH SCH (09:08)
[2018-07-10 11:35] VITALS: BP 101/67
== END 2018-07-10 14:35 | disposition swing bed (61) | DRG 478 ==
LOC: N.ED 09:43 → N.EDINP 14:06 → SUATTDRO 14:06 → N.TELEN 15:11
PROVIDERS: ADMIT Internal Medicine; ATTEND Internal Medicine Nephrology

== ENCOUNTER 2018-08-06 13:24 | Inpatient (IN) ==
[2018-08-06] MEDS ORDERED: ONDANSETRON 4 MG/2 ML VIAL IV STA (14:36)
[2018-08-06] MEDS ORDERED: cefTRIAXone 1,000 MG in SODIUM CHLORIDE 0.9% 100 ML IV STA (14:36)
[2018-08-06] MEDS ORDERED: methylPREDNISolone SOD SUC 125 MG/2 ML VIAL IV STA (14:36)
[2018-08-06] MEDS ORDERED: FUROSEMIDE 100 MG/10 ML VIAL IV STA (14:36)
[2018-08-06] MEDS ORDERED: ALBUTEROL NEB SOLN 5 MG/ML 20 ML/BOTTLE RESP TX SCH (15:00)
[2018-08-06] MEDS ORDERED: FUROSEMIDE 40 MG/4 ML VIAL ONE (15:11)
[2018-08-06 15:15] LABS: Basophils % 0.1 % (0.0-0.8); Eosinophils # 0.1 10*3/uL (0.0-0.87); Eosinophils % 1.3 % (0.00-10.9); Hematocrit 34.2 VOL% (35.7-47.0); Hemoglobin 10.8 GM/DL (12.0-16.0); Immature Granulocytes % 0.3 %; Immature Granulocytes Absolute 0.02 #; Lymphocytes # 0.9 10*3/uL (1.4-4.0); Lymphocytes % 13.4 % (21.3-54.2); Mean Corpuscular HGB Conc 31.6 GM/DL (32-36); Mean Corpuscular Hemoglobin 31 PG (27-34); Mean Platelet Volume 9.8 FL (9.6-12.0); Monocytes # 0.8 10*3/uL (0.11-0.8); Monocytes % 11.2 % (1.7-12.7); Neutrophils # 5.1 10*3/uL (1.4-7.4); Neutrophils % 73.7 % (38.7-73.9); Platelet Count 142 T/CUMM (130-400); Red Blood Count 3.49 MC/CUMM (3.8-5.5); Red Cell Distribution Width 13.8 % (9.3-17.3); White Blood Count 6.9 T/CUMM (4-12)
[2018-08-06 15:26] LABS: PT Patient Result 10.7 SECS
[2018-08-06 15:52] LABS: Albumin 3.5 G/DL (3.4-5.0); Bilirubin,Total 0.7 MG/DL (0.2-1.0); Calcium 9.2 MG/DL (8.5-10.1); Osmolality,Calculated 276.7 MOS/KG (273-304)
[2018-08-06 15:59] LABS: Apearance,Urine CLEAR (Clear); Bilirubin,Urine Negative (Negative); Blood, Urine Negative (Negative); Glucose,Urine (UA) Negative (Negative); Hyaline Casts,Urine 4 /LPF (0-3); Ketones,Urine Negative (Negative); Mucus,Urine Occasional /LPF (Occasional); Nitrite,Urine Negative (Negative); Protein,Urine Negative; RBC,Urine <1 /HPF (0-4); Squamous Epithelial Cell,Urine Occasional /HPF (0-10); Urine Color Yellow (Yellow); Urine Specific Gravity 1.009 (1.001-1.035); Urine Urobilinogen < 2.0 EU/DL (0.2-1.0); WBC,Urine 1 /HPF (0-6)
[2018-08-06 16:10] LABS: Potassium 2.3 MMOL/L (3.5-5.1)
[2018-08-06] MEDS ORDERED: POTASSIUM CHLORIDE 20 MEQ TABLET PO STA (16:14)
[2018-08-06] MEDS ORDERED: ACETAMINOPHEN 325 MG TABLET PO PRN (16:37)
[2018-08-06] MEDS ORDERED: LEVOFLOXACIN INJ 750 MG in PREMIX 1 EACH IV STA (16:41)
[2018-08-06] MEDS ORDERED: POTASSIUM CHLORIDE RIDER 10 MEQ in PREMIX 1 EACH IV PRN (16:41)
[2018-08-06] MEDS ORDERED: ALBUTEROL 2.5 MG/3 ML NEB RESP TX PRN (16:43)
[2018-08-06] MEDS ORDERED: DOCUSATE SODIUM 100 MG CAPSULE PO PRN (16:43)
[2018-08-06] MEDS ORDERED: hydrOXYzine HCL 25 MG TABLET PO PRN (16:43)
[2018-08-06] MEDS: methylPREDNISolone SOD SUC 40 MG/1 ML VIAL IV SCH (18:05)
[2018-08-06] MEDS: ALBUTEROL/IPRATROPIUM 3 ML NEB RESP TX SCH (19:03)
[2018-08-06] MEDS: BUDESONIDE 0.5 MG/2 ML NEB RESP TX SCH (19:03)
[2018-08-06] MEDS: ARFORMOTEROL 15 MCG/2 ML NEB RESP TX SCH (19:03)
[2018-08-06] MEDS ORDERED: DILTIAZEM 30 MG TABLET PO ONE (19:59)
[2018-08-06] MEDS ORDERED: FLUCONAZOLE 200 MG TABLET PO ONE (20:00)
[2018-08-06 20:28] LABS: Creatinine,Urine Random 28 MG/DL; Potassium,Urine Random 54 MMOL/L
[2018-08-06] MEDS: SODIUM CHLOR 0.9% KCL 40 MEQ 40 MEQ/1,000 ML BAG IV SCH (21:35)
[2018-08-06] MEDS: ASPIRIN EC 81 MG TABLET PO SCH (21:37)
[2018-08-06] MEDS: CARVEDILOL 12.5 MG TABLET PO SCH (21:37)
[2018-08-06] MEDS: ROSUVASTATIN 20 MG TABLET PO SCH (21:37)
[2018-08-06] MEDS: NYSTATIN 500,000 UNIT/5 ML UDCUP SWISH/SWAL SCH (21:37)
[2018-08-06] MEDS: busPIRone 5 MG TABLET PO SCH (21:37)
[2018-08-06] MEDS: GABAPENTIN 300 MG CAPSULE PO SCH (21:37)
[2018-08-06] MEDS: MONTELUKAST 10 MG TABLET PO SCH (21:37)
[2018-08-06] MEDS: PANTOPRAZOLE 40 MG TABLET PO SCH (21:38)
[2018-08-06] MEDS: SPIRONOLACTONE 25 MG TABLET PO SCH (21:39)
[2018-08-06] MEDS: MAGNESIUM OXIDE 400 MG TABLET PO SCH (21:39)
[2018-08-06] MEDS: CHOLECALCIFEROL 1,000 UNIT TABLET PO SCH (21:39)
[2018-08-06] MEDS: rOPINIRole 1 MG TABLET PO SCH (21:39)
[2018-08-06] MEDS: POTASSIUM CHLORIDE 20 MEQ TABLET PO SCH (21:41)
[2018-08-07] MEDS: methylPREDNISolone SOD SUC 40 MG/1 ML VIAL IV SCH ×3 (00:46→17:32)
[2018-08-07] MEDS: POTASSIUM CHLORIDE 20 MEQ TABLET PO SCH ×6 (00:46→21:08)
[2018-08-07] MEDS: ALBUTEROL/IPRATROPIUM 3 ML NEB RESP TX SCH ×3 (01:25→13:17)
[2018-08-07 05:14] LABS: Hematocrit 30.7 VOL% (35.7-47.0); Hemoglobin 9.7 GM/DL (12.0-16.0); Immature Granulocytes % 0.7 %; Immature Granulocytes Absolute 0.03 #; Lymphocytes # 0.5 10*3/uL (1.4-4.0); Lymphocytes % 11.9 % (21.3-54.2); Mean Corpuscular HGB Conc 31.6 GM/DL (32-36); Mean Corpuscular Hemoglobin 31 PG (27-34); Mean Corpuscular Volume 98.4 FL (87-102); Mean Platelet Volume 10.8 FL (9.6-12.0); Monocytes # 0.1 10*3/uL (0.11-0.8); Monocytes % 2.9 % (1.7-12.7); Neutrophils # 3.5 10*3/uL (1.4-7.4); Neutrophils % 84.5 % (38.7-73.9); Platelet Count 128 T/CUMM (130-400); Red Blood Count 3.12 MC/CUMM (3.8-5.5); Red Cell Distribution Width 13.7 % (9.3-17.3); White Blood Count 4.1 T/CUMM (4-12)
[2018-08-07 05:36] LABS: Albumin 2.9 G/DL (3.4-5.0); Bilirubin,Total 0.8 MG/DL (0.2-1.0); Calcium 9.1 MG/DL (8.5-10.1); Osmolality,Calculated 277.9 MOS/KG (273-304); Potassium 3.7 MMOL/L (3.5-5.1); Risk Ratio 1.71; Thyroid Stimulating Hormone 0.775 uIU/ml (0.358-3.74); Total Protein 6.4 G/DL (6.4-8.3); VLDL CHOLESTEROL 11.8 MG/DL
[2018-08-07] MEDS: LEVOTHYROXINE 50 MCG TABLET PO SCH (05:38)
[2018-08-07] MEDS: BUDESONIDE 0.5 MG/2 ML NEB RESP TX SCH ×2 (07:23→19:20)
[2018-08-07] MEDS: ARFORMOTEROL 15 MCG/2 ML NEB RESP TX SCH ×2 (07:23→19:20)
[2018-08-07] MEDS ORDERED: BUDESONIDE/FORMOTEROL 160-4.5 INHALER 6 GM INH SCH (09:00)
[2018-08-07] MEDS ORDERED: amLODIPine 5 MG TABLET PO SCH (09:00)
[2018-08-07] MEDS ORDERED: FUROSEMIDE 40 MG/4 ML VIAL IV ONE ×2 (09:38→10:15)
[2018-08-07] MEDS: busPIRone 5 MG TABLET PO SCH ×2 (09:39→21:08)
[2018-08-07] MEDS: MULTIVITAMIN (OCUVITE) TABLET PO SCH (09:39)
[2018-08-07] MEDS: DILTIAZEM CD 240 MG CAPSULE PO SCH (09:39)
[2018-08-07] MEDS: NYSTATIN 500,000 UNIT/5 ML UDCUP SWISH/SWAL SCH ×3 (09:40→17:32)
[2018-08-07] MEDS: CYANOCOBALAMIN 500 MCG TABLET PO SCH (09:40)
[2018-08-07] MEDS: SPIRONOLACTONE 25 MG TABLET PO SCH ×2 (09:40→21:08)
[2018-08-07] MEDS: CARVEDILOL 12.5 MG TABLET PO SCH ×2 (09:40→21:08)
[2018-08-07] MEDS: CETIRIZINE 10 MG TABLET PO SCH (09:40)
[2018-08-07] MEDS: MONTELUKAST 10 MG TABLET PO SCH ×2 (09:40→21:08)
[2018-08-07] MEDS: TOLTERODINE LA 4 MG CAPSULE PO SCH (09:40)
[2018-08-07] MEDS: PANTOPRAZOLE 40 MG TABLET PO SCH ×2 (09:41→21:08)
[2018-08-07] MEDS: GABAPENTIN 300 MG CAPSULE PO SCH ×3 (09:41→21:08)
[2018-08-07] MEDS: THEOPHYLLINE ER 300 MG TABLET PO SCH (09:41)
[2018-08-07] MEDS ORDERED: ALBUMIN 5% 25 GM in PREMIX 1 EACH IV ONE (10:15)
[2018-08-07] MEDS: SODIUM CHLOR 0.9% KCL 40 MEQ 40 MEQ/1,000 ML BAG IV SCH (12:30)
[2018-08-07] MEDS ORDERED: FUROSEMIDE 40 MG/4 ML VIAL IV SCH (16:00)
[2018-08-07] MEDS ORDERED: OXYMETAZOLINE 0.05% NASAL SPRAY 15 ML BOTTLE BOTH NARES PRN (16:11)
[2018-08-07] MEDS ORDERED: ALBUTEROL 1.25 MG/3 ML NEB RESP TX PRN (16:52)
[2018-08-07] MEDS ORDERED: ALBUTEROL 1.25 MG/3 ML NEB RESP TX SCH (19:00)
[2018-08-07] MEDS: LEVALBUTEROL 1.25 MG/3 ML NEB RESP TX SCH (19:20)
[2018-08-07] MEDS: rOPINIRole 1 MG TABLET PO SCH (21:08)
[2018-08-07] MEDS: ROSUVASTATIN 20 MG TABLET PO SCH (21:08)
[2018-08-07] MEDS: ASPIRIN EC 81 MG TABLET PO SCH (21:08)
[2018-08-07] MEDS: MAGNESIUM OXIDE 400 MG TABLET PO SCH (21:08)
[2018-08-07] MEDS: CHOLECALCIFEROL 1,000 UNIT TABLET PO SCH (21:08)
[2018-08-07] MEDS ORDERED: LORazepam 0.5 MG TABLET PO ONE (22:58)
[2018-08-08] MEDS: LEVALBUTEROL 1.25 MG/3 ML NEB RESP TX SCH ×7 (00:46→23:17)
[2018-08-08] MEDS: NYSTATIN 500,000 UNIT/5 ML UDCUP SWISH/SWAL SCH ×5 (02:06→23:31)
[2018-08-08] MEDS: methylPREDNISolone SOD SUC 40 MG/1 ML VIAL IV SCH ×3 (02:09→20:49)
[2018-08-08] MEDS ORDERED: LEVALBUTEROL 1.25 MG/3 ML NEB RESP TX ONE (04:55)
[2018-08-08 06:26] LABS: Basophils % 0.1 % (0.0-0.8); Hematocrit 30.4 VOL% (35.7-47.0); Hemoglobin 9.3 GM/DL (12.0-16.0); Immature Granulocytes % 0.5 %; Immature Granulocytes Absolute 0.05 #; Lymphocytes # 0.6 10*3/uL (1.4-4.0); Mean Corpuscular HGB Conc 30.6 GM/DL (32-36); Mean Corpuscular Hemoglobin 31 PG (27-34); Mean Platelet Volume 10.9 FL (9.6-12.0); Monocytes # 0.3 10*3/uL (0.11-0.8); Monocytes % 3.4 % (1.7-12.7); Neutrophils # 8.7 10*3/uL (1.4-7.4); Platelet Count 130 T/CUMM (130-400); Red Blood Count 3.04 MC/CUMM (3.8-5.5); Red Cell Distribution Width 14.1 % (9.3-17.3); White Blood Count 9.7 T/CUMM (4-12)
[2018-08-08] MEDS: SODIUM CHLOR 0.9% KCL 40 MEQ 40 MEQ/1,000 ML BAG IV SCH (06:53)
[2018-08-08] MEDS: BUDESONIDE 0.5 MG/2 ML NEB RESP TX SCH ×2 (07:10→20:07)
[2018-08-08 08:32] LABS: Osmolality,Calculated 288.8 MOS/KG (273-304); Potassium 2.9 MMOL/L (3.5-5.1)
[2018-08-08] MEDS: LEVOTHYROXINE 50 MCG TABLET PO SCH (08:44)
[2018-08-08] MEDS: DILTIAZEM CD 240 MG CAPSULE PO SCH (08:47)
[2018-08-08] MEDS: CETIRIZINE 10 MG TABLET PO SCH (08:47)
[2018-08-08] MEDS: SPIRONOLACTONE 25 MG TABLET PO SCH ×2 (08:48→20:42)
[2018-08-08] MEDS: CYANOCOBALAMIN 500 MCG TABLET PO SCH (08:48)
[2018-08-08] MEDS: busPIRone 5 MG TABLET PO SCH ×2 (08:48→20:42)
[2018-08-08] MEDS: MULTIVITAMIN (OCUVITE) TABLET PO SCH (08:48)
[2018-08-08] MEDS: CARVEDILOL 12.5 MG TABLET PO SCH ×2 (08:48→20:43)
[2018-08-08] MEDS: MONTELUKAST 10 MG TABLET PO SCH ×2 (08:48→20:43)
[2018-08-08] MEDS: POTASSIUM CHLORIDE 20 MEQ TABLET PO SCH ×3 (08:48→20:43)
[2018-08-08] MEDS: TOLTERODINE LA 4 MG CAPSULE PO SCH (08:48)
[2018-08-08] MEDS: THEOPHYLLINE ER 300 MG TABLET PO SCH (08:48)
[2018-08-08] MEDS: PANTOPRAZOLE 40 MG TABLET PO SCH ×2 (08:48→20:43)
[2018-08-08] MEDS: CLORAZEPATE 3.75 MG TABLET PO SCH ×3 (08:53→20:42)
[2018-08-08] MEDS: GABAPENTIN 300 MG CAPSULE PO SCH ×3 (08:54→23:31)
[2018-08-08] MEDS ORDERED: ALBUMIN 5% 12.5 GM in PREMIX 1 EACH IV ONE ×2 (09:03→15:00)
[2018-08-08] MEDS ORDERED: FUROSEMIDE 40 MG/4 ML VIAL IV ONE ×2 (09:04→16:00)
[2018-08-08] MEDS ORDERED: POTASSIUM CHLORIDE 20 MEQ TABLET PO ONE (09:07)
[2018-08-08] MEDS ORDERED: GLUCAGON 1 MG VIAL IM PRN (09:10)
[2018-08-08] MEDS ORDERED: DEXTROSE 50% 25 GM/50 ML VIAL IV PRN (09:10)
[2018-08-08 09:42] LABS: Folate > 24.0 NG/ML (5.4-24.0); Vitamin B12 > 2000 PG/ML (211-911)
[2018-08-08] MEDS: ARFORMOTEROL 15 MCG/2 ML NEB RESP TX SCH (10:09)
[2018-08-08] MEDS: INSULIN LISPRO 100 UNIT/ML SUBCUT SCH ×2 (12:13→16:08)
[2018-08-08 12:59] LABS: Osmolality, Serum 293 mOsm/kg (275 - 295)
[2018-08-08 13:34] LABS: Osmolality, Urine 317 mOsm/kg (150 - 1150)
[2018-08-08] MEDS ORDERED: MORPHINE 4 MG/1 ML VIAL ONE (14:58)
[2018-08-08] MEDS ORDERED: MORPHINE 4 MG/1 ML VIAL IV ONE (14:59)
[2018-08-08] MEDS: rOPINIRole 1 MG TABLET PO SCH (20:42)
[2018-08-08] MEDS: ROSUVASTATIN 20 MG TABLET PO SCH (20:43)
[2018-08-08] MEDS: CHOLECALCIFEROL 1,000 UNIT TABLET PO SCH (20:43)
[2018-08-08] MEDS: MAGNESIUM OXIDE 400 MG TABLET PO SCH (20:45)
[2018-08-08] MEDS: ASPIRIN EC 81 MG TABLET PO SCH (20:46)
[2018-08-08] MEDS ORDERED: LEVOFLOXACIN INJ 750 MG in PREMIX 1 EACH IV SCH (21:00)
[2018-08-09] MEDS: LEVALBUTEROL 1.25 MG/3 ML NEB RESP TX SCH ×5 (02:55→19:38)
[2018-08-09] MEDS: INSULIN LISPRO 100 UNIT/ML SUBCUT SCH ×5 (03:05→21:40)
[2018-08-09 04:36] LABS: Hematocrit 29.7 VOL% (35.7-47.0); Hemoglobin 9.1 GM/DL (12.0-16.0); Immature Granulocytes % 0.9 %; Immature Granulocytes Absolute 0.07 #; Lymphocytes # 0.5 10*3/uL (1.4-4.0); Lymphocytes % 5.9 % (21.3-54.2); Mean Corpuscular HGB Conc 30.6 GM/DL (32-36); Mean Corpuscular Hemoglobin 31 PG (27-34); Mean Platelet Volume 10.4 FL (9.6-12.0); Monocytes # 0.3 10*3/uL (0.11-0.8); Monocytes % 4.3 % (1.7-12.7); Neutrophils # 6.8 10*3/uL (1.4-7.4); Neutrophils % 88.9 % (38.7-73.9); Platelet Count 106 T/CUMM (130-400); Red Blood Count 2.94 MC/CUMM (3.8-5.5); Red Cell Distribution Width 14.1 % (9.3-17.3); White Blood Count 7.7 T/CUMM (4-12)
[2018-08-09 05:04] LABS: Blood Urea Nitrogen 42 MG/DL (7-18); Calcium 8.8 MG/DL (8.5-10.1); Glucose 232 MG/DL (74-106); Osmolality,Calculated 290.8 MOS/KG (273-304); Potassium 2.9 MMOL/L (3.5-5.1); Sodium 137 MMOL/L (136-145)
[2018-08-09] MEDS: LEVOTHYROXINE 50 MCG TABLET PO SCH (05:44)
[2018-08-09] MEDS ORDERED: POTASSIUM CHLORIDE 20 MEQ TABLET PO ONE ×2 (06:45→10:00)
[2018-08-09] MEDS: BUDESONIDE 0.5 MG/2 ML NEB RESP TX SCH ×2 (07:00→19:38)
[2018-08-09] MEDS: CLORAZEPATE 3.75 MG TABLET PO SCH ×3 (08:41→21:39)
[2018-08-09] MEDS: MULTIVITAMIN (OCUVITE) TABLET PO SCH (08:41)
[2018-08-09] MEDS: DILTIAZEM CD 240 MG CAPSULE PO SCH (08:42)
[2018-08-09] MEDS: MONTELUKAST 10 MG TABLET PO SCH ×2 (08:42→21:39)
[2018-08-09] MEDS: PANTOPRAZOLE 40 MG TABLET PO SCH ×2 (08:42→21:39)
[2018-08-09] MEDS: SPIRONOLACTONE 25 MG TABLET PO SCH ×2 (08:42→21:43)
[2018-08-09] MEDS: CARVEDILOL 12.5 MG TABLET PO SCH ×2 (08:42→21:39)
[2018-08-09] MEDS: CYANOCOBALAMIN 500 MCG TABLET PO SCH (08:42)
[2018-08-09] MEDS: busPIRone 5 MG TABLET PO SCH ×2 (08:42→21:39)
[2018-08-09] MEDS: THEOPHYLLINE ER 300 MG TABLET PO SCH (08:42)
[2018-08-09] MEDS: TOLTERODINE LA 4 MG CAPSULE PO SCH (08:43)
[2018-08-09] MEDS: POTASSIUM CHLORIDE 20 MEQ TABLET PO SCH (08:43)
[2018-08-09] MEDS: methylPREDNISolone SOD SUC 40 MG/1 ML VIAL IV SCH ×2 (08:43→21:39)
[2018-08-09] MEDS: GABAPENTIN 300 MG CAPSULE PO SCH ×3 (08:43→21:39)
[2018-08-09] MEDS: NYSTATIN 500,000 UNIT/5 ML UDCUP SWISH/SWAL SCH ×3 (08:43→17:05)
[2018-08-09] MEDS: CETIRIZINE 10 MG TABLET PO SCH (08:48)
[2018-08-09] MEDS ORDERED: POTASSIUM CHLORIDE 20 MEQ TABLET PO SCH (11:30)
[2018-08-09] MEDS ORDERED: BISACODYL 5 MG TABLET PO ONE (14:42)
[2018-08-09] MEDS ORDERED: MAGNESIUM HYDROXIDE SUSP 30 ML UDCUP PO PRN (20:48)
[2018-08-09] MEDS: ASPIRIN EC 81 MG TABLET PO SCH (21:38)
[2018-08-09] MEDS: CHOLECALCIFEROL 1,000 UNIT TABLET PO SCH (21:39)
[2018-08-09] MEDS: ROSUVASTATIN 20 MG TABLET PO SCH (21:39)
[2018-08-09] MEDS: MAGNESIUM OXIDE 400 MG TABLET PO SCH (21:43)
[2018-08-09] MEDS: rOPINIRole 1 MG TABLET PO SCH (21:43)
[2018-08-10] MEDS: NYSTATIN 500,000 UNIT/5 ML UDCUP SWISH/SWAL SCH ×2 (00:01→08:47)
[2018-08-10] MEDS: LEVALBUTEROL 1.25 MG/3 ML NEB RESP TX SCH ×4 (00:12→11:02)
[2018-08-10 05:55] LABS: Calcium 9.2 MG/DL (8.5-10.1); Potassium 3.7 MMOL/L (3.5-5.1)
[2018-08-10] MEDS: LEVOTHYROXINE 50 MCG TABLET PO SCH (06:54)
[2018-08-10] MEDS ORDERED: DORNASE ALFA 2.5 MG/2.5 ML VIAL RESP TX STA (07:25)
[2018-08-10] MEDS: BUDESONIDE 0.5 MG/2 ML NEB RESP TX SCH (07:30)
[2018-08-10] MEDS ORDERED: HYDROcodone/CHLORPHENIRAMINE ER 5 ML UDCUP PO ONE (07:44)
[2018-08-10] MEDS ORDERED: MAGNESIUM CITRATE 300 ML BOTTLE PO ONE (08:40)
[2018-08-10] MEDS: methylPREDNISolone SOD SUC 40 MG/1 ML VIAL IV SCH (08:45)
[2018-08-10] MEDS: PANTOPRAZOLE 40 MG TABLET PO SCH (08:46)
[2018-08-10] MEDS: CLORAZEPATE 3.75 MG TABLET PO SCH (08:46)
[2018-08-10] MEDS: INSULIN LISPRO 100 UNIT/ML SUBCUT SCH ×2 (08:46→11:53)
[2018-08-10] MEDS: DILTIAZEM CD 240 MG CAPSULE PO SCH (08:47)
[2018-08-10] MEDS: TOLTERODINE LA 4 MG CAPSULE PO SCH (08:47)
[2018-08-10] MEDS: GABAPENTIN 300 MG CAPSULE PO SCH (08:47)
[2018-08-10] MEDS: MULTIVITAMIN (OCUVITE) TABLET PO SCH (08:47)
[2018-08-10] MEDS: THEOPHYLLINE ER 300 MG TABLET PO SCH (08:47)
[2018-08-10] MEDS: busPIRone 5 MG TABLET PO SCH (08:47)
[2018-08-10] MEDS: CETIRIZINE 10 MG TABLET PO SCH (08:47)
[2018-08-10] MEDS: CYANOCOBALAMIN 500 MCG TABLET PO SCH (08:47)
[2018-08-10] MEDS: CARVEDILOL 12.5 MG TABLET PO SCH (08:47)
[2018-08-10] MEDS: MONTELUKAST 10 MG TABLET PO SCH (08:47)
[2018-08-10] MEDS: SPIRONOLACTONE 25 MG TABLET PO SCH (08:47)
[2018-08-10] MEDS ORDERED: FLUTICASONE 50 MCG NASAL SPRAY 16 GM BOTTLE BOTH NARES SCH (09:00)
[2018-08-10 13:20] VITALS: BP 112/88
== END 2018-08-10 13:30 | disposition swing bed (61) | DRG 190 ==
LOC: EDUNIT# → EDBD → N.EDINP 13:24 → N.ED 13:24 → N.5E 19:15 → SUATTDRO 08-07 09:36
PROVIDERS: ADMIT Internal Medicine; ATTEND Internal Medicine Cardiovascular Disease

== ENCOUNTER 2018-09-13 01:26 | Inpatient (IN) ==
[2018-09-13 04:33] LABS: Basophils % 0.4 % (0.0-0.8); Eosinophils % 0.8 % (0.00-10.9); Hematocrit 28.4 VOL% (35.7-47.0); Hemoglobin 8.9 GM/DL (12.0-16.0); Immature Granulocytes % 0.6 %; Immature Granulocytes Absolute 0.03 #; Lymphocytes % 20.4 % (21.3-54.2); Mean Corpuscular HGB Conc 31.3 GM/DL (32-36); Mean Corpuscular Hemoglobin 31 PG (27-34); Mean Platelet Volume 10.3 FL (9.6-12.0); Monocytes # 0.6 10*3/uL (0.11-0.8); Monocytes % 11.1 % (1.7-12.7); NRBC # 0.02 10*3/uL; Neutrophils # 3.3 10*3/uL (1.4-7.4); Neutrophils % 66.7 % (38.7-73.9); Platelet Count 111 T/CUMM (130-400); Red Blood Count 2.87 MC/CUMM (3.8-5.5); Red Cell Distribution Width 15.8 % (9.3-17.3)
[2018-09-13 04:55] LABS: Albumin 2.7 G/DL (3.4-5.0); Bilirubin,Total 0.8 MG/DL (0.2-1.0); Calcium 9.6 MG/DL (8.5-10.1); Osmolality,Calculated 281.7 MOS/KG (273-304); Total Protein 6.6 G/DL (6.4-8.3)
[2018-09-13 06:21] LABS: Apearance,Urine Slightly Hazy (Clear); Bilirubin,Urine Negative (Negative); Blood, Urine Negative (Negative); Glucose,Urine (UA) Negative (Negative); Ketones,Urine 5 mg/dL (Negative); Nitrite,Urine Negative (Negative); Protein,Urine 30 MG/DL; Squamous Epithelial Cell,Urine Occasional /HPF (0-10); Urine Color Yellow (Yellow); Urine Specific Gravity 1.009 (1.001-1.035); Urine Urobilinogen < 2.0 EU/DL (0.2-1.0); WBC,Urine 2 /HPF (0-6)
[2018-09-13 07:02] LABS: Barbiturates Screen,Urine Negative (Negative); Benzodiazepines Screen,Urine Positive (Negative); Cannabinoid Screen,Urine Negative (Negative); Opiate Screen,Urine Positive (Negative); Phencyclidine Screen,Urine Negative (Negative)
[2018-09-13] MEDS ORDERED: HALOPERIDOL 5 MG/ML AMP IM STA (07:26)
[2018-09-13] MEDS ORDERED: HALOPERIDOL 5 MG/ML AMP ONE (07:30)
[2018-09-13] MEDS ORDERED: ONDANSETRON 4 MG/2 ML VIAL IV PRN (07:32)
[2018-09-13] MEDS ORDERED: HALOPERIDOL 5 MG/ML AMP IM PRN (07:46)
[2018-09-13 09:40] LABS: ABG Base Excess 13.2 MMOL/L (-2.5-2.5); ABG Oxygen Saturation 96.5 % (95-100); ABG PCO2 62.8 MM HG (35-48); ABG PH 7.416 (7.35-7.45); ABG PO2 87.8 MM HG (80-95); ABG TCO2 36.7 MMOL/L (23-27); Allen Test Positive
[2018-09-13] MEDS ORDERED: MAGNESIUM HYDROXIDE SUSP 30 ML UDCUP PO PRN (11:26)
[2018-09-13] MEDS ORDERED: HALOPERIDOL 5 MG/ML AMP IV PRN (14:06)
[2018-09-13] MEDS: ENOXAPARIN 30 MG/0.3 ML SYRINGE SUBCUT SCH (14:14)
[2018-09-13] MEDS ORDERED: ROSUVASTATIN 20 MG TABLET PO SCH (21:00)
[2018-09-13] MEDS: busPIRone 5 MG TABLET PO SCH (21:30)
[2018-09-13] MEDS: SPIRONOLACTONE 25 MG TABLET PO SCH (21:37)
[2018-09-13] MEDS: ASPIRIN EC 81 MG TABLET PO SCH (21:37)
[2018-09-13] MEDS: PANTOPRAZOLE 40 MG TABLET PO SCH (21:37)
[2018-09-13] MEDS: MAGNESIUM OXIDE 400 MG TABLET PO SCH (21:37)
[2018-09-13] MEDS: CARVEDILOL 25 MG TABLET PO SCH (21:37)
[2018-09-13] MEDS: MONTELUKAST 10 MG TABLET PO SCH (21:38)
[2018-09-14 04:14] LABS: Basophils % 0.2 % (0.0-0.8); Eosinophils % 0.8 % (0.00-10.9); Hematocrit 29.9 VOL% (35.7-47.0); Immature Granulocytes % 0.4 %; Immature Granulocytes Absolute 0.02 #; Lymphocytes # 0.8 10*3/uL (1.4-4.0); Lymphocytes % 16.4 % (21.3-54.2); Mean Corpuscular HGB Conc 30.1 GM/DL (32-36); Mean Corpuscular Hemoglobin 31 PG (27-34); Mean Corpuscular Volume 102.7 FL (87-102); Mean Platelet Volume 10.1 FL (9.6-12.0); Monocytes # 0.4 10*3/uL (0.11-0.8); Neutrophils # 3.7 10*3/uL (1.4-7.4); Neutrophils % 74.2 % (38.7-73.9); Platelet Count 100 T/CUMM (130-400); Red Blood Count 2.91 MC/CUMM (3.8-5.5); Red Cell Distribution Width 15.9 % (9.3-17.3)
[2018-09-14 04:49] LABS: Calcium 9.3 MG/DL (8.5-10.1); Potassium 3.3 MMOL/L (3.5-5.1)
[2018-09-14] MEDS ORDERED: DEXTROSE 50% 25 GM/50 ML SYRINGE IV ONE (06:52)
[2018-09-14] MEDS ORDERED: DEXTROSE 50% 25 GM/50 ML SYRINGE IV PRN (06:56)
[2018-09-14] MEDS: LEVOTHYROXINE 50 MCG TABLET PO SCH (07:18)
[2018-09-14] MEDS: SPIRONOLACTONE 25 MG TABLET PO SCH (09:27)
[2018-09-14] MEDS: DILTIAZEM CD 240 MG CAPSULE PO SCH (09:27)
[2018-09-14] MEDS: busPIRone 5 MG TABLET PO SCH ×2 (09:27→21:06)
[2018-09-14] MEDS: amLODIPine 5 MG TABLET PO SCH (09:28)
[2018-09-14] MEDS: PANTOPRAZOLE 40 MG TABLET PO SCH ×2 (09:28→21:06)
[2018-09-14] MEDS: MONTELUKAST 10 MG TABLET PO SCH ×2 (09:28→21:07)
[2018-09-14] MEDS: CARVEDILOL 25 MG TABLET PO SCH ×2 (09:28→21:06)
[2018-09-14] MEDS: THEOPHYLLINE ER 300 MG TABLET PO SCH (09:29)
[2018-09-14] MEDS ORDERED: SODIUM CHLORIDE 0.9% 250 ML IV ONE (11:41)
[2018-09-14 13:42] LABS: Calcium 9.3 MG/DL (8.5-10.1); Osmolality,Calculated 295.7 MOS/KG (273-304); Potassium 3.2 MMOL/L (3.5-5.1)
[2018-09-14 13:49] LABS: Troponin I < 0.015 NG/ML (0.00-0.045)
[2018-09-14] MEDS ORDERED: diphenhydrAMINE 50 MG/1 ML VIAL ONE (13:51)
[2018-09-14] MEDS ORDERED: diphenhydrAMINE 50 MG/1 ML VIAL IV ONE (13:55)
[2018-09-14] MEDS: SODIUM CHLORIDE 0.9% 1,000 ML IV SCH (14:21)
[2018-09-14] MEDS: ENOXAPARIN 30 MG/0.3 ML SYRINGE SUBCUT SCH (14:22)
[2018-09-14] MEDS ORDERED: MAGNESIUM SULF RIDER 2 GM in PREMIX 1 EACH IV ONE (15:18)
[2018-09-14] MEDS: POTASSIUM CHLORIDE RIDER 10 MEQ in PREMIX 1 EACH IV SCH ×4 (15:48→21:58)
[2018-09-14] MEDS: HALOPERIDOL 5 MG/ML AMP IM PRN (15:57)
[2018-09-14] MEDS ORDERED: LORazepam 2 MG/1 ML VIAL IV ONE (18:51)
[2018-09-14] MEDS ORDERED: POTASSIUM CHLORIDE RIDER 100 ML IV ONE ×2 (20:37→21:52)
[2018-09-14] MEDS: ASPIRIN EC 81 MG TABLET PO SCH (21:06)
[2018-09-14] MEDS: MAGNESIUM OXIDE 400 MG TABLET PO SCH (21:06)
[2018-09-14] MEDS: ALBUTEROL/IPRATROPIUM 3 ML NEB RESP TX PRN (21:43)
[2018-09-15] MEDS: SODIUM CHLORIDE 0.9% 1,000 ML IV SCH ×3 (04:54→12:10)
[2018-09-15] MEDS: LEVOTHYROXINE 50 MCG TABLET PO SCH (05:00)
[2018-09-15] MEDS: LORazepam 2 MG/1 ML VIAL IM PRN (05:09)
[2018-09-15 05:30] LABS: Calcium 8.9 MG/DL (8.5-10.1); Potassium 3.8 MMOL/L (3.5-5.1)
[2018-09-15] MEDS: busPIRone 5 MG TABLET PO SCH ×2 (08:48→21:09)
[2018-09-15] MEDS: CARVEDILOL 25 MG TABLET PO SCH ×2 (08:49→21:09)
[2018-09-15] MEDS: MONTELUKAST 10 MG TABLET PO SCH ×2 (08:49→21:09)
[2018-09-15] MEDS: PANTOPRAZOLE 40 MG TABLET PO SCH ×2 (08:49→21:10)
[2018-09-15] MEDS: ALPRAZolam 0.25 MG TABLET PO PRN ×3 (08:50→21:48)
[2018-09-15] MEDS: DILTIAZEM CD 240 MG CAPSULE PO SCH (08:50)
[2018-09-15] MEDS: THEOPHYLLINE ER 300 MG TABLET PO SCH (08:52)
[2018-09-15] MEDS: HALOPERIDOL 5 MG/ML AMP IM PRN ×2 (08:54→15:34)
[2018-09-15] MEDS ORDERED: predniSONE 10 MG TABLET PO SCH (09:00)
[2018-09-15] MEDS: amLODIPine 5 MG TABLET PO SCH (09:08)
[2018-09-15] MEDS: ALBUTEROL/IPRATROPIUM 3 ML NEB RESP TX PRN ×2 (09:23→22:40)
[2018-09-15] MEDS: ENOXAPARIN 30 MG/0.3 ML SYRINGE SUBCUT SCH (11:20)
[2018-09-15] MEDS: ASPIRIN EC 81 MG TABLET PO SCH (21:10)
[2018-09-15] MEDS: MAGNESIUM OXIDE 400 MG TABLET PO SCH (21:15)
[2018-09-16] MEDS: SODIUM CHLORIDE 0.9% 1,000 ML IV SCH ×2 (00:57→02:16)
[2018-09-16] MEDS: LORazepam 2 MG/1 ML VIAL IM PRN (02:52)
[2018-09-16] MEDS: METOPROLOL TARTRATE 5 MG/5 ML VIAL IV PRN ×2 (04:12→11:41)
[2018-09-16] MEDS: DILTIAZEM CD 240 MG CAPSULE PO SCH ×2 (05:26→08:39)
[2018-09-16 05:45] LABS: Basophils % 0.2 % (0.0-0.8); Eosinophils # 0.1 10*3/uL (0.0-0.87); Eosinophils % 1.2 % (0.00-10.9); Hematocrit 29.3 VOL% (35.7-47.0); Hemoglobin 8.8 GM/DL (12.0-16.0); Immature Granulocytes % 1.2 %; Immature Granulocytes Absolute 0.06 #; Lymphocytes # 0.6 10*3/uL (1.4-4.0); Lymphocytes % 12.3 % (21.3-54.2); Mean Corpuscular Hemoglobin 31 PG (27-34); Mean Corpuscular Volume 102.4 FL (87-102); Mean Platelet Volume 11.2 FL (9.6-12.0); Monocytes # 0.4 10*3/uL (0.11-0.8); Monocytes % 6.7 % (1.7-12.7); Neutrophils # 4.1 10*3/uL (1.4-7.4); Neutrophils % 78.4 % (38.7-73.9); Platelet Count 118 T/CUMM (130-400); Red Blood Count 2.86 MC/CUMM (3.8-5.5); Red Cell Distribution Width 15.9 % (9.3-17.3); White Blood Count 5.2 T/CUMM (4-12)
[2018-09-16 06:09] LABS: Calcium 8.6 MG/DL (8.5-10.1); Osmolality,Calculated 286.1 MOS/KG (273-304); Potassium 3.3 MMOL/L (3.5-5.1)
[2018-09-16] MEDS: LEVOTHYROXINE 50 MCG TABLET PO SCH (06:32)
[2018-09-16 06:46] LABS: Anisocytosis 2+; Band Neutrophils 4 % (0-10); Lymphocytes 11 % (20-55); Platelet Estimate Adequate; Segmented Neutrophils 75 % (50-85); Total Cells Counted 100
[2018-09-16 06:47] LABS: Macrocytosis 1+
[2018-09-16] MEDS: busPIRone 5 MG TABLET PO SCH ×2 (08:38→20:13)
[2018-09-16] MEDS: MONTELUKAST 10 MG TABLET PO SCH ×2 (08:38→20:13)
[2018-09-16] MEDS: POTASSIUM CHLORIDE RIDER 10 MEQ in PREMIX 1 EACH IV SCH ×4 (08:38→11:38)
[2018-09-16] MEDS: THEOPHYLLINE ER 300 MG TABLET PO SCH (08:43)
[2018-09-16] MEDS: PANTOPRAZOLE 40 MG TABLET PO SCH (08:43)
[2018-09-16] MEDS: ALBUTEROL/IPRATROPIUM 3 ML NEB RESP TX PRN (10:24)
[2018-09-16] MEDS: ENOXAPARIN 30 MG/0.3 ML SYRINGE SUBCUT SCH (11:34)
[2018-09-16] MEDS: PANTOPRAZOLE 40 MG VIAL IV SCH (11:34)
[2018-09-16] MEDS: ALPRAZolam 0.25 MG TABLET PO PRN (11:46)
[2018-09-16] MEDS ORDERED: METOPROLOL TARTRATE 25 MG TABLET PO SCH (12:00)
[2018-09-16] MEDS: THEOPHYLLINE 5.33 MG/ML 30 ML/BOTTLE PO SCH ×3 (13:00→23:35)
[2018-09-16] MEDS ORDERED: POTASSIUM CHLORIDE 20 MEQ/15 ML UDCUP PO ONE (15:59)
[2018-09-16] MEDS: SOTALOL 80 MG TABLET PO SCH ×2 (16:39→20:13)
[2018-09-16] MEDS: CARVEDILOL 25 MG TABLET PO SCH (16:40)
[2018-09-16] MEDS: QUEtiapine 25 MG TABLET PO SCH (20:14)
[2018-09-16] MEDS: MAGNESIUM OXIDE 400 MG TABLET PO SCH (20:15)
[2018-09-16] MEDS: ASPIRIN EC 81 MG TABLET PO SCH (20:24)
[2018-09-17] MEDS: ALBUTEROL/IPRATROPIUM 3 ML NEB RESP TX PRN (02:40)
[2018-09-17 04:55] LABS: Basophils % 0.1 % (0.0-0.8); Eosinophils # 0.1 10*3/uL (0.0-0.87); Eosinophils % 0.9 % (0.00-10.9); Hematocrit 28.8 VOL% (35.7-47.0); Hemoglobin 8.7 GM/DL (12.0-16.0); Immature Granulocytes % 0.9 %; Immature Granulocytes Absolute 0.07 #; Lymphocytes # 0.9 10*3/uL (1.4-4.0); Mean Corpuscular HGB Conc 30.2 GM/DL (32-36); Mean Corpuscular Hemoglobin 31 PG (27-34); Mean Corpuscular Volume 103.2 FL (87-102); Mean Platelet Volume 10.3 FL (9.6-12.0); Monocytes # 0.6 10*3/uL (0.11-0.8); Monocytes % 7.5 % (1.7-12.7); Neutrophils # 6.2 10*3/uL (1.4-7.4); Neutrophils % 79.6 % (38.7-73.9); Red Blood Count 2.79 MC/CUMM (3.8-5.5); Red Cell Distribution Width 16.2 % (9.3-17.3); White Blood Count 7.8 T/CUMM (4-12)
[2018-09-17 05:11] LABS: Platelet Count 98 T/CUMM (130-400)
[2018-09-17 05:22] LABS: Band Neutrophils 1 % (0-10); Calcium 8.7 MG/DL (8.5-10.1); Hypochromasia 1+; Lymphocytes 9 % (20-55); Osmolality,Calculated 292.7 MOS/KG (273-304); Potassium 3.9 MMOL/L (3.5-5.1); Segmented Neutrophils 84 % (50-85); Total Cells Counted 100
[2018-09-17 05:23] LABS: Macrocytosis 1+; Ovalocytes Slight; Platelet Estimate Decreased; Tear Drop Cells Slight
[2018-09-17 05:27] LABS: Calcium 8.7 MG/DL (8.5-10.1); Osmolality,Calculated 290.8 MOS/KG (273-304); Potassium 3.9 MMOL/L (3.5-5.1); Prealbumin 10.7 MG/DL (20-40)
[2018-09-17] MEDS: THEOPHYLLINE 5.33 MG/ML 30 ML/BOTTLE PO SCH ×4 (05:46→23:51)
[2018-09-17] MEDS: LEVOTHYROXINE 50 MCG TABLET PO SCH (05:46)
[2018-09-17] MEDS: PANTOPRAZOLE 40 MG VIAL IV SCH (08:41)
[2018-09-17] MEDS: busPIRone 5 MG TABLET PO SCH ×2 (08:41→21:38)
[2018-09-17] MEDS: SOTALOL 80 MG TABLET PO SCH ×2 (08:42→21:42)
[2018-09-17] MEDS: CARVEDILOL 25 MG TABLET PO SCH ×2 (08:42→17:24)
[2018-09-17] MEDS: MONTELUKAST 10 MG TABLET PO SCH ×2 (08:42→21:41)
[2018-09-17] MEDS: QUEtiapine 25 MG TABLET PO SCH ×2 (08:42→21:38)
[2018-09-17] MEDS: DILTIAZEM CD 240 MG CAPSULE PO SCH (08:43)
[2018-09-17] MEDS ORDERED: POTASSIUM PHOSPHATE 30 MMOL in SODIUM CHLORIDE 0.9% 250 ML IV ONE (09:30)
[2018-09-17] MEDS: ENOXAPARIN 30 MG/0.3 ML SYRINGE SUBCUT SCH (11:09)
[2018-09-17] MEDS: ASCORBIC ACID 500 MG TABLET PO SCH ×2 (11:42→21:41)
[2018-09-17] MEDS: DESITIN 4OZ/NYSTATIN 15 GRAM MIXTURE PASTE TOP SCH ×2 (15:09→21:41)
[2018-09-17] MEDS ORDERED: methylPREDNISolone SOD SUC 40 MG/1 ML VIAL IV ONE (19:36)
[2018-09-17] MEDS ORDERED: ALBUTEROL/IPRATROPIUM 3 ML NEB RESP TX ONE (19:36)
[2018-09-17 19:52] LABS: ABG Base Excess 5.4 MMOL/L (-2.5-2.5); ABG HCO3 29.2 MMOL/L (20-26); ABG Oxygen Saturation 90.8 % (95-100); ABG PH 7.277 (7.35-7.45); ABG PO2 68.9 MM HG (80-95); ABG TCO2 31.9 MMOL/L (23-27)
[2018-09-17 19:54] LABS: ABG PCO2 73.3 MM HG (35-48)
[2018-09-17] MEDS ORDERED: FUROSEMIDE 40 MG/4 ML VIAL IV ONE (20:39)
[2018-09-17] MEDS: MAGNESIUM OXIDE 400 MG TABLET PO SCH (21:41)
[2018-09-17] MEDS: ASPIRIN CHEW 81 MG TABLET PO SCH (21:41)
[2018-09-17] MEDS: CHOLECALCIFEROL 1,000 UNIT TABLET PO SCH (21:41)
[2018-09-17] MEDS: PIPERACILLIN/TAZOBACTAM 3,375 MG in SODIUM CHLORIDE 0.9% 100 ML IV SCH (21:43)
[2018-09-18] MEDS: METOPROLOL TARTRATE 5 MG/5 ML VIAL IV PRN (04:26)
[2018-09-18] MEDS: PIPERACILLIN/TAZOBACTAM 3,375 MG in SODIUM CHLORIDE 0.9% 100 ML IV SCH ×3 (04:31→21:49)
[2018-09-18 05:31] LABS: Hematocrit 31.1 VOL% (35.7-47.0); Hemoglobin 9.5 GM/DL (12.0-16.0); Immature Granulocytes % 1.5 %; Immature Granulocytes Absolute 0.13 #; Lymphocytes # 0.5 10*3/uL (1.4-4.0); Lymphocytes % 5.6 % (21.3-54.2); Mean Corpuscular HGB Conc 30.5 GM/DL (32-36); Mean Corpuscular Hemoglobin 31 PG (27-34); Mean Corpuscular Volume 101.6 FL (87-102); Mean Platelet Volume 11.2 FL (9.6-12.0); Monocytes # 0.2 10*3/uL (0.11-0.8); Monocytes % 2.1 % (1.7-12.7); Neutrophils # 7.8 10*3/uL (1.4-7.4); Neutrophils % 90.8 % (38.7-73.9); Platelet Count 99 T/CUMM (130-400); Red Blood Count 3.06 MC/CUMM (3.8-5.5); Red Cell Distribution Width 16.4 % (9.3-17.3); White Blood Count 8.6 T/CUMM (4-12)
[2018-09-18 06:01] LABS: Band Neutrophils 2 % (0-10); Hypochromasia 1+; Lymphocytes 4 % (20-55); Macrocytosis 1+; Segmented Neutrophils 93 % (50-85); Total Cells Counted 100
[2018-09-18 06:02] LABS: Osmolality,Calculated 295.1 MOS/KG (273-304); Platelet Estimate Decreased; Potassium 4.4 MMOL/L (3.5-5.1)
[2018-09-18 06:03] LABS: Risk Ratio 2.69; VLDL CHOLESTEROL 23.2 MG/DL
[2018-09-18] MEDS: LEVOTHYROXINE 50 MCG TABLET PO SCH (06:08)
[2018-09-18] MEDS: THEOPHYLLINE 5.33 MG/ML 30 ML/BOTTLE PO SCH ×3 (06:08→17:11)
[2018-09-18] MEDS: CARVEDILOL 25 MG TABLET PO SCH ×2 (07:25→16:50)
[2018-09-18] MEDS: busPIRone 5 MG TABLET PO SCH ×2 (07:25→21:48)
[2018-09-18] MEDS: SOTALOL 80 MG TABLET PO SCH ×2 (08:12→21:48)
[2018-09-18] MEDS: QUEtiapine 25 MG TABLET PO SCH ×2 (08:12→21:47)
[2018-09-18] MEDS: LANSOPRAZOLE ODT 30 MG TABLET PER TUBE SCH (08:12)
[2018-09-18 08:13] LABS: ABG Base Excess 10.2 MMOL/L (-2.5-2.5); ABG HCO3 35.4 MMOL/L (20-26); ABG Oxygen Saturation 94.5 % (95-100); ABG PH 7.451 (7.35-7.45); ABG PO2 75.4 MM HG (80-95); Allen Test Positive
[2018-09-18] MEDS: DESITIN 4OZ/NYSTATIN 15 GRAM MIXTURE PASTE TOP SCH ×2 (08:13→21:49)
[2018-09-18] MEDS: MONTELUKAST 10 MG TABLET PO SCH ×2 (08:13→21:48)
[2018-09-18] MEDS: ASCORBIC ACID 500 MG TABLET PO SCH ×2 (08:13→21:48)
[2018-09-18] MEDS ORDERED: GLUCAGON 1 MG VIAL IM PRN (08:22)
[2018-09-18] MEDS ORDERED: DEXTROSE 50% 25 GM/50 ML VIAL IV PRN (08:22)
[2018-09-18] MEDS ORDERED: INSULIN LISPRO 100 UNIT/ML SUBCUT SCH (12:00)
[2018-09-18] MEDS: ENOXAPARIN 30 MG/0.3 ML SYRINGE SUBCUT SCH (12:10)
[2018-09-18] MEDS ORDERED: SOTALOL 80 MG TABLET PO ONE (14:06)
[2018-09-18] MEDS: ALPRAZolam 0.25 MG TABLET PO PRN (21:47)
[2018-09-18] MEDS: CHOLECALCIFEROL 1,000 UNIT TABLET PO SCH (21:47)
[2018-09-18] MEDS: MAGNESIUM OXIDE 400 MG TABLET PO SCH (21:48)
[2018-09-18] MEDS: CARVEDILOL 12.5 MG TABLET PO SCH (21:48)
[2018-09-18] MEDS: ASPIRIN CHEW 81 MG TABLET PO SCH (21:49)
[2018-09-19] MEDS: THEOPHYLLINE 5.33 MG/ML 30 ML/BOTTLE PO SCH ×4 (00:05→17:58)
[2018-09-19] MEDS: LORazepam 2 MG/1 ML VIAL IM PRN ×2 (00:39→07:46)
[2018-09-19] MEDS: PIPERACILLIN/TAZOBACTAM 3,375 MG in SODIUM CHLORIDE 0.9% 100 ML IV SCH ×3 (05:37→22:10)
[2018-09-19 06:10] LABS: Albumin 2.2 G/DL (3.4-5.0); Bilirubin,Total 0.8 MG/DL (0.2-1.0); Calcium 9.1 MG/DL (8.5-10.1); Osmolality,Calculated 296.6 MOS/KG (273-304); Total Protein 6.1 G/DL (6.4-8.3)
[2018-09-19 06:23] LABS: Basophils % 0.1 % (0.0-0.8); Eosinophils % 0.1 % (0.00-10.9); Hematocrit 30.8 VOL% (35.7-47.0); Hemoglobin 9.2 GM/DL (12.0-16.0); Immature Granulocytes % 1.6 %; Immature Granulocytes Absolute 0.13 #; Lymphocytes # 0.8 10*3/uL (1.4-4.0); Lymphocytes % 10.3 % (21.3-54.2); Mean Corpuscular HGB Conc 29.9 GM/DL (32-36); Mean Corpuscular Hemoglobin 31 PG (27-34); Mean Corpuscular Volume 103.4 FL (87-102); Mean Platelet Volume 11.4 FL (9.6-12.0); Monocytes # 0.6 10*3/uL (0.11-0.8); Monocytes % 7.7 % (1.7-12.7); NRBC # 0.03 10*3/uL; Neutrophils # 6.4 10*3/uL (1.4-7.4); Neutrophils % 80.2 % (38.7-73.9); Platelet Count 112 T/CUMM (130-400); Red Blood Count 2.98 MC/CUMM (3.8-5.5); Red Cell Distribution Width 16.8 % (9.3-17.3)
[2018-09-19 06:25] LABS: Hypochromasia 1+; Ovalocytes Slight; Platelet Estimate Decreased
[2018-09-19 06:26] LABS: Macrocytosis Slight
[2018-09-19] MEDS: LEVOTHYROXINE 50 MCG TABLET PO SCH (06:42)
[2018-09-19] MEDS: ASCORBIC ACID 500 MG TABLET PO SCH ×2 (10:03→22:37)
[2018-09-19] MEDS: MONTELUKAST 10 MG TABLET PO SCH ×2 (10:03→22:37)
[2018-09-19] MEDS: QUEtiapine 25 MG TABLET PO SCH ×2 (10:04→22:37)
[2018-09-19] MEDS: SOTALOL 80 MG TABLET PO SCH ×2 (10:04→22:36)
[2018-09-19] MEDS: CARVEDILOL 12.5 MG TABLET PO SCH ×2 (10:04→22:37)
[2018-09-19] MEDS: busPIRone 5 MG TABLET PO SCH ×2 (10:04→22:36)
[2018-09-19] MEDS: LANSOPRAZOLE ODT 30 MG TABLET PER TUBE SCH (10:04)
[2018-09-19] MEDS: DESITIN 4OZ/NYSTATIN 15 GRAM MIXTURE PASTE TOP SCH ×2 (10:13→22:10)
[2018-09-19 11:01] LABS: ABG Base Excess 6.6 MMOL/L (-2.5-2.5); ABG HCO3 30.3 MMOL/L (20-26); ABG Oxygen Saturation 92.4 % (95-100); ABG PO2 79.2 MM HG (80-95); Allen Test Positive
[2018-09-19 11:04] LABS: ABG PCO2 91.1 MM HG (35-48)
[2018-09-19] MEDS: ENOXAPARIN 30 MG/0.3 ML SYRINGE SUBCUT SCH (12:23)
[2018-09-19] MEDS: ASPIRIN CHEW 81 MG TABLET PO SCH (22:36)
[2018-09-19] MEDS: MAGNESIUM OXIDE 400 MG TABLET PO SCH (22:37)
[2018-09-19] MEDS: CHOLECALCIFEROL 1,000 UNIT TABLET PO SCH (22:37)
[2018-09-20] MEDS: THEOPHYLLINE 5.33 MG/ML 30 ML/BOTTLE PO SCH ×4 (00:11→18:32)
[2018-09-20 05:28] LABS: Calcium 9.6 MG/DL (8.5-10.1); Osmolality,Calculated 302.1 MOS/KG (273-304); Potassium 4.6 MMOL/L (3.5-5.1)
[2018-09-20 05:40] LABS: Basophils % 0.3 % (0.0-0.8); Eosinophils % 0.1 % (0.00-10.9); Hematocrit 33.9 VOL% (35.7-47.0); Immature Granulocytes % 5.1 %; Immature Granulocytes Absolute 0.34 #; Lymphocytes # 0.7 10*3/uL (1.4-4.0); Mean Corpuscular HGB Conc 28.6 GM/DL (32-36); Mean Corpuscular Hemoglobin 31 PG (27-34); Mean Corpuscular Volume 108.7 FL (87-102); Mean Platelet Volume 10.4 FL (9.6-12.0); Monocytes # 0.6 10*3/uL (0.11-0.8); Monocytes % 9.3 % (1.7-12.7); NRBC # 0.07 10*3/uL; Neutrophils % 75.2 % (38.7-73.9); Platelet Count 118 T/CUMM (130-400); Red Blood Count 3.12 MC/CUMM (3.8-5.5); Red Cell Distribution Width 16.5 % (9.3-17.3); White Blood Count 6.7 T/CUMM (4-12)
[2018-09-20 05:42] LABS: Hemoglobin 9.7 GM/DL (12.0-16.0)
[2018-09-20] MEDS: PIPERACILLIN/TAZOBACTAM 3,375 MG in SODIUM CHLORIDE 0.9% 100 ML IV SCH ×3 (05:45→21:30)
[2018-09-20 05:46] LABS: Band Neutrophils 2 % (0-10); Hypochromasia 1+; Lymphocytes 9 % (20-55); Segmented Neutrophils 81 % (50-85); Total Cells Counted 100
[2018-09-20 05:47] LABS: Macrocytosis Slight; Ovalocytes Slight; Polychromasia Slight
[2018-09-20 05:48] LABS: Platelet Estimate Adequate
[2018-09-20] MEDS: LEVOTHYROXINE 50 MCG TABLET PO SCH (06:19)
[2018-09-20] MEDS: SOTALOL 80 MG TABLET PO SCH ×2 (10:23→22:30)
[2018-09-20] MEDS: busPIRone 5 MG TABLET PO SCH ×2 (10:23→22:30)
[2018-09-20] MEDS: LANSOPRAZOLE ODT 30 MG TABLET PER TUBE SCH (13:08)
[2018-09-20] MEDS: CARVEDILOL 12.5 MG TABLET PO SCH ×2 (13:08→22:30)
[2018-09-20] MEDS: QUEtiapine 25 MG TABLET PO SCH ×2 (13:20→22:30)
[2018-09-20] MEDS: MONTELUKAST 10 MG TABLET PO SCH ×2 (13:20→22:30)
[2018-09-20] MEDS: ASCORBIC ACID 500 MG TABLET PO SCH ×2 (13:21→22:31)
[2018-09-20] MEDS: DESITIN 4OZ/NYSTATIN 15 GRAM MIXTURE PASTE TOP SCH ×2 (13:21→22:31)
[2018-09-20] MEDS: ENOXAPARIN 30 MG/0.3 ML SYRINGE SUBCUT SCH (15:43)
[2018-09-20] MEDS: MAGNESIUM OXIDE 400 MG TABLET PO SCH (22:30)
[2018-09-20] MEDS: ASPIRIN CHEW 81 MG TABLET PO SCH (22:30)
[2018-09-20] MEDS: CHOLECALCIFEROL 1,000 UNIT TABLET PO SCH (22:31)
[2018-09-21] MEDS: THEOPHYLLINE 5.33 MG/ML 30 ML/BOTTLE PO SCH ×2 (02:22→06:34)
[2018-09-21] MEDS: PIPERACILLIN/TAZOBACTAM 3,375 MG in SODIUM CHLORIDE 0.9% 100 ML IV SCH (05:22)
[2018-09-21] MEDS: LEVOTHYROXINE 50 MCG TABLET PO SCH (06:35)
[2018-09-21] MEDS: LANSOPRAZOLE ODT 30 MG TABLET PER TUBE SCH (10:31)
[2018-09-21] MEDS: DESITIN 4OZ/NYSTATIN 15 GRAM MIXTURE PASTE TOP SCH (10:31)
[2018-09-21] MEDS: MONTELUKAST 10 MG TABLET PO SCH (10:31)
[2018-09-21] MEDS: SOTALOL 80 MG TABLET PO SCH (10:31)
[2018-09-21] MEDS: ASCORBIC ACID 500 MG TABLET PO SCH (10:31)
[2018-09-21] MEDS: busPIRone 5 MG TABLET PO SCH (10:31)
[2018-09-21] MEDS: QUEtiapine 25 MG TABLET PO SCH (10:31)
[2018-09-21] MEDS: CARVEDILOL 12.5 MG TABLET PO SCH (10:31)
[2018-09-21] MEDS ORDERED: MORPHINE 4 MG/1 ML VIAL IV PRN (11:07)
[2018-09-21 16:37] VITALS: BP 109/61
== END 2018-09-21 19:09 | disposition expired | DRG 57 ==
LOC: EDBD → EDUNIT# → N.EDINP 01:26 → N.ED 01:26 → SUATTDRO 07:23 → N.ICU 09:00 → SUATTDRO 09-14 13:14 → N.2E 09-18 17:34
PROVIDERS: ADMIT Internal Medicine; ATTEND Internal Medicine